=== PATIENT | male | born 1955 | race Caucasian/White ===

== ENCOUNTER 2017-05-28 12:10 | Inpatient (IN) | payer BC ==
--- NOTE | 2017-05-28 12:38 | ED Physician Chart ---
ED Chief Complaint/HPI - Patient Information Date Seen:: 05/28/17 Time Seen:: 12:20 Chief Complaint:: G-Tube Dysfunction History of Present Illness:: onset x 2 days of G-Tube dysfunction; pt reportedly has a history of G-Tube pulling type trauma; no report of H/As, S/T, neck pain, C/P, SOB, Abd. Pain, A/N /V/D/C, bleeding, fever, chills, or urinary s/s Historian:: Patient, EMS Review:: Nurse's Note Reviewed, Old Chart Reviewed, EMS run form Reviewed ED Review of Systems - Review of Systems General/Constitutional: No fever, No chills, No weight loss, No weakness, No diaphoresis, No edema, No loss of appetite Skin: No skin lesions, No rash, No bruising Head: No headache, No light-headedness Eyes: No loss of vision, No pain, No diplopia ENT: No earache, No nasal drainage, No sore throat, No tinnitus Neck: No neck pain, No swelling, No thyromegaly, No stiffness, No mass noted Cardio Vascular: No chest pain, No palpitations, No PND, No orthopnea, No edema Pulmonary: No SOB, No cough, No sputum, No wheezing GI: No nausea, No vomiting, No diarrhea, No pain, No melena, No hematochezia, No constipation, No hematemesis G/U: No dysuria, No frequency, No hematuria, No nacturia Musculoskeletal: No bone or joint pain, No back pain, No muscle pain Endocrine: No polyuria, No polydipsia Psychiatric: Prior psych history, Depression, Anxiety, No suicidal ideation, No homicidal ideation, Auditory hallucination, No visual hallucination Hematopoietic: No bruising, No lymphadenopathy Allergic/Immuno: No urticaria, No angioedema Neurological: No syncope, No focal symptoms, No weakness, No paresthesia, No headache, No seizure, No dizziness, No confusion, No vertigo ED Past Medical History - Past Medical History Obtainable: Yes Past Medical History: HTN, DM, CAD, CVA/TIA, Dyslipidemia, Dementia, Other ( Encephalopathy) Family History: Diabetes Melitus, HTN Social History: Non Smoker, No Alcohol, No Drug Use, Single, Care Facility Surgical History: PEG/GTube Psychiatricy History: Depression, Schizophrenia, Bipolar Medication: Reviewed ED Physical Exam - Physical Examination General/Constitutional: Awake, Well-developed, well-nourished, Alert, No distress, GCS 15, Non-toxic appearing, Ambulatory Head: Atraumatic Eyes: Lids, conjuctiva normal, PERRL, EOMI Skin: Nl inspection, No rash, No skin lesions, No ecchymosis, Well hydrated, No lymphadenopathy ENMT: External ears, nose nl, TM canals nl, Nasal exam nl, Lips, teeth, gums nl , Oropharynx nl, Tonsils nl Neck: Nontender, Full ROM w/o pain, No JVD, No nuchal rigidity, No bruit, No mass, No stridor Respiratory: Nl effort/Exclusion, Clear to Auscultation, No Wheeze/Rhonchi/Rales Cardio Vascular: RRR, No murmur, gallop, rubs, NL S1 S2, Carotid/Femoral/Distal pulses equal bilaterally GI: No tenderness/rebounding/guarding, No organomegaly, No hernia, Normal BS's, Nondistended, No mass/bruits, No McBurney tenderness, Rectum exam nl Other GI comments:: + Dysfunctional G-Tube : No CVA tenderness Extremities: No tenderness or effusion, Full ROM, normal strength in all extremities, No edema, Normal digits & nails Neuro/Psych: Alert/oriented, DTR's symmetric, Normal sensory exam, Normal motor strength, Judgement/insight normal, Mood normal, Normal gait, No focal deficits Misc: Normal back, No paraspinal tenderness ED Labs/Radiology/EKG Results - Lab Results Comments:: Na+: 128; - Radiology Results Comments:: NAD - EKG Interpretations EKG Time:: 13:14 Rate & Rhythm: 111; ST Comments:: old IWMI; non-specific st-t changes ED Septic Shock - . Is Septic Shock (SBP<90, OR Lactate>4 mmol\L) present?: No ED Reassessment (Disposition) - Reassessment Reassessment Condition:: Improved - Diagnosis Diagnosis:: G-Tube Dysfunction; Anemia; Hyponatremia; Tachyarrythmia; Dehydration - Aftercare/Follow up Instructions Aftercare/Follow-Up Instructions:: Counseled pt regarding lab results/diagnosis & need follow up, Counseled pt & family regarding lab results/diagnosis & need follow up - Patient Disposition Discharge/Transfer:: Acute Care w/in this hosp Accepting Physician:: Dr. Nicolle Gramajo Time Called:: 1430 Time Responded:: 14:30 Admitted to:: Med/Surg Spoke to:: Dr. Nicolle Gramajo Admitting Medical Physician:: Dr. Nicolle Gramajo Condition at Disposition:: Stable, Improved
[2017-05-28] MEDS ORDERED: Haloperidol Lactate 5 mg/mL 1mL Vial IVP ONE (12:42)
[2017-05-28] MEDS ORDERED: Haloperidol Lactate 5 mg/mL 1mL Vial ONE (12:53)
[2017-05-28 13:13] LABS: % BASOPHILS 0.3 % (0.0-2.0); % EOSINOPHILS 0.2 % (0.0-5.0); % LYMPHOCYTES 6.7 % (20.0-50.0); % MONOCYTES 10.5 % (2.0-10.0); % NEUTROPHILS 82.3 % (40.0-80.0); HEMATOCRIT 35.8 % (41.0-60); HEMOGLOBIN 12.1 gm/dL (12-16); LYMPHOCYTE ABSOLUTE 0.7 Th/cmm (1.5-3.0); MEAN CELL VOLUME 81.4 fl (80-99); MEAN CORPUSCULAR HEMOGLOBIN 27.4 pg (26.0-30.0); MEAN CORPUSCULAR HGB CONC 33.7 pg (28.0-36.0); MEAN PLATELET VOLUME 7.6 fl; MONOCYTE ABSOLUTE 1.1 Th/cmm (0.3-1.0); NEUTROPHILE ABSOLUTE 8.5 Th/cmm (1.8-8.0); PLATELET COUNT 319 Th/cmm (150-400); WHITE BLOOD COUNT 10.3 Th/cmm (4.8-10.8)
[2017-05-28 13:25] LABS: INR 1.08 (0.5-1.4); PROTHROMBIN TIME (TEST) 11.2 SECONDS (9.5-11.5)
[2017-05-28 13:30] LABS: ALB/GLOB RATIO 1.2 (1.0-1.8); ALBUMIN 3.7 gm/dL (4.2-5.5); ALKALINE PHOSPHATASE 62 U/L (34-104); ANION GAP 15.4 (7.0-16.0); BILIRUBIN,TOTAL 0.5 mg/dL (0.3-1.0); BUN - UREA NITROGEN 16 mg/dL (7-25); CALCIUM SERUM 9.6 mg/dL (8.6-10.3); CARBON DIOXIDE 23.4 mEq/L (21.0-31.0); CHLORIDE 93 mEq/L (98-107); CREATININE - SERUM 0.7 mg/dL (0.7-1.3); CREATININE KINASE 191 U/L (30-223); GFR AFRICAN-AMERICAN > 60.0 ml/min (>90); GFR NON AFRICAN-AMERICAN > 60.0 ml/min; GLUCOSE 96 mg/dL (70-105); POTASSIUM SERUM 3.8 mEq/L (3.5-5.1); SGOT 31 U/L (13-39); SGPT/ALT 27 U/L (7-52); SODIUM SERUM 128 mEq/L (136-145); TOTAL PROTEIN,SERUM 6.9 gm/dL (6.0-8.3)
[2017-05-28 13:42] LABS: TROP I 0.02 ng/mL (0.01-0.05)
--- NOTE | 2017-05-28 14:11 | Diagnostic Imaging Report ---
Portable chest x-ray History: Pain Allowing for portable technique the heart size is normal. No focal pulmonary parenchymal processes. No hilar or mediastinal abnormalities. Degenerative changes noted to the spine. Impression: No acute abnormalities.
[2017-05-28] MEDS ORDERED: Sodium Chloride 0.9% 1,000 ML IV ONE (19:31)
[2017-05-28] MEDS ORDERED: D5-0.45NS 1,000 ML IV SCH (21:17)
[2017-05-28] MEDS: INSULIN ASPART, RECOMBINANT 100 UNITS/ML SUBQ SCH (22:22)
[2017-05-28 22:29] VITALS: BP 143/92
--- NOTE | 2017-05-28 22:41 | Consultation ---
DATE OF CONSULTATION: 05/28/2017 HISTORY AND PHYSICAL: This is a 61-year-old male patient who [facility] with malfunction of the G-tube. The patient is admitted for G-tube placement. No history of PND or orthopnea. PAST MEDICAL HISTORY: The patient has a history of hypertension, diabetes mellitus type 2, stable angina, CVA with late effect, dementia, encephalopathy. FAMILY HISTORY: Diabetes, hypertension. SOCIAL HISTORY: No history of smoking, alcohol abuse. ALLERGIES: No known allergies. PHYSICAL EXAMINATION: VITAL SIGNS: Blood pressure 130/80, pulse 80, respirations 28. HEAD: Normocephalic. No lumps or bumps. EYES: Pupils equal, reactive to light. Fundi show AV nicking, sclerae white, conjunctivae pink. NECK: Carotid 2+. Normal upstroke. JVD flat. Thyroid not palpable. Lymph nodes not palpable. CHEST: Shows increased AP diameter. No kyphosis, scoliosis. LUNGS: Bilateral bronchovesicular breath sounds. HEART: PMI 5th intercostal space with lateral to midclavicular line. S1, S2. No S3, S4, soft systolic murmur grade 3/6 lower left sternal border without radiation. ABDOMEN: Soft. Liver and spleen not palpable. No organomegaly. Bowel sounds active. NEUROLOGIC: Dizziness, CVA with late effect, dysphagia. CLINICAL IMPRESSION: 1. Gastric tube malfunction. 2. Diabetes mellitus type 2. 3. Hypertension. 4. Cerebrovascular accident with late effect. 5. Dysphagia. 6. Protein-calorie malnutrition. 7. Hyperlipidemia. 8. Dementia. 9. Psychosis. PLAN: Admit the patient. We will have a GI consult for a G-tube placement. Continue present care. JOB# [id number]
[2017-05-29] MEDS: INSULIN ASPART, RECOMBINANT 100 UNITS/ML SUBQ SCH ×4 (06:37→23:18)
[2017-05-29] MEDS: D5-0.9%NS 1,000 ML IV SCH (18:50)
--- NOTE | 2017-05-30 03:53 | Consultation ---
DATE OF CONSULTATION: 05/29/2017 REFERRING PHYSICIAN: Dr. Gramajo. REASON FOR CONSULTATION: Malfunctioning G-tube. HISTORY: This is a 61-year-old male with a G-tube that had been pulled out. The patient, by the time I am seeing him G-tube site has closed completely. Discussed with the patient about reinserting it and he does not want one. States, he is able to eat, he would like to eat and does not want further feeding tubes placed in his abdomen. PAST MEDICAL HISTORY: Hypertension, diabetes, coronary artery disease, stroke, TIA, hyperlipidemia, dementia. PAST SURGICAL HISTORY: PEG tube in the past. FAMILY HISTORY: Noncontributory. SOCIAL HISTORY: No tobacco, alcohol or drug use. ALLERGIES: None. CURRENT MEDICATIONS: Insulin and IV fluids. REVIEW OF SYSTEMS: Unobtainable. PHYSICAL EXAMINATION: VITAL SIGNS: Temperature 99.3, breathing 18, pulse of 126, blood pressure 138/85, satting 97%. GENERAL: In no apparent distress. Eyes are anicteric. Normal conjunctivae. HEENT: Normocephalic, atraumatic. Moist mucous membranes. NECK: Soft, supple. CHEST: Clear, no effort. CARDIOVASCULAR: Regular rate and rhythm. ABDOMEN: Soft, nontender, nondistended. SKIN: Warm, dry. EXTREMITIES: Reveal no cyanosis. PSYCHOLOGICAL: Awake. LABORATORY DATA: Labs show a white count 10.3, hemoglobin 12.1, platelets 319. INR 1.08. LFTs within normal limits. IMPRESSION: A 61-year-old male with a malfunctioning G-tube. The patient pulled out the feeding tube. The hole now is closed. I did discuss with the patient reinserting it by doing a new PEG tube procedure. He refuses. He states he is able to eat. PLAN: 1. Consider swallow evaluation. 2. PEG tube was offered. The patient refused. Thank you for allowing me to participate. Please call me if any questions. JOB# [id number]
[2017-05-30 05:34] LABS: URINE MICROSCOPIC INDICATED? YES; URINE SOURCE MIDSTREAM
[2017-05-30 05:46] LABS: URINE BILIRUBIN SMALL (NEGATIVE); URINE BLOOD LARGE (NEGATIVE); URINE GLUCOSE (UA) NEGATIVE (NEGATIVE); URINE KETONE 15 mg/dL (NEGATIVE); URINE LEUKOCYTE ESTERASE TRACE (NEGATIVE); URINE NITRATE NEGATIVE (NEGATIVE); URINE PH 5.5 (4.6 - 8.0); URINE PROTEIN 30 mg/dL (NEGATIVE); URINE UROBILINOGEN 0.2 E.U./dL (0.2 - 1.0)
[2017-05-30 05:55] LABS: URINE CLARITY HAZY (CLEAR); URINE COLOR ORANGE
[2017-05-30 06:01] LABS: URINE ICTOTEST NEGATIVE (NEGATIVE)
[2017-05-30 06:02] LABS: URINE WBC 25-50 /hpf (0-5)
[2017-05-30 06:03] LABS: URINE BACTERIA MANY /hpf (NONE SEEN); URINE EPITHELIAL CELLS FEW /lpf (FEW)
[2017-05-30 07:24] LABS: HEMATOCRIT 37.9 % (41.0-60); HEMOGLOBIN 12.5 gm/dL (12-16); MEAN CELL VOLUME 81.6 fl (80-99); MEAN CORPUSCULAR HEMOGLOBIN 26.9 pg (26.0-30.0); MEAN PLATELET VOLUME 7.9 fl; PLATELET COUNT 313 Th/cmm (150-400); RED BLOOD COUNT 4.65 Mil/cmm (4.30-5.70); RED CELL DISTRIBUTION WIDTH 15.2 % (11.5-20.0)
[2017-05-30 07:28] LABS: INR 1.11 (0.5-1.4); PROTHROMBIN TIME (TEST) 11.6 SECONDS (9.5-11.5)
[2017-05-30 07:38] LABS: WHITE BLOOD COUNT 13.3 Th/cmm (4.8-10.8)
[2017-05-30 08:42] LABS: BAND NEUTROPHILE 1 % (0-10); LYMPHOCYTE 5 % (20-50); MANUAL DIFF REQUIRED? YES; NEUTROPHILS 81 % (40-80); TOTAL CELLS COUNTED 100
[2017-05-30 08:43] LABS: MONOCYTE 13 % (2-10); PLATELET ESTIMATE ADEQUATE (NORMAL)
[2017-05-30] MEDS: INSULIN ASPART, RECOMBINANT 100 UNITS/ML SUBQ SCH ×2 (11:56→17:06)
[2017-05-30] MEDS: D5-0.9%NS 1,000 ML IV SCH (14:33)
--- NOTE | 2017-05-30 17:20 | Operative Report ---
DATE OF SURGERY: 05/30/2017 INPATIENT GASTROINTESTINAL PROCEDURE NAME OF PROCEDURE: PEG tube placement. REFERRING PHYSICIAN: Dr. Gramajo. REASON FOR PROCEDURE: Dysphagia, anorexia. CONSENT: Risks, benefits, alternatives, nature, indication, and possible outcomes were discussed. Mentioned bleeding, infection, perforation, , disability, cardiopulmonary distress and arrest, missed lesion and cancers, need for surgery. The patient and his family expressed understanding and provided informed consent. Also, we made aware of the risk of leakage malfunctioning feeding tube and the patient pulling out the feeding tube. They understand this and again gave informed consent. PREOPERATIVE DIAGNOSES: Dysphagia, anorexia. POSTOPERATIVE DIAGNOSIS: PEG tube placement. MEDICATIONS: Ancef 1 gram provided by anesthesiologist as well as the MAC provided by anesthesiologist. DESCRIPTION OF PROCEDURE: The patient was placed on his back. Upper endoscope advanced from the mouth and second portion of duodenum, which revealed some duodenitis. Biopsies were taken. Scope was brought back into the stomach with retroflexion view of fundus, cardia, and lesser curvature. Scope was straightened and slowly withdrawn into the esophagus for further viewing. Scope was readvanced back into the stomach, which looked grossly normal. Scope was readvanced back down to the duodenum where biopsies were taken. Scope was then brought back to the stomach, insufflation was performed. Transillumination was seen in the left upper quadrant. The area was prepped in the usual sterile fashion. We cannot use the old G-tube site. Because it has already closed. The area was prepped in the usual sterile fashion, 3 mL of 1% lidocaine was used to anesthetize the area. Trocar was advanced from the anterior abdominal wall, entering into the stomach lumen. On endoscope view, wire was passed through the trocar, captured with a snare, and pulled out through the oral end ___. PEG tube was attached to the oral end of the guidewire. Small lateral incision was made at the entry site of the trocar. Wire was pulled into position pulling along with it, the PEG tube. The gastroscope was readvanced back in the stomach where the bumper was seen in satisfactory position. Scope was then removed. COMPLICATIONS: None. FINDINGS: 1. GE junction at 40 cm with a normal esophagus. 2. Normal appearing stomach with PEG tube placement. 3. Duodenitis, status post biopsy. RECOMMENDATIONS: 1. Use G-tube in 8 hours. 2. Check residual every 6 hours and hold it greater than 100 mL. 3. Abdominal binder to protect the G-tube. 4. Protonix 40 mg. Thank you for allowing me to participate. Please call me if any questions. JOB# [id number]
[2017-05-31] MEDS: INSULIN ASPART, RECOMBINANT 100 UNITS/ML SUBQ SCH ×5 (03:46→20:23)
--- NOTE | 2017-05-31 09:42 | GI Progress Note ---
Subjective - Review of Systems Subjective: NO EVENTS Objective - Results Result Diagrams: 05/30/17 05:45 05/28/17 12:51 Recent Labs: Laboratory Last Values WBC 13.3 Th/cmm (4.8-10.8) H D 05/30/17 05:45 RBC 4.65 Mil/cmm (4.30-5.70) 05/30/17 05:45 Hgb 12.5 gm/dL (12-16) 05/30/17 05:45 Hct 37.9 % (41.0-60) L 05/30/17 05:45 MCV 81.6 fl (80-99) 05/30/17 05:45 MCH 26.9 pg (26.0-30.0) 05/30/17 05:45 MCHC Differential 33.0 pg (28.0-36.0) 05/30/17 05:45 RDW 15.2 % (11.5-20.0) 05/30/17 05:45 Plt Count 313 Th/cmm (150-400) 05/30/17 05:45 MPV 7.9 fl 05/30/17 05:45 Neutrophils % PATIENT CARE REPRESENTATIVE 05/30/17 05:45 Band Neutrophils % 1 % (0-10) 05/30/17 05:45 Lymphocytes % PATIENT CARE REPRESENTATIVE 05/30/17 05:45 Monocytes % PATIENT CARE REPRESENTATIVE 05/30/17 05:45 Eosinophils % PATIENT CARE REPRESENTATIVE 05/30/17 05:45 Basophils % PATIENT CARE REPRESENTATIVE 05/30/17 05:45 Neutrophils (Manual) 81 % (40-80) H 05/30/17 05:45 Lymphocytes 5 % (20-50) L 05/30/17 05:45 Monocytes 13 % (2-10) H 05/30/17 05:45 Platelet Estimate ADEQUATE (NORMAL) 05/30/17 05:45 PT 11.6 SECONDS (9.5-11.5) H 05/30/17 05:45 INR 1.11 (0.5-1.4) 05/30/17 05:45 PTT (Actin FS) 28.6 SECONDS (26.0-38.0) 05/28/17 12:51 Sodium 128 mEq/L (136-145) L 05/28/17 12:51 Potassium 3.8 mEq/L (3.5-5.1) 05/28/17 12:51 Chloride 93 mEq/L (98-107) L 05/28/17 12:51 Carbon Dioxide 23.4 mEq/L (21.0-31.0) 05/28/17 12:51 Anion Gap 15.4 (7.0-16.0) 05/28/17 12:51 BUN 16 mg/dL (7-25) 05/28/17 12:51 Creatinine 0.7 mg/dL (0.7-1.3) 05/28/17 12:51 Est GFR ( Amer) > 60.0 ml/min (>90) 05/28/17 12:51 Est GFR (Non-Af Amer) > 60.0 ml/min 05/28/17 12:51 BUN/Creatinine Ratio 22.9 05/28/17 12:51 Glucose 96 mg/dL (70-105) 05/28/17 12:51 POC Glucose 123 MG/DL (70 - 105) H 05/31/17 06:27 Whole Bld Lactic Acid 1.12 mmol/L (0.60-1.99) 05/28/17 12:51 Calcium 9.6 mg/dL (8.6-10.3) 05/28/17 12:51 Total Bilirubin 0.5 mg/dL (0.3-1.0) 05/28/17 12:51 AST 31 U/L (13-39) 05/28/17 12:51 ALT 27 U/L (7-52) 05/28/17 12:51 Alkaline Phosphatase 62 U/L (34-104) 05/28/17 12:51 Creatine Kinase 191 U/L (30-223) 05/28/17 12:51 Troponin I 0.02 ng/mL (0.01-0.05) 05/28/17 12:51 Total Protein 6.9 gm/dL (6.0-8.3) 05/28/17 12:51 Albumin 3.7 gm/dL (4.2-5.5) L 05/28/17 12:51 Globulin 3.2 gm/dL 05/28/17 12:51 Albumin/Globulin Ratio 1.2 (1.0-1.8) 05/28/17 12:51 Urine Source MIDSTREAM 05/28/17 04:35 Urine Color ORANGE 05/28/17 04:35 Urine Clarity HAZY (CLEAR) 05/28/17 04:35 Urine pH 5.5 (4.6 - 8.0) 05/28/17 04:35 Ur Specific Weed >= 1.030 (1.005-1.030) 05/28/17 04:35 Urine Protein 30 mg/dL (NEGATIVE) H 05/28/17 04:35 Urine Glucose (UA) NEGATIVE mg/dL (NEGATIVE) 05/28/17 04:35 Urine Ketones 15 mg/dL (NEGATIVE) H 05/28/17 04:35 Urine Blood LARGE (NEGATIVE) H 05/28/17 04:35 Urine Nitrate NEGATIVE (NEGATIVE) 05/28/17 04:35 Urine Bilirubin SMALL (NEGATIVE) H 05/28/17 04:35 Urine Ictotest NEGATIVE (NEGATIVE) 05/28/17 04:35 Urine Urobilinogen 0.2 E.U./dL (0.2 - 1.0) 05/28/17 04:35 Ur Leukocyte Esterase TRACE (NEGATIVE) H 05/28/17 04:35 Urine RBC 5-10 /hpf (0-5) H 05/28/17 04:35 Urine WBC 25-50 /hpf (0-5) H 05/28/17 04:35 Ur Epithelial Cells FEW /lpf (FEW) 05/28/17 04:35 Urine Bacteria MANY /hpf (NONE SEEN) H 05/28/17 04:35 - Physical Exam Vitals and I&O: Vital Signs Temp 99.4 F 05/31/17 02:00 Pulse 115 05/31/17 08:29 Resp 18 05/31/17 02:00 BP 175/102 05/31/17 08:29 Pulse Ox 96 05/31/17 02:00 Intake & Output 05/30/17 05/31/17 05/31/17 18:59 06:59 18:59 Intake Total 969.167 Balance 969.167 Intake: Intake, IV Amount 969.167 D5-0.9%Ns 1,000 ml @ 50 969.167 mls/hr IV .Q20H [facility] Rx#: [id number] Active Medications: Current Medications Dextrose/Sodium Chloride (D5-0.9%Ns) 1,000 mls @ 50 mls/hr IV .Q20H [facility] Stop: 07/28/17 16:59 Last Admin: 05/30/17 14:33 Dose: 50 mls/hr Insulin Aspart (Novolog) 0 units SUBQ ACHS [facility] PRN Reason: Protocol Stop: 07/27/17 21:44 Last Admin: 05/31/17 06:37 Dose: Not Given Metoprolol Tartrate (Lopressor) 50 mg PO Q12HR [facility] Stop: 07/29/17 20:59 Last Admin: 05/31/17 08:29 Dose: 50 mg Mupirocin (Bactroban Oint) 1 appl NS BID [facility] Stop: 06/04/17 09:01 Last Admin: 05/31/17 08:30 Dose: 1 appl Pantoprazole Sodium (Protonix) 40 mg IVP DAILY [facility] Stop: 07/30/17 08:59 Last Admin: 05/31/17 08:30 Dose: 40 mg Assessment/Plan - Assessment Assessment: 61 YO MALE WITH DYSPHAGIA PT PULLED OUT HIS GT AND THE FISTULA HAD CLOSED THEREFORE EGD WAS DONE AND NEW PEG WAS PLACED ALSO HAD DUODENITIS JARAD TUBE FEEDS 1.CONT TUBE FEEDS JARAD 2.CONT SUPP CARE AND PROTONIX 3.F/U ON BX 4.WILL SEE NEEDED; CALL IF QUESTIONS
--- NOTE | 2017-05-31 13:18 | Pathology Report ---
[id number] Collection date: 05/30/2016 Surgeon: Dr. Debbie Saenz Specimen Description: Duodenum biopsy Gross Description: Received in formalin are two major soft tissue fragments ranging from 0.1 to 0.2 cm in greatest dimension. Totally submitted in one cassette. Microscopic Description: The histologic sections show benign duodenal mucosa with intact intestinal villi, showing no evidence for villous abnormality. Areas of mild chronic inflammation are appreciated consisting of slightly increased numbers of lymphocytes and plasma cells. Diagnosis: 1. Mild nonspecific chronic inflammation, duodenal biopsy. 2. There is no evidence for celiac disease / sprue. [facility]# [id number] [facility]
[2017-05-31] MEDS: D5-0.9%NS 1,000 ML IV SCH (22:30)
--- NOTE | 2017-05-31 23:30 | Discharge Summary ---
DATE OF DISCHARGE: 05/31/2017 DATE OF DISCHARGE: 05/31/2017. HOSPITAL COURSE: This 61-year-old male patient who was brought from intermediate due to malfunctioning of the G-tube. The patient does not take anything orally. PAST MEDICAL HISTORY: Hypertension, diabetes, stable angina, CVA with late effect, dementia and encephalopathy. FAMILY HISTORY: Diabetes and hypertension. SOCIAL HISTORY: No history of smoking or alcohol abuse. ALLERGIES: No known allergies. PHYSICAL EXAMINATION: VITAL SIGNS: Blood pressure 150/80, pulse 78 and respirations 28. HEENT: Normocephalic. No lumps or bumps. EYES: Pupils equal, reactive to light. Fundi show AV nicking, sclerae white, conjunctivae pink. NECK: Carotid 2+. Normal upstroke. JVD flat. Thyroid not palpable. Lymph nodes not palpable. CHEST: Shows increased AP diameter. No kyphosis or scoliosis. LUNGS: Bilateral bronchovesicular breath sounds. Occasional wheeze. No rales. HEART: PMI, fifth intercostal space with lateral to midclavicular line. S1 and S2. No S3 or S4. Soft systolic murmur. ABDOMEN: Soft. Liver and spleen not palpable. EXTREMITIES: The patient has a new G-tube placement. NEUROLOGIC: CVA with late effect and dysphagia. HOSPITAL COURSE: During the hospital stay, the patient had hypertension. The patient was given appropriate medication. The patient's G-tube was placed in. The patient tolerated feeding. At this time, the patient was discharged. DISCHARGE DIAGNOSES: G-tube malfunction with G-tube placement, diabetes mellitus type 2, hypertension, cerebrovascular accident with late effect, dysphagia with protein-calorie malnutrition, hyperlipidemia, dementia and psychosis. PLAN: The patient will be sent to [facility]. JOB# [id number]
[2017-06-01] MEDS: INSULIN ASPART, RECOMBINANT 100 UNITS/ML SUBQ SCH ×4 (06:49→20:59)
[2017-06-01] MEDS: D5-0.9%NS 1,000 ML IV SCH (18:19)
[2017-06-02] MEDS: INSULIN ASPART, RECOMBINANT 100 UNITS/ML SUBQ SCH ×5 (06:42→23:11)
[2017-06-02] MEDS: D5-0.9%NS 1,000 ML IV SCH (08:41)
[2017-06-02 18:25] LABS: HEMATOCRIT 35.9 % (41.0-60); HEMOGLOBIN 11.8 gm/dL (12-16); RED BLOOD COUNT 4.34 Mil/cmm (4.30-5.70); WHITE BLOOD COUNT 3.5 Th/cmm (4.8-10.8)
[2017-06-02 18:26] LABS: MEAN CELL VOLUME 82.8 fl (80-99); MEAN CORPUSCULAR HEMOGLOBIN 27.3 pg (26.0-30.0); MEAN CORPUSCULAR HGB CONC 32.9 pg (28.0-36.0)
[2017-06-02 18:27] LABS: % NEUTROPHILS 60.7 % (40.0-80.0); MEAN PLATELET VOLUME 6.8 fl; RED CELL DISTRIBUTION WIDTH 15.2 % (11.5-20.0)
[2017-06-02 18:28] LABS: % BASOPHILS 0.9 % (0.0-2.0); % EOSINOPHILS 0.5 % (0.0-5.0); % MONOCYTES 6.9 % (2.0-10.0); LYMPHOCYTE ABSOLUTE 1.1 Th/cmm (1.5-3.0); MONOCYTE ABSOLUTE 0.2 Th/cmm (0.3-1.0); NEUTROPHILE ABSOLUTE 2.2 Th/cmm (1.8-8.0)
[2017-06-02 18:29] LABS: PLATELET COUNT 231 Th/cmm (150-400)
[2017-06-02 18:40] LABS: ANION GAP 7.6 (7.0-16.0); BUN - UREA NITROGEN 27 mg/dL (7-25); CARBON DIOXIDE 29.9 mEq/L (21.0-31.0); CHLORIDE 109 mEq/L (98-107); CREATININE - SERUM 0.7 mg/dL (0.7-1.3); GFR AFRICAN-AMERICAN > 60.0 ml/min (>90); GFR NON AFRICAN-AMERICAN > 60.0 ml/min; GLUCOSE 124 mg/dL (70-105); POTASSIUM SERUM 3.5 mEq/L (3.5-5.1); SODIUM SERUM 143 mEq/L (136-145)
[2017-06-02 18:41] LABS: ALB/GLOB RATIO 0.9 (1.0-1.8); ALBUMIN 2.9 gm/dL (4.2-5.5); CALCIUM SERUM 8.3 mg/dL (8.6-10.3); TOTAL PROTEIN,SERUM 6.3 gm/dL (6.0-8.3)
[2017-06-02 18:45] LABS: BILIRUBIN,TOTAL 0.2 mg/dL (0.3-1.0); SGOT 42 U/L (13-39); SGPT/ALT 37 U/L (7-52)
[2017-06-02 18:46] LABS: ALKALINE PHOSPHATASE 51 U/L (34-104)
[2017-06-02] MEDS ORDERED: Amikacin 250 mg/mL 2mL Vial IV ONE (20:00)
[2017-06-03 06:51] LABS: HEMOGLOBIN 11.1 gm/dL (12-16); MEAN CORPUSCULAR HEMOGLOBIN 27.1 pg (26.0-30.0); MONOCYTE ABSOLUTE 0.3 Th/cmm (0.3-1.0)
[2017-06-03] MEDS: D5-0.9%NS 1,000 ML IV SCH (06:54)
[2017-06-03 07:40] LABS: % BASOPHILS 0.8 % (0.0-2.0); % EOSINOPHILS 1.1 % (0.0-5.0); % LYMPHOCYTES 36.7 % (20.0-50.0); % MONOCYTES 9.9 % (2.0-10.0); % NEUTROPHILS 51.5 % (40.0-80.0); HEMATOCRIT 33.4 % (41.0-60); MEAN CELL VOLUME 81.7 fl (80-99); MEAN CORPUSCULAR HGB CONC 33.1 pg (28.0-36.0); NEUTROPHILE ABSOLUTE 1.5 Th/cmm (1.8-8.0); PLATELET COUNT 220 Th/cmm (150-400); RED BLOOD COUNT 4.08 Mil/cmm (4.30-5.70); RED CELL DISTRIBUTION WIDTH 14.9 % (11.5-20.0)
[2017-06-03 08:00] LABS: WHITE BLOOD COUNT 2.8 Th/cmm (4.8-10.8)
[2017-06-03] MEDS: INSULIN ASPART, RECOMBINANT 100 UNITS/ML SUBQ SCH ×4 (08:23→23:00)
[2017-06-03] MEDS ORDERED: Haloperidol Lactate 5 mg/mL 1mL Vial IM ONE (19:06)
[2017-06-03] MEDS ORDERED: Amikacin 250 mg/mL 2mL Vial IV ONE (22:20)
--- NOTE | 2017-06-04 00:40 | Consultation ---
DATE OF CONSULTATION: 06/02/2017 HISTORY OF PRESENT ILLNESS: This is a 61-year-old male was brought to the Emergency Room with G-tube malfunction. The patient was seen by Dr. Saenz from GI. Further workup shows UTI. The patient is unable to provide meaningful history. Chart reviewed. Pertinent information obtained. The patient's urine culture positive for MDRO. Infectious consultation was called for antibiotic management, antibiotic started right away, put on contact isolation. PAST MEDICAL HISTORY: Diabetes, hypertension, hyperlipidemia, coronary artery disease, CVA, dementia. FAMILY HISTORY: Negative. SURGICAL HISTORY: EGD, PEG placement. PHYSICAL EXAMINATION: GENERAL: Alert, awake, not in distress. HEENT: Mild pallor, no icterus or plaque. NECK: Supple. LUNGS: Breath sounds bilateral vesicular. ABDOMEN: Soft. Bowel sounds present. LYMPHATIC: No thyroid. No cervical lymph nodes. LABS: As follows, urine culture MDRO sensitive, amikacin only. White count is 3,500, hemoglobin is 11 grams, platelets 231. Creatinine 0.7. Cultures as mentioned above, also MRSA nares positive. Urine culture enterobacter aerogenes resistant to all and known antibiotics except amikacin. DIAGNOSES: 1. Urinary tract infection. We will start on amikacin. 2. Gastric tube malfunction per [facility]. 3. Diabetes, insulin. 4. Hypertension, losartan. Thank you, Dr. Debbie Gramajo for this consultation. JOB# [id number]
[2017-06-04] MEDS: D5-0.9%NS 1,000 ML IV SCH (05:22)
[2017-06-04] MEDS: INSULIN ASPART, RECOMBINANT 100 UNITS/ML SUBQ SCH ×4 (06:41→22:02)
--- NOTE | 2017-06-04 21:18 | Consultation ---
DATE OF CONSULTATION: 06/04/2017 IDENTIFYING INFORMATION: The patient is a 61-year-old male. REASON FOR CONSULTATION: I was asked to see this patient who is delusional, acting out yesterday, yelling and screaming, and responding to internal stimuli. He was admitted from a nursing facility because of malfunctioning G-tube. The patient was a poor historian. He believes that he is living home. He is not sure where he is living. He believes he is in acute facility, ____ developmentally disabled people, and he is not sure why he is here. He denies prior psychiatric treatment; however, he was a poor historian. He apparently have a history of dementia and psychosis, but he was unable to verify that. PAST PSYCHIATRIC HISTORY: According to the records of psychosis and dementia, the patient himself was a poor historian. Denies prior suicide attempt. He is not reliable. MEDICAL HISTORY: The patient with a history of seizure disorder, CVA, hypertension, and diabetes mellitus type 2. He has a G-tube, dysphagia, protein-calorie malnutrition, and hyperlipidemia. ALLERGIES: He has no known drug allergies. MEDICATIONS: He has been on no psychotropic medications, though yesterday ordered him to have Haldol, Ativan, and Benadryl because of his agitation and acting out behavior. He is currently on insulin, Ativan 0.5 mg as needed every 6 hours, losartan, metoprolol, mupirocin ointment, and pantoprazole. SOCIAL HISTORY: He is , has 3 children; however, unable to verify where his is and how many children exactly he has, he gave me different numbers, but has 8th grade education. MENTAL STATUS EXAMINATION: Unable to make safe plan for self-care. When asked about suicide and homicide, he denies; however, is a poor historian. When asked that if he felt he wanted to harm, he was hearing voices or seeing things, he denied; however, the staff heard him talking to himself, delusional, unable to participate in a meaningful conversation, unable to participate in memory testing, unable to tell me the date, he was able to ____ date of , but he believes he is 33 years of age. His long and short term memory is poor. Insight and judgment is impaired. IMPRESSION: AXIS I: Possible history of schizophrenia. MEDICAL DIAGNOSIS: Deferred to the medical doctor as described above. PLAN: I would recommend to add Abilify because of his psychotic symptoms and the patient may need to be transferred to [facility] if medically cleared and still agitated. Thank you very much for allowing me to participate in the care of this most interesting gentleman. JOB# [id number]
[2017-06-05] MEDS: INSULIN ASPART, RECOMBINANT 100 UNITS/ML SUBQ SCH ×3 (06:29→18:45)
--- NOTE | 2017-06-05 11:26 | Progress Notes ---
DATE: 06/05/2017 Case was discussed with staff of the patient, reviewed records. The patient continues to be irritable, delusional. Continues to be unable to make safe plan for self-care, unpredictable, impulsive, seems to be labile at times. He is in denial about any intent to harm himself or anybody. He cannot have a reasonable conversation, so he is not a reliable historian. I did initiate Abilify on him yesterday with no side effects. I would recommend the patient be transferred to [facility] when medically cleared. Thank you very much for allowing me to participate in the care of this most interesting gentleman. JOB# [id number]
--- NOTE | 2017-06-07 14:58 | Discharge Summary ---
General Discharge Summary - Discharge Summary Date of Admission: 06/06/17 Admitting Diagnosis: Dizziness, Generalized weaknesss, UTI, Possible sepsis Patient Problems: All Active Problems weakness and dizziness resolved. (Acute) Discharge Date: 06/07/17 Laboratory Findings: Laboratory Tests 05/28/17 05/29/17 05/29/17 22:20 06:00 11:40 WBC RBC Hgb Hct MCV MCH MCHC Differential RDW Plt Count MPV Neutrophils % Band Neutrophils % Lymphocytes % Monocytes % Eosinophils % Basophils % Neutrophils (Manual) Lymphocytes Monocytes Platelet Estimate PT INR Sodium Potassium Chloride Carbon Dioxide Anion Gap BUN Creatinine Est GFR ( Amer) Est GFR (Non-Af Amer) BUN/Creatinine Ratio Glucose POC Glucose 89 127 H 138 H Calcium Total Bilirubin AST ALT Alkaline Phosphatase Total Protein Albumin Globulin Albumin/Globulin Ratio Amikacin Peak Amikacin Trough 05/29/17 05/29/17 05/30/17 16:51 20:54 05:36 WBC RBC Hgb Hct MCV MCH MCHC Differential RDW Plt Count MPV Neutrophils % Band Neutrophils % Lymphocytes % Monocytes % Eosinophils % Basophils % Neutrophils (Manual) Lymphocytes Monocytes Platelet Estimate PT INR Sodium Potassium Chloride Carbon Dioxide Anion Gap BUN Creatinine Est GFR ( Amer) Est GFR (Non-Af Amer) BUN/Creatinine Ratio Glucose POC Glucose 140 H 145 H 141 H Calcium Total Bilirubin AST ALT Alkaline Phosphatase Total Protein Albumin Globulin Albumin/Globulin Ratio Amikacin Peak Amikacin Trough 05/30/17 05/30/17 05/30/17 05:45 05:45 11:48 WBC 13.3 H D RBC 4.65 Hgb 12.5 Hct 37.9 L MCV 81.6 MCH 26.9 MCHC Differential 33.0 RDW 15.2 Plt Count 313 MPV 7.9 Neutrophils % PUBLICATIONS DESIGNER Band Neutrophils % 1 Lymphocytes % PUBLICATIONS DESIGNER Monocytes % PUBLICATIONS DESIGNER Eosinophils % PUBLICATIONS DESIGNER Basophils % PUBLICATIONS DESIGNER Neutrophils (Manual) 81 H Lymphocytes 5 L Monocytes 13 H Platelet Estimate ADEQUATE PT 11.6 H INR 1.11 Sodium Potassium Chloride Carbon Dioxide Anion Gap BUN Creatinine Est GFR ( Amer) Est GFR (Non-Af Amer) BUN/Creatinine Ratio Glucose POC Glucose 132 H Calcium Total Bilirubin AST ALT Alkaline Phosphatase Total Protein Albumin Globulin Albumin/Globulin Ratio Amikacin Peak Amikacin Trough 05/30/17 05/31/17 05/31/17 22:14 06:27 12:04 WBC RBC Hgb Hct MCV MCH MCHC Differential RDW Plt Count MPV Neutrophils % Band Neutrophils % Lymphocytes % Monocytes % Eosinophils % Basophils % Neutrophils (Manual) Lymphocytes Monocytes Platelet Estimate PT INR Sodium Potassium Chloride Carbon Dioxide Anion Gap BUN Creatinine Est GFR ( Amer) Est GFR (Non-Af Amer) BUN/Creatinine Ratio Glucose POC Glucose 106 H 123 H 113 H Calcium Total Bilirubin AST ALT Alkaline Phosphatase Total Protein Albumin Globulin Albumin/Globulin Ratio Amikacin Peak Amikacin Trough 05/31/17 05/31/17 06/01/17 16:22 19:46 05:04 WBC RBC Hgb Hct MCV MCH MCHC Differential RDW Plt Count MPV Neutrophils % Band Neutrophils % Lymphocytes % Monocytes % Eosinophils % Basophils % Neutrophils (Manual) Lymphocytes Monocytes Platelet Estimate PT INR Sodium Potassium Chloride Carbon Dioxide Anion Gap BUN Creatinine Est GFR ( Amer) Est GFR (Non-Af Amer) BUN/Creatinine Ratio Glucose POC Glucose 107 H 113 H 89 Calcium Total Bilirubin AST ALT Alkaline Phosphatase Total Protein Albumin Globulin Albumin/Globulin Ratio Amikacin Peak Amikacin Trough 06/01/17 06/01/17 06/02/17 16:46 20:00 04:33 WBC RBC Hgb Hct MCV MCH MCHC Differential RDW Plt Count MPV Neutrophils % Band Neutrophils % Lymphocytes % Monocytes % Eosinophils % Basophils % Neutrophils (Manual) Lymphocytes Monocytes Platelet Estimate PT INR Sodium Potassium Chloride Carbon Dioxide Anion Gap BUN Creatinine Est GFR ( Amer) Est GFR (Non-Af Amer) BUN/Creatinine Ratio Glucose POC Glucose 105 84 103 Calcium Total Bilirubin AST ALT Alkaline Phosphatase Total Protein Albumin Globulin Albumin/Globulin Ratio Amikacin Peak Amikacin Trough 06/02/17 06/02/17 06/02/17 11:35 15:56 17:59 WBC 3.5 L D RBC 4.34 Hgb 11.8 L Hct 35.9 L MCV 82.8 MCH 27.3 MCHC Differential 32.9 RDW 15.2 Plt Count 231 D MPV 6.8 Neutrophils % 60.7 Band Neutrophils % Lymphocytes % 31.0 Monocytes % 6.9 Eosinophils % 0.5 Basophils % 0.9 Neutrophils (Manual) Lymphocytes Monocytes Platelet Estimate PT INR Sodium Potassium Chloride Carbon Dioxide Anion Gap BUN Creatinine Est GFR ( Amer) Est GFR (Non-Af Amer) BUN/Creatinine Ratio Glucose POC Glucose 157 H 105 Calcium Total Bilirubin AST ALT Alkaline Phosphatase Total Protein Albumin Globulin Albumin/Globulin Ratio Amikacin Peak Amikacin Trough 06/02/17 06/02/17 06/03/17 17:59 22:33 06:20 WBC 2.8 L RBC 4.08 L Hgb 11.1 L Hct 33.4 L MCV 81.7 MCH 27.1 MCHC Differential 33.1 RDW 14.9 Plt Count 220 MPV 8.0 Neutrophils % 51.5 Band Neutrophils % Lymphocytes % 36.7 Monocytes % 9.9 Eosinophils % 1.1 Basophils % 0.8 Neutrophils (Manual) Lymphocytes Monocytes Platelet Estimate PT INR Sodium 143 D Potassium 3.5 Chloride 109 H Carbon Dioxide 29.9 Anion Gap 7.6 BUN 27 H Creatinine 0.7 Est GFR ( Amer) > 60.0 Est GFR (Non-Af Amer) > 60.0 BUN/Creatinine Ratio 38.6 Glucose 124 H POC Glucose 90 Calcium 8.3 L Total Bilirubin 0.2 L AST 42 H ALT 37 Alkaline Phosphatase 51 Total Protein 6.3 Albumin 2.9 L Globulin 3.4 Albumin/Globulin Ratio 0.9 L Amikacin Peak Amikacin Trough 06/03/17 06/03/17 06/03/17 06:55 11:19 16:17 WBC RBC Hgb Hct MCV MCH MCHC Differential RDW Plt Count MPV Neutrophils % Band Neutrophils % Lymphocytes % Monocytes % Eosinophils % Basophils % Neutrophils (Manual) Lymphocytes Monocytes Platelet Estimate PT INR Sodium Potassium Chloride Carbon Dioxide Anion Gap BUN Creatinine Est GFR ( Amer) Est GFR (Non-Af Amer) BUN/Creatinine Ratio Glucose POC Glucose 114 H 118 H 100 Calcium Total Bilirubin AST ALT Alkaline Phosphatase Total Protein Albumin Globulin Albumin/Globulin Ratio Amikacin Peak Amikacin Trough 06/03/17 06/03/17 06/03/17 20:00 22:47 23:30 WBC RBC Hgb Hct MCV MCH MCHC Differential RDW Plt Count MPV Neutrophils % Band Neutrophils % Lymphocytes % Monocytes % Eosinophils % Basophils % Neutrophils (Manual) Lymphocytes Monocytes Platelet Estimate PT INR Sodium Potassium Chloride Carbon Dioxide Anion Gap BUN Creatinine Est GFR ( Amer) Est GFR (Non-Af Amer) BUN/Creatinine Ratio Glucose POC Glucose 64 L 89 Calcium Total Bilirubin AST ALT Alkaline Phosphatase Total Protein Albumin Globulin Albumin/Globulin Ratio Amikacin Peak Amikacin Trough 3.6 06/03/17 06/04/17 06/04/17 23:45 06:39 12:32 WBC RBC Hgb Hct MCV MCH MCHC Differential RDW Plt Count MPV Neutrophils % Band Neutrophils % Lymphocytes % Monocytes % Eosinophils % Basophils % Neutrophils (Manual) Lymphocytes Monocytes Platelet Estimate PT INR Sodium Potassium Chloride Carbon Dioxide Anion Gap BUN Creatinine Est GFR ( Amer) Est GFR (Non-Af Amer) BUN/Creatinine Ratio Glucose POC Glucose 101 108 H Calcium Total Bilirubin AST ALT Alkaline Phosphatase Total Protein Albumin Globulin Albumin/Globulin Ratio Amikacin Peak 26.2 Amikacin Trough 06/04/17 06/04/17 06/05/17 16:29 21:55 06:05 WBC RBC Hgb Hct MCV MCH MCHC Differential RDW Plt Count MPV Neutrophils % Band Neutrophils % Lymphocytes % Monocytes % Eosinophils % Basophils % Neutrophils (Manual) Lymphocytes Monocytes Platelet Estimate PT INR Sodium Potassium Chloride Carbon Dioxide Anion Gap BUN Creatinine Est GFR ( Amer) Est GFR (Non-Af Amer) BUN/Creatinine Ratio Glucose POC Glucose 95 93 118 H Calcium Total Bilirubin AST ALT Alkaline Phosphatase Total Protein Albumin Globulin Albumin/Globulin Ratio Amikacin Peak Amikacin Trough 06/05/17 18:02 WBC RBC Hgb Hct MCV MCH MCHC Differential RDW Plt Count MPV Neutrophils % Band Neutrophils % Lymphocytes % Monocytes % Eosinophils % Basophils % Neutrophils (Manual) Lymphocytes Monocytes Platelet Estimate PT INR Sodium Potassium Chloride Carbon Dioxide Anion Gap BUN Creatinine Est GFR ( Amer) Est GFR (Non-Af Amer) BUN/Creatinine Ratio Glucose POC Glucose 85 Calcium Total Bilirubin AST ALT Alkaline Phosphatase Total Protein Albumin Globulin Albumin/Globulin Ratio Amikacin Peak Amikacin Trough Disposition: XFR/ANOTHER INPT PSYCH HOSP Home Medications: Home Medication Medication Instructions Recorded Type Sodium Chloride 1 gm GT BID 05/28/17 History Acetaminophen [Tylenol] 650 mg PO Q6H PRN tab 05/31/17 Rx Insulin Aspart, Recombinant See Protocol SUBQ ACHS unit 05/31/17 Rx [NovoLOG] Losartan Potassium [Cozaar] 100 mg PO DAILY tab 05/31/17 Rx Metoprolol Tartrate [Lopressor] 50 mg PO Q12HR tab 05/31/17 Rx Mupirocin Oint [Mupirocin*] 1 appl NS BID appl 05/31/17 Rx aripIPRAZOLE [Abilify*] 5 mg PO DAILY tab 06/05/17 Rx traMADol HCl [Ultram*] 50 mg PO Q4HR PRN tab 06/05/17 Rx Consults and Follow-Up: Polo Luis [Primary Care Provider] - Instructions: Gastric Tube Replacement
== END 2017-06-05 19:01 | DRG 394 ==
LOC: ER 12:10 → MSI 19:55
PROVIDERS: ADMIT General Practice; ATTEND General Practice
PROC: 0DH63UZ Insertion of Feeding Device into Stomach, Percutaneous Approach (ICD-10-PCS; principal; 2017-05-30)
PROC: 0DB98ZX Excision of Duodenum, Via Natural or Artificial Opening Endoscopic, Diagnostic (ICD-10-PCS; 2017-05-30)
DX: K94.23 Gastrostomy malfunction (principal); E46 Unspecified protein-calorie malnutrition; F03.90 Unspecified dementia, unspecified severity, without behavioral disturbance, psychotic disturbance, mood disturbance, and anxiety; E87.1 Hypo-osmolality and hyponatremia; E11.9 Type 2 diabetes mellitus without complications; E78.5 Hyperlipidemia, unspecified; D64.9 Anemia, unspecified; N39.0 Urinary tract infection, site not specified; K29.80 Duodenitis without bleeding; I10 Essential (primary) hypertension; F29 Unspecified psychosis not due to a substance or known physiological condition; I25.10 Atherosclerotic heart disease of native coronary artery without angina pectoris; E86.0 Dehydration; I69.30 Unspecified sequelae of cerebral infarction; Z83.3 Family history of diabetes mellitus; Z82.49 Family history of ischemic heart disease and other diseases of the circulatory system; Z68.23 Body mass index [BMI] 23.0-23.9, adult
CPT/HCPCS: 36415-UA; 71010-TC; 80053-TC; 80150-TC; 81001-TC; 82550-TC; 82948-90; 83605; 84484-TC; 85007-TC; 85025-TC; 85027-TC; 85610-TC; 85730-TC; 87086-90; 93005; 96374; 96375; C9113; J0278; J0690; J1200; J1630; J1815; J2060; J7030; J7042; X3401; Z7506; Z7610

== ENCOUNTER 2017-06-05 19:02 | Inpatient (IN) | payer BC ==
[2017-06-05 21:55] VITALS: BP 152/95
[2017-06-06] MEDS ORDERED: INSULIN ASPART, RECOMBINANT 100 UNITS/ML SUBQ SCH (07:30)
--- NOTE | 2017-06-06 13:00 | Psychosocial Evaluation ---
DATE OF SERVICE: 06/06/2017 IDENTIFYING INFORMATION: The patient is a 61-year-old male. CHIEF COMPLAINT: No answer. HISTORY OF PRESENT ILLNESS: The patient was transferred from medical floor and from there, he was delusional, he was yelling and screaming, unpredictable. He was confused. He believes that he was in some kind of a unit for the disabled people. Unable to tell me his age, where he is, and why he is here. He believes he was 33 years of age. Unable to give me any information. He was talking to himself, yelling and screaming, delusional. PAST PSYCHIATRIC HISTORY: Unobtainable and I did initiate the insulin and Abilify. He had to be medicated on an emergency basis 2 days ago, so I initiated Abilify on him. MEDICAL HISTORY: Deferred to the medical doctor. ALLERGIES: The patient has no known drug allergies. MEDICATIONS: The patient has been on pain medication, tramadol. He is diabetic, on insulin. He has high blood pressure; he is on losartan and metoprolol. FAMILY AND SOCIAL HISTORY: Unable to obtain any information from the patient because he is a very poor historian. Apparently, he lives in a nursing facility. Unable to tell me anything regarding substance abuse. MENTAL STATUS EXAMINATION: The patient is appropriately dressed, not well groomed. He has diapers on. Unable to care for himself. He is unpredictable, impulsive, yelling and screaming, delusional, paranoid, hard to understand. Unable to make safe plan for self-care. His sleep and appetite varies. His long or short-term memory is poor. He believes he is 33 years of age. Unable to tell me his date of or the date of today. His insight and judgment are impaired. IMPRESSION: AXIS I: Psychosis, not otherwise specified, rule out bipolar disorder with psychosis. MEDICAL DIAGNOSIS: Deferred to the medical doctor. ASSETS: He is accepting treatment, negative poor coping skills. INITIAL TREATMENT PLAN: Continue with Abilify. We will do group therapy, milieu therapy, and individual therapy. ESTIMATED LENGTH OF STAY: 3-7 days. DISCHARGE CRITERIA: Decrease in psychosis and agitation. After discharge, outpatient treatment. JOB# [id number]
[2017-06-06] MEDS: INSULIN ASPART SLIDING SCALE 100 UNITS/ML UNIT SUBQ SCH (21:44)
[2017-06-07] MEDS: INSULIN ASPART SLIDING SCALE 100 UNITS/ML UNIT SUBQ SCH ×4 (06:45→20:45)
[2017-06-07] MEDS ORDERED: Haloperidol Lactate 5 mg/mL 1mL Vial IM ONE (16:03)
[2017-06-07] MEDS ORDERED: Haloperidol Lactate 5 mg/mL 1mL Vial ONE (16:03)
--- NOTE | 2017-06-07 19:47 | Progress Notes ---
DATE: 06/07/2017 Case discussed with staff of the patient. The patient was loud, agitated, continues to need help with his ADLs. Continues to be unpredictable, impulsive, needing redirection. He is still acting out. Apparently, they have not given him the Abilify since he has been here and so, I have him on Abilify 5 mg and we will be increasing the dose till he start taking it again, so he does not have side effects. He continues to be very hard to redirect, confused, unable to participate in meaningful conversation, make safe plan for self-care. He is not responding well to redirection; loud, yelling and screaming at times. We will continue to work with the patient in group therapy, milieu therapy, and adjust medications as needed. JOB# [id number]
--- NOTE | 2017-06-08 03:54 | Consultation ---
DATE OF CONSULTATION: 06/06/2017 HISTORY OF PRESENT ILLNESS: This is a 61-year-old male, who was admitted to med/surg with UTI and was found to have Alzheimer's and agitation. The patient was treated care for UTI and then transferred to [facility]. He remains confused, unable to provide medical history. Old chart reviewed, pertinent information obtained. PAST HISTORY: Also, the patient had MDRO in the urine treated with amikacin. Also has MRSA in nose and started on Bactroban. PAST MEDICAL HISTORY: Coronary artery disease, hypertension, hyperlipidemia, CVA. ALLERGIES: None. FAMILY HISTORY: Negative. SOCIAL HISTORY: Nonsmoker. REVIEW OF SYSTEMS: A 14-point review of system negative except above. PHYSICAL EXAMINATION: GENERAL: Elderly male confused. VITAL SIGNS: Temperature 98, pulse 96, respirations 18, blood pressure 131/91. HEENT: Mild pallor, no icterus or plaque. NECK: Supple. LUNGS: Breath sounds bilateral vesicular. ABDOMEN: Soft. Bowel sounds . LYMPHATICS: No thyroid, no cervical lymph nodes. DIAGNOSES: Methicillin-resistant Staphylococcus aureus, continue Bactroban. Multidrug-resistant organisms urine, status post treatment. Diabetes, insulin. Ativan for anxiety. Hypertension, Cozaar and Lopressor. Pain control with tramadol. Rest of the care as ordered in CPOE. Thank you, Dr. Andrews for this consultation. Discussed with the staff. JOB# [id number]
[2017-06-08] MEDS: INSULIN ASPART SLIDING SCALE 100 UNITS/ML UNIT SUBQ SCH ×4 (07:01→21:00)
[2017-06-08 16:42] LABS: % BASOPHILS 0.8 % (0.0-2.0); % EOSINOPHILS 1.1 % (0.0-5.0); % LYMPHOCYTES 19.1 % (20.0-50.0); % MONOCYTES 9.6 % (2.0-10.0); % NEUTROPHILS 69.4 % (40.0-80.0); EOSINOPHILE ABSOLUTE 0.1 Th/cmm (0.1-0.4); HEMATOCRIT 33.5 % (41.0-60); HEMOGLOBIN 10.9 gm/dL (12-16); LYMPHOCYTE ABSOLUTE 1.1 Th/cmm (1.5-3.0); MEAN CELL VOLUME 81.4 fl (80-99); MEAN CORPUSCULAR HEMOGLOBIN 26.6 pg (26.0-30.0); MEAN CORPUSCULAR HGB CONC 32.6 pg (28.0-36.0); MEAN PLATELET VOLUME 7.7 fl; MONOCYTE ABSOLUTE 0.6 Th/cmm (0.3-1.0); NEUTROPHILE ABSOLUTE 4.2 Th/cmm (1.8-8.0); RED BLOOD COUNT 4.11 Mil/cmm (4.30-5.70); RED CELL DISTRIBUTION WIDTH 14.7 % (11.5-20.0)
[2017-06-08 16:46] LABS: PLATELET COUNT 311 Th/cmm (150-400)
--- NOTE | 2017-06-08 20:35 | Discharge Summary ---
DATE OF DISCHARGE: 06/05/2017 ADDENDUM TO DISCHARGE SUMMARY HOSPITAL COURSE: This 61-year-old male patient who had malfunctioning G-tube. The patient at the present time had ESBL urinary tract infection, hence the patient was seen by Infectious Disease. The patient was given IV antibiotic following this, the patient on 06/05/2017 was transferred to [facility]. DISCHARGE DIAGNOSES: Gastric tube malfunction with gastric tube placement, diabetes mellitus type 2, hypertension, cerebrovascular accident with late effect, dysphagia with protein-calorie malnutrition, hyperlipidemia, dementia, psychosis, extended spectrum beta-lactamases urinary tract infection. The patient is on intravenous antibiotics, seen by Infectious Disease. JOB# [id number]
[2017-06-09] MEDS: INSULIN ASPART SLIDING SCALE 100 UNITS/ML UNIT SUBQ SCH ×4 (07:03→21:20)
--- NOTE | 2017-06-09 09:49 | Diagnostic Imaging Report ---
Right elbow (3 views) HISTORY: Pain No definite acute bony abnormalities. No fractures. Joint spaces appear normal. No radiographic evidence of a joint effusion. IMPRESSION: 1. No acute abnormalities. In the presence of recent trauma and persistent symptoms, a repeat radiograph in 5-7 days may be helpful for detection of a subtle or occult fracture.
--- NOTE | 2017-06-09 19:18 | Progress Notes ---
DATE: 06/08/2017 HISTORY: The patient was seen, chart reviewed, and discussed with staff. The patient continues to be irritable, agitated, requiring numerous redirections. Also include angry outbursts; however, he has been compliant with his medications despite being verbally resistive. PLAN: The patient continues to be very unpredictable, hostile and aggressive, so he will require inpatient care center treatment. We will monitor patient on a daily basis for response and titrate medications as needed. [facility]# [id number]
--- NOTE | 2017-06-10 00:30 | Progress Notes ---
DATE: 06/09/2017 SUBJECTIVE: The patient was seen, chart reviewed, and discussed with staff. The patient continues to be loud, irritable, agitated, requiring numerous redirections. He has, however, been has ever been compliant with medications following unit rules and redirections. PLAN: The patient continues to be very unpredictable and aggressive, so that he will require inpatient care center treatment. We will monitor patient on a daily basis for response to treatment and titrate meds as needed. JOB# [id number]
[2017-06-10] MEDS: INSULIN ASPART SLIDING SCALE 100 UNITS/ML UNIT SUBQ SCH ×3 (06:46→21:42)
--- NOTE | 2017-06-10 21:19 | Progress Notes ---
DATE: 06/10/2017 Case was discussed with staff of patient, reviewed records. The patient continues to be irritable and aggressive. He has mittens on both of his hands. He has diapers, unable to care for himself or make safe plan for self-care. Continues to be yelling and screaming. Compliant with the medication, no side effects, no sedation, no nausea, no extrapyramidal symptoms. I will be increasing his Abilify to 7.5 mg a day to help decrease his agitation, yelling and screaming and no side effects, no sedation, no nausea, no extrapyramidal symptoms. We will continue to work with the patient in group therapy, milieu therapy, and adjust medication as needed. JOB# [id number]
[2017-06-11] MEDS: INSULIN ASPART SLIDING SCALE 100 UNITS/ML UNIT SUBQ SCH ×4 (06:48→21:49)
--- NOTE | 2017-06-11 17:48 | Progress Notes ---
DATE: 06/11/2017 Case was discussed with staff of patient, reviewed records. The patient continues to have mood swings, irritability, continues to have poor insight. Continues to be unable to make safe plan for self-care. He is still unpredictable, impulsive, demented, confused. He is compliant with the medication, no side effects, no sedation, no nausea, no extrapyramidal symptoms. I did increase his Abilify to 7.5 mg daily and we will continue patient in group therapy, milieu therapy, adjust medication as needed. JOB# [id number]
[2017-06-12] MEDS: INSULIN ASPART SLIDING SCALE 100 UNITS/ML UNIT SUBQ SCH ×4 (06:30→21:46)
--- NOTE | 2017-06-12 11:40 | Progress Notes ---
DATE: 06/12/2017 SUBJECTIVE: Case was discussed with staff of the patient, reviewed records. The patient reportedly slept better last night. He continues to be confused, easily agitated, continues to be unpredictable, impulsive with episodes of agitation, yelling and screaming. He slept better. Appetite is improving. He is unable to carry on a conversation, ____ exactly where he is, why he is here, demented, confused. No side effects to the medication, no sedation, no nausea, no extrapyramidal symptoms. PLAN: I did increase his Abilify to 7.5 mg at bedtime and we will continue to work with the patient in group therapy, milieu therapy, adjust medications as needed. [facility]# [id number]
[2017-06-13] MEDS: INSULIN ASPART SLIDING SCALE 100 UNITS/ML UNIT SUBQ SCH ×4 (06:38→21:00)
[2017-06-13] MEDS ORDERED: Diatrizoate Meglumine/Diatri 30 mL Sol PO ONE (10:06)
--- NOTE | 2017-06-13 11:32 | Diagnostic Imaging Report ---
Upper GI (Limited) HISTORY: Gastrostomy tube placement Water-soluble contrast was instilled through the patient's gastrostomy tube. The exam demonstrates opacification of the gastric lumen with flow contrast into the small bowel. IMPRESSION: 1. Confirmation of gastrostomy tube within the gastric lumen 2. Incidental note is made of an inferior vena cava filter
--- NOTE | 2017-06-13 21:32 | Progress Notes ---
DATE: 06/13/2017 Case was discussed with staff of the patient. The patient continues to be unpredictable, impulsive with episodes of yelling and screaming. Continues poor insight. Unable to make safe plan for self-care. He is scheduled to do upper GI series that was done today. He is unable to participate in meaningful conversation or make safe plan for self-care, re-initiating Aricept on this patient to help his cognition. His CBC shows low hemoglobin, low hematocrit and an upper GI tissues was done for him. There is no other lab work available. The result of that they have a gastrostomy tube that was placed for the patient, so he can eat. They put water ____ gastrostomy tube and opacification of the gastric lumen was slow contrast into the small bowel and that they confirm the gastrostomy tube was within the gastric lumen incident note is made of the superior vena cava filter and initiating Aricept on this patient. We will continue in group therapy and milieu therapy, adjust medications as needed. JOB# [id number]
[2017-06-14] MEDS: INSULIN ASPART SLIDING SCALE 100 UNITS/ML UNIT SUBQ SCH ×4 (06:40→21:36)
--- NOTE | 2017-06-14 08:05 | Consultation ---
DATE OF CONSULTATION: 06/13/2017 CONSULTING PHYSICIAN: Lester Gramajo M.D. REASON FOR CONSULTATION: Pain with G-tube feeding. HISTORY OF PRESENT ILLNESS: The patient is a 61-year-old male with medical history significant for Alzheimer's dementia, coronary artery disease, hypertension, hyperlipidemia, previous stroke in the past, who is admitted to the Geropsychiatric Unit with aggression. The patient has been admitted for little over a week now and has been receiving therapy for his behavioral issues. It was noted last night that with his G-tube feeding, he was complaining of pain in his abdomen. He has since refused to ___ this morning, although medication has been administered successfully without pain. GI is asked to evaluate the G-tube. PAST MEDICAL HISTORY: Coronary artery disease, previous stroke, Alzheimer dementia, hypertension, hyperlipidemia. PAST SURGICAL HISTORY: G-tube insertion. FAMILY HISTORY: Noncontributory. SOCIAL HISTORY: There is no documented history of alcoholism or illicit drug use. REVIEW OF SYSTEMS: A 12-point review of systems was performed with the patient and negative other than the pertinent positives are mentioned in the history of present illness. Specifically, the patient denies any melena, hematemesis, or hematochezia. CURRENT MEDICATIONS: Include Tylenol, Abilify, insulin sliding scale, lorazepam, Cozaar, metoprolol, tramadol. PHYSICAL EXAMINATION: VITAL SIGNS: Blood pressure is 148/94, pulse of 96 beats per minute, respiratory rate is 14, temperature afebrile. GENERAL: The patient is sitting upright in bed. He is alert and oriented x 1-2, no apparent distress. HEENT: Normocephalic, atraumatic. He had no scleral icterus. Pupils are equal and reactive to light. Extraocular muscles are intact with moist mucous membranes. NECK: Supple, no JVD, no thyromegaly, no lymphadenopathy. CHEST: Reduced breath sounds at the bases. CARDIOVASCULAR: S1, S2 are present, regular rate and rhythm. ABDOMEN: There is a G-tube within the mid abdomen on palpation. It does appear that internal bumper is possibly more shallow than it should be. There is a tiny bit of erythema around the tube insertion. Nontender, otherwise no guarding or rebound. EXTREMITIES: No pitting edema. Pulses are present. SKIN: No obvious jaundice. LABORATORY DATA: From 06/08/2017 show white blood cell count 6, hemoglobin 10.9, platelet count 311. INR is 1.1. Sodium 143, potassium 3.5, BUN 27, creatinine 0.7, AST 42, ALT 37, total bilirubin 0.2. IMPRESSION: This is a 61-year-old man with old Alzheimer dementia with G-tube dependence, coronary artery disease, hypertension, hyperlipidemia, previous stroke, who was admitted to Ger[facility] Psych[facility] Unit with behavioral issues. 1. Abdominal pain with G-tube feeding last night. 2. Alzheimer dementia. 3. Dysphagia. 4. Coronary artery disease. 5. Previous stroke. DISCUSSION: On palpation, it does seem that the internal bumper of the G-tube may be too shallow. Thus, we will get a KUB of Gastrografin injection in order to confirm that the G-tube is in the correct place within the stomach. If it is not within the correct place, thus G-tube will need to be pulled and the new G-tube will need to be inserted. If the G-tube is in the right place on the Gastrografin study, then we can resume feedings and track if the patient continues to have pain. If he does continue to have pain, we can try different modality of feeding such as low continuous feeding rather than bolus feeding and we can also think about adding on a PPI or even performing endoscopy to look for ulcer. Thank you for allowing me to participate in the care of this patient. Please call with any further questions. JOB# [id number]
--- NOTE | 2017-06-14 09:44 | GI Progress Note ---
Subjective - Review of Systems Service Date: 06/14/17 Subjective: Pt reports feeding last night and this morning was ok without pain Objective - Results Result Diagrams: 06/08/17 16:36 Recent Labs: Laboratory Last Values WBC 6.0 Th/cmm (4.8-10.8) D 06/08/17 16:36 RBC 4.11 Mil/cmm (4.30-5.70) L 06/08/17 16:36 Hgb 10.9 gm/dL (12-16) L 06/08/17 16:36 Hct 33.5 % (41.0-60) L 06/08/17 16:36 MCV 81.4 fl (80-99) 06/08/17 16:36 MCH 26.6 pg (26.0-30.0) 06/08/17 16:36 MCHC Differential 32.6 pg (28.0-36.0) 06/08/17 16:36 RDW 14.7 % (11.5-20.0) 06/08/17 16:36 Plt Count 311 Th/cmm (150-400) D 06/08/17 16:36 MPV 7.7 fl 06/08/17 16:36 Neutrophils % 69.4 % (40.0-80.0) 06/08/17 16:36 Lymphocytes % 19.1 % (20.0-50.0) L 06/08/17 16:36 Monocytes % 9.6 % (2.0-10.0) 06/08/17 16:36 Eosinophils % 1.1 % (0.0-5.0) 06/08/17 16:36 Basophils % 0.8 % (0.0-2.0) 06/08/17 16:36 POC Glucose 87 MG/DL (70 - 105) 06/14/17 05:46 C-Reactive Protein 4.5 mg/dL (0.0-0.9) H 06/08/17 16:36 - Physical Exam Vitals and I&O: Vital Signs Temp 98.2 F 06/13/17 20:00 Pulse 95 06/14/17 08:24 Resp 20 06/13/17 20:00 BP 104/65 06/14/17 08:24 Pulse Ox 98 06/13/17 20:00 Intake & Output 06/13/17 06/14/17 06/14/17 18:59 06:59 18:59 Intake Total 1300 Balance 1300 Intake: Oral 0 Other 1300 Other: Stool Characteristics Soft Active Medications: Current Medications Acetaminophen (Tylenol 650mg/20.3ml Suspension) 650 mg PO Q6H PRN PRN Reason: Fever > 101 Stop: 08/06/17 23:03 Last Admin: 06/13/17 09:02 Dose: 650 mg Aripiprazole (Abilify) 7.5 mg GT DAILY [facility] PRN Reason: Protocol Stop: 08/09/17 13:01 Last Admin: 06/14/17 08:35 Dose: 7.5 mg Donepezil HCl (Aricept) 5 mg PO HS [facility] Stop: 08/12/17 20:59 Last Admin: 06/13/17 20:46 Dose: 5 mg Insulin Aspart (Novolog Insulin Sliding Scale) 0 units SUBQ ACHS [facility] PRN Reason: Protocol Stop: 08/05/17 16:29 Last Admin: 06/14/17 06:40 Dose: Not Given Lorazepam (Ativan) 0.5 mg GT Q6HR PRN; Protocol PRN Reason: Increased agitation Stop: 08/05/17 03:50 Last Admin: 06/14/17 08:36 Dose: 0.5 mg Losartan Potassium (Cozaar) 100 mg GT DAILY [facility] Stop: 08/05/17 08:59 Last Admin: 06/14/17 08:24 Dose: Not Given Metoprolol Tartrate (Lopressor) 50 mg GT Q12HR [facility] Stop: 08/05/17 08:59 Last Admin: 06/14/17 08:24 Dose: Not Given Mupirocin (Bactroban Oint) 1 appl NS BID [facility] Stop: 08/05/17 08:59 Last Admin: 06/14/17 08:36 Dose: 1 appl Sodium Chloride (Nacl Tab) 1 gm GT BID [facility] Stop: 08/05/17 08:59 Last Admin: 06/14/17 08:35 Dose: 1 gm Tramadol HCl (Ultram) 50 mg GT Q4HR PRN PRN Reason: Pain (Moderate) Stop: 08/04/17 22:11 Last Admin: 06/12/17 21:44 Dose: 50 mg General: Alert HEENT: Atraumatic Neck: Supple Cardiovascular: Regular rate Abdomen: Bowel sounds, Soft, Other (non tender, no guard, G tube site c/d/i) - Procedures Procedures: Procedures Procedure Code Date EXCISION OF DUODENUM, ENDO, DIAGN [id number] 05/28/17 INSERTION OF FEEDING DEVICE INTO STOMACH, PERC APPROACH [id number] 05/28/17 Assessment/Plan - Problem List Patient Problems: All Active Problems weakness and dizziness resolved. (Acute) - Assessment Assessment: # G tube site pain with feeding # Alzheimers dementia UGI series confirmed that G tube is within the stomach lumen. Pt was fed last night and this morning without issue. Plan: - cont feeds as ordered - No need for EGD given pt's pain has resolved - flush G tube with 100cc water every 6 hours - hold feeds for residual > 150cc GI will see as needed, please call with questions
--- NOTE | 2017-06-14 23:35 | Progress Notes ---
DATE: 06/14/2017 Case was discussed with staff of the patient and reviewed records. The patient continues to be acting out with episodes of yelling and screaming. Continues to have poor insight. Continues to be unable to carry on a conversation or make safe plan for self-care, unpredictable, impulsive, needing redirection. He was seen by Dr. Coats today and it is reported that his feeding last night and this morning was okay without pain and no side effects with the medication, no sedation, no nausea, and no extrapyramidal symptoms. Tolerated the increase in Abilify to 7.5 mg at bedtime. We will continue outpatient group therapy, milieu therapy, and adjust medications as needed. [facility]# [id number]
[2017-06-15] MEDS: INSULIN ASPART SLIDING SCALE 100 UNITS/ML UNIT SUBQ SCH ×4 (06:35→22:14)
--- NOTE | 2017-06-15 20:06 | Progress Notes ---
DATE: 06/15/2017 Case was discussed with staff of patient, reviewed records. The patient continues to be labile, continues to have episodes of screaming, irritability, and continues to be at times un-redirectable. Very poor insight, easily agitated, confused, demented need help with his ADLs. He has been compliant with the medication with no side effects, no sedation, no nausea, no extrapyramidal symptoms. I initiated Aricept on him and we will continue to work with the patient in group therapy, milieu therapy, and adjust medications as needed. JOB# [id number]
[2017-06-16] MEDS: INSULIN ASPART SLIDING SCALE 100 UNITS/ML UNIT SUBQ SCH ×4 (06:56→20:52)
--- NOTE | 2017-06-16 21:35 | Progress Notes ---
DATE: 06/16/2017 Case was discussed with staff of the patient, reviewed records. The patient continues to have episodes of being combative, continues to be easily agitated. Continues to have poor insight, unable to make safe plan for self-care and easily agitated. I will be increasing his Abilify to 10 mg a day and so far no side effects, no sedation, no nausea, no extrapyramidal symptoms. I also initiated him on Aricept 5 mg at bedtime 2 days ago. We will continue outpatient group therapy, milieu therapy, and adjust medications as needed. JOB# [id number]
[2017-06-17] MEDS: INSULIN ASPART SLIDING SCALE 100 UNITS/ML UNIT SUBQ SCH ×4 (06:52→20:49)
--- NOTE | 2017-06-17 21:50 | Progress Notes ---
DATE: 06/17/2017 Case was discussed with staff of the patient, reviewed records. The patient continues to be unpredictable, impulsive, delusional, believes he is at home with his . He continues to have poor insight, continues to be unable to make safe plan for self-care, easily agitated. I did increase his Abilify dose yesterday with no side effects, no sedation, no nausea, and no extrapyramidal symptoms. It is too early to evaluate the response to the current medication. We will continue to work with the patient in group therapy, milieu therapy, and adjust medication as needed. JOB# [id number]
[2017-06-18] MEDS: INSULIN ASPART SLIDING SCALE 100 UNITS/ML UNIT SUBQ SCH ×4 (07:01→21:53)
--- NOTE | 2017-06-18 19:31 | Progress Notes ---
DATE: 06/18/2017 Case was discussed with staff of the patient. He continues to be confused, yelling and screaming, acting inappropriately. Continues to have poor insight. Continues to be unpredictable, impulsive, and needing redirection. I did increase his Abilify dose yesterday, so it is too early to make further adjustments. No side effects with the medication, no sedation, no nausea. Unable to carry on a reasonable conversation, delusional, confused, and we will continue to work with the patient in group therapy, milieu therapy, and adjust medications as needed. JOB# [id number]
[2017-06-19] MEDS: INSULIN ASPART SLIDING SCALE 100 UNITS/ML UNIT SUBQ SCH ×4 (06:37→22:08)
--- NOTE | 2017-06-19 14:16 | Progress Notes ---
DATE: 06/19/2017 The patient continues to be unpredictable, impulsive, out of control. He continues to need redirection, yelling and screaming, throwing things. He is on Abilify and the dose was increased to 10 mg daily. I will be adding Depakote 125 mg 3 times a day to help improve his impulsive, aggressive behavior and we will continue to work with the patient in group therapy, milieu therapy, adjust medication as needed. JOB# [id number]
[2017-06-20] MEDS: INSULIN ASPART SLIDING SCALE 100 UNITS/ML UNIT SUBQ SCH ×4 (06:30→20:33)
--- NOTE | 2017-06-20 23:09 | Progress Notes ---
DATE: 06/20/2017 Case was discussed with staff of the patient and reviewed records. The patient continues to be unpredictable and impulsive with episodes of acting out. He continues to have poor insight. He continues to be delusional at times. Unable to carry on a conversation or make a safe plan for self-care. I did add Depakote because of aggressive behavior. No side effects, no sedation, no nausea, no extrapyramidal symptoms. He needs help with his ADLs. He is incontinent and we will continue outpatient group therapy, milieu therapy, and adjust medication as needed. JOB# [id number]
[2017-06-21] MEDS: INSULIN ASPART SLIDING SCALE 100 UNITS/ML UNIT SUBQ SCH ×3 (06:53→20:07)
--- NOTE | 2017-06-21 20:28 | Discharge Summary ---
DATE OF DISCHARGE: 06/21/2017 IDENTIFYING INFORMATION: The patient is 61-year-old male. HISTORY OF PRESENT ILLNESS: The patient was transferred from the medical floor. He was delusional, yelling and screaming, unpredictable, confused ____ that he was some kind of unit with disabled people to sell his age, where he is, why he is here, I believe he is 33 years of age, unobtainable history. COURSE IN THE HOSPITAL: The patient was on Abilify and increase the dose over the course of his stay here to 10 mg daily added Depakote 125 mg at bedtime, psychosis, agitation and aggressive behavior and Aricept 5 mg at bedtime. He was continued with insulin, Ativan, losartan, metoprolol, mupirocin, tramadol. The patient developed MRSA was transferred to the medical floor. FINAL DIAGNOSIS: AXIS I: Psychosis, not otherwise specified. MEDICAL DIAGNOSES: Deferred to the medical doctor. The patient will be transferred to the medical floor. We will follow up with the patient there as well as his treating doctor. Expected outcome is stable if the patient complies with treatment. JOB# [id number]
[2017-06-22] MEDS: INSULIN ASPART SLIDING SCALE 100 UNITS/ML UNIT SUBQ SCH ×4 (12:12→22:00)
[2017-06-23] MEDS: INSULIN ASPART SLIDING SCALE 100 UNITS/ML UNIT SUBQ SCH ×4 (06:59→21:20)
--- NOTE | 2017-06-23 12:41 | Progress Notes ---
DATE: SUBJECTIVE: The patient was seen and evaluated. The patient's chart reviewed. This is Dr. Carvajal covering for Dr. Andrews. Overnight, nursing staff reported that the patient continues to be very disorganized and attempting to grab, yelling. Today on [id number] evaluation, irritable, easily agitated, disorganized, limited historian and does not give much information. MENTAL STATUS EXAMINATION: Disorganized, psychotic. ASSESSMENT AND PLAN: The patient is a 61-year-old male, who continues to feel psychologically distraught, who continues to be disorganized. We will continue with primary psychiatrist's treatment plan and goals as Abilify was recently increased to 10 mg a day to target the patient's psychosis, Depakote at 125 q. 8 hours, and mg a day. JOB# [id number]
--- NOTE | 2017-06-24 04:42 | Progress Notes ---
DATE: 06/23/2017 SUBJECTIVE: The patient was seen and evaluated. The patient's chart reviewed. Overnight nursing staff reported the patient continues to be easily disorganized, distraught, needing a lot of redirection. Today on [id number] evaluation, the patient is minimally disengaged and distraught. MENTAL STATUS EXAMINATION: Disorganized. ASSESSMENT AND PLAN: The patient is a 61-year-old male with residual paranoia and disorganized thought process impaired the ability to provide food, penitentiary, clothing outside of semi-structured environment. We will continue with the current medications from primary psychiatrist's treatment plan and goals to continue to target the patient's disorganized thought process. JOB# [id number]
[2017-06-24] MEDS: INSULIN ASPART SLIDING SCALE 100 UNITS/ML UNIT SUBQ SCH ×2 (06:42→21:24)
--- NOTE | 2017-06-24 23:19 | Progress Notes ---
DATE: 06/24/2017 Case was discussed with staff of the patient, reviewed records. The patient continues to be disorganized and easily agitated. The staff also report that he is also being depressed, unable to participate in a meaningful conversation or make safe plan for self-care. I will be adding Remeron to his medication to help with his depression, and so far no side effects with the medication, no sedation or nausea, no extrapyramidal symptoms. We will continue outpatient group therapy, milieu therapy, and adjust medications as needed. JOB# [id number]
[2017-06-25] MEDS: INSULIN ASPART SLIDING SCALE 100 UNITS/ML UNIT SUBQ SCH ×4 (06:31→20:50)
--- NOTE | 2017-06-25 15:55 | Progress Notes ---
DATE: 06/25/2017 Case was discussed with staff of the patient, reviewed records. The staff reported that the patient has been a bit calmer. He was started on Remeron. He continues to be confused, needing redirection, unpredictable, impulsive, and unable to make safe plan for self-care or participate in a meaningful conversation. Some side effects, may be some sedation with the new medication. No extrapyramidal symptoms. Working on discharge plan. We will continue with the patient in group therapy, milieu therapy, and adjust the medication as needed. JOB# [id number]
[2017-06-26] MEDS: INSULIN ASPART SLIDING SCALE 100 UNITS/ML UNIT SUBQ SCH ×4 (06:32→21:38)
--- NOTE | 2017-06-26 20:29 | Progress Notes ---
DATE: 06/26/2017 Case was discussed with staff of the patient, reviewed records. The staff report he is running a mild temperature today. Advised the nurse to call the medical doctor to make sure that he has been taking care of and that is Dr. Gramajo. The patient is less agitated. The patient though continues to have poor insight, continues to be unable to make safe plan for self-care or participate in a meaningful conversation. We are also working on discharge plan. No side effects with the medication, no sedation, no nausea, no extrapyramidal symptoms, and I added Remeron 2 days ago and he is on Abilify 10 mg daily and I added Depakote because of his aggressive behavior 125 mg every 8 hours. I will be ordering the level of the Depakote and has been on it for a few days now and so far I will continue to work with the patient in group therapy, milieu therapy, and adjust the medication as needed. JOB# [id number]
[2017-06-27] MEDS: INSULIN ASPART SLIDING SCALE 100 UNITS/ML UNIT SUBQ SCH ×3 (06:55→17:29)
[2017-06-27 15:33] LABS: % BASOPHILS 0.9 % (0.0-2.0); % EOSINOPHILS 1.1 % (0.0-5.0); % LYMPHOCYTES 13.1 % (20.0-50.0); % MONOCYTES 9.4 % (2.0-10.0); % NEUTROPHILS 75.5 % (40.0-80.0); BASOPHILE ABSOLUTE 0.1 Th/cumm (0-0.2); EOSINOPHILE ABSOLUTE 0.1 Th/cmm (0.1-0.4); HEMOGLOBIN 11.7 gm/dL (12-16); LYMPHOCYTE ABSOLUTE 0.9 Th/cmm (1.5-3.0); MEAN CELL VOLUME 83.5 fl (80-99); MEAN CORPUSCULAR HEMOGLOBIN 27.2 pg (26.0-30.0); MEAN CORPUSCULAR HGB CONC 32.6 pg (28.0-36.0); MEAN PLATELET VOLUME 7.1 fl; MONOCYTE ABSOLUTE 0.6 Th/cmm (0.3-1.0); PLATELET COUNT 355 Th/cmm (150-400); RED BLOOD COUNT 4.31 Mil/cmm (4.30-5.70); RED CELL DISTRIBUTION WIDTH 15.7 % (11.5-20.0); WHITE BLOOD COUNT 6.7 Th/cmm (4.8-10.8)
[2017-06-28] MEDS: INSULIN ASPART SLIDING SCALE 100 UNITS/ML UNIT SUBQ SCH ×2 (06:50→16:41)
[2017-06-28] MEDS: Multivitamin w/ Minerals Tab PO SCH (08:52)
--- NOTE | 2017-06-29 00:58 | Progress Notes ---
DATE: 06/27/2017 PSYCHIATRIC PROGRESS NOTE SUBJECTIVE: Chart reviewed and the patient interviewed. Also, discussed the patient's condition with the staff and reviewed records and labs. This is Dr. Luque covering for Dr. Andrews. The patient seems to be calmer than before and he seems to be less agitated. Also, is interacting slightly better, but still in a confused state. The patient also is less irritable, also easier to redirect him. Otherwise, the patient also is compliant with taking his medication with no side effects of medications. ASSESSMENT: The patient is showing some improvement. TREATMENT PLAN: We will continue to monitor his behavior and his condition closely. Also, continue to work on his placement and discharge plans. JOB# [id number]
[2017-06-29] MEDS: INSULIN ASPART SLIDING SCALE 100 UNITS/ML UNIT SUBQ SCH ×2 (06:31→16:42)
--- NOTE | 2017-06-29 07:40 | Progress Notes ---
DATE: 06/28/2017 PSYCHIATRIC PROGRESS NOTE SUBJECTIVE: Chart reviewed and the patient interviewed. Also discussed the patient's condition with the staff and reviewed records and labs. The patient continued to be in angry mood and is still easily irritable and agitated. The patient also still has episodes of yelling and screaming and uncooperative with the staff. The patient is supposed to be discharged, but it seems that placement has been an issue. Also unable to follow staff instructions. Otherwise, the patient continued to take psychotropic medications including Abilify and Remeron with no side effect. ASSESSMENT: The patient is still agitated and psychotic. TREATMENT PLAN: Continue Remeron, Depakote and Abilify at same dose. Also, continue to work with case finishing machine adjuster in regard to discharge plans and placement issue. JOB# [id number]
[2017-06-29] MEDS: Multivitamin w/ Minerals Tab PO SCH (09:25)
--- NOTE | 2017-06-29 21:49 | Progress Notes ---
DATE: 06/29/2017 SUBJECTIVE: Chart reviewed and the patient interviewed. Also discussed the patient's condition with the staff and reviewed records and labs. The patient is quieter and less agitated. Also is interacting slightly more. The patient is easier to redirect. The patient denies any side effects of medications and no nausea. ASSESSMENT: The patient is less agitated and less psychotic. TREATMENT PLAN: We will continue monitoring behavior and continue adjusting psychotropic medications and continue to follow up. JOB# [id number]
[2017-06-30] MEDS: INSULIN ASPART SLIDING SCALE 100 UNITS/ML UNIT SUBQ SCH ×2 (07:00→17:10)
[2017-06-30] MEDS: Multivitamin w/ Minerals Tab PO SCH (09:24)
[2017-07-01] MEDS: INSULIN ASPART SLIDING SCALE 100 UNITS/ML UNIT SUBQ SCH ×2 (06:38→17:09)
[2017-07-01] MEDS: Multivitamin w/ Minerals Tab PO SCH (08:21)
[2017-07-02] MEDS: INSULIN ASPART SLIDING SCALE 100 UNITS/ML UNIT SUBQ SCH ×2 (07:11→16:12)
--- NOTE | 2017-07-02 07:23 | Progress Notes ---
DATE: 07/01/2017 SUBJECTIVE: The patient is seen today, 07/01/2017. The patient is transferred from the medical floor, delusional, yelling, screaming, unpredictable, and confused. On [id number], the patient remains disoriented. When I asked him why he is here, he states "to see me." The patient does not know where he is and what is going on, currently restless, impulsive and unpredictable. Dr. Luque saw the patient over the weekend, continued to note that the patient remains somewhat agitated and confused, but did appear to be improving. PLAN: We will continue to monitor. Given ongoing symptoms, the patient is not safe for a lower level of care, but there seems to be some improvement. JOB# [id number]
[2017-07-02] MEDS: Multivitamin w/ Minerals Tab PO SCH (09:18)
--- NOTE | 2017-07-02 18:26 | Progress Notes ---
DATE: 07/02/2017 The patient still remains delusional and talking about being in [place]. Again still talking about being in the [place]. He is stating that he is being accused of using [place] equipment, still disoriented. Does not know why he is here, what is going on, highly confused, remains impulsive, unpredictable, still with some yelling and screaming episodes. The patient may be at baseline at this time. CURRENT MEDICATIONS: Reviewed. Currently on low dose Remeron, Aricept. Also, Abilify, Depakote. ASSESSMENT: The patient remains symptomatic, still with evidence of psychosis. PLAN: I will be increasing his Abilify today. JOB# [id number]
--- NOTE | 2017-07-03 04:57 | Progress Notes ---
DATE: SUBJECTIVE: Chart reviewed and the patient interviewed. Also discussed the patient's condition with the staff and reviewed records and labs. The patient is still yelling and screaming. He still has periods of severe agitation, but also has other time where he is quite. He also still has difficulty following any of staff directions and tries to keep him quiet when he is agitated with no success. He also is still confused and disheveled. Otherwise, the patient is compliant with taking his medications through the G tube. No side effects of medications. ASSESSMENT: The patient is still psychotic and agitated. TREATMENT PLAN: Continue to monitor his behavior and his medications closely. Also, continue to work on behavior modification and continue to follow up closely. JOB# [id number]
[2017-07-03] MEDS: INSULIN ASPART SLIDING SCALE 100 UNITS/ML UNIT SUBQ SCH ×2 (06:41→16:46)
[2017-07-03] MEDS: Multivitamin w/ Minerals Tab PO SCH (09:43)
--- NOTE | 2017-07-03 14:13 | Progress Notes ---
DATE: 07/03/2017 The patient remains delusional, still talking of being in [place], still paranoid. Staff noting little improvement, but he has been calmer, more cooperative and fairly pleasant. He does not get agitated or aggressive. He is currently on Abilify, calm and cooperative. He seems to be approaching his baseline. Less agitation noted by staff. MEDICATIONS: Reviewed. ASSESSMENT: The patient seems to be approaching his baseline. No agitation, no aggressive behaviors. We will monitor for further 24 hours. Coordinate care with social work regarding safe discharge. PLAN: Good psychiatric followup and confirmation of placement. JOB# [id number]
[2017-07-04 08:36] LABS: % BASOPHILS 0.3 % (0.0-2.0); % LYMPHOCYTES 28.5 % (20.0-50.0); % MONOCYTES 7.7 % (2.0-10.0); % NEUTROPHILS 61.5 % (40.0-80.0); EOSINOPHILE ABSOLUTE 0.1 Th/cmm (0.1-0.4); HEMOGLOBIN 12.4 gm/dL (12-16); LYMPHOCYTE ABSOLUTE 1.7 Th/cmm (1.5-3.0); MEAN CELL VOLUME 82.8 fl (80-99); MEAN CORPUSCULAR HEMOGLOBIN 27.1 pg (26.0-30.0); MEAN CORPUSCULAR HGB CONC 32.8 pg (28.0-36.0); MEAN PLATELET VOLUME 8.2 fl; MONOCYTE ABSOLUTE 0.5 Th/cmm (0.3-1.0); NEUTROPHILE ABSOLUTE 3.7 Th/cmm (1.8-8.0); PLATELET COUNT 376 Th/cmm (150-400); RED BLOOD COUNT 4.59 Mil/cmm (4.30-5.70); RED CELL DISTRIBUTION WIDTH 16.2 % (11.5-20.0)
[2017-07-04] MEDS: Multivitamin w/ Minerals Tab PO SCH (10:08)
[2017-07-05] MEDS: INSULIN ASPART SLIDING SCALE 100 UNITS/ML UNIT SUBQ SCH ×2 (06:41→16:15)
[2017-07-05] MEDS: Multivitamin w/ Minerals Tab PO SCH (09:06)
--- NOTE | 2017-07-05 10:47 | Progress Notes ---
DATE: 07/04/2017 SUBJECTIVE: The patient remains delusional, still paranoid, highly anxious, still with some episodes where he is claiming that he is involved with [place]. More cooperative on exam, likely approaching his baseline, less agitation. MEDICATIONS: Reviewed. ASSESSMENT: The patient likely approaching baseline. PLAN: We will attempt to coordinate care and confirm placement. JOB# [id number]
--- NOTE | 2017-07-06 00:12 | Progress Notes ---
DATE: 07/05/2017 The patient remains delusional, paranoid, still talking about the [place], highly restless, unable to verbalize a plan for self-care. He is no longer combative or agitated, but is disoriented, has no idea what is going on, requiring a lot of prompting and redirection. MEDICATIONS: Noted. ASSESSMENT: The patient remains symptomatic, gravely disabled, unable to attend to his basic needs. We are trying to help him with placement while we stabilize him further. [facility]# [id number]
[2017-07-06] MEDS: INSULIN ASPART SLIDING SCALE 100 UNITS/ML UNIT SUBQ SCH ×2 (06:45→17:37)
[2017-07-06] MEDS: Multivitamin w/ Minerals Tab PO SCH (09:34)
[2017-07-06 16:07] LABS: ANION GAP 9.4 (7.0-16.0); BUN - UREA NITROGEN 18 mg/dL (7-25); CALCIUM SERUM 9.2 mg/dL (8.6-10.3); CARBON DIOXIDE 28.8 mEq/L (21.0-31.0); CHLORIDE 101 mEq/L (98-107); CREATININE - SERUM 0.8 mg/dL (0.7-1.3); GFR AFRICAN-AMERICAN > 60.0 ml/min (>90); GFR NON AFRICAN-AMERICAN > 60.0 ml/min; GLUCOSE 108 mg/dL (70-105); POTASSIUM SERUM 4.2 mEq/L (3.5-5.1); SODIUM SERUM 135 mEq/L (136-145)
--- NOTE | 2017-07-06 20:03 | Progress Notes ---
DATE: 07/06/2017 SUBJECTIVE: The patient remains delusional, paranoid, rambling, somewhat restless, highly disoriented, confused, gravely disabled, cannot take care of his basic needs, cannot verbalize a succinct, plan for self-care. MEDICATIONS: Reviewed. ASSESSMENT: The patient remains symptomatic, gravely disabled. We are trying to help him with placement, but he can take care of himself. PLAN: We will continue to monitor given his ongoing symptoms, he is not safe for discharge. [facility]# [id number]
[2017-07-07] MEDS: INSULIN ASPART SLIDING SCALE 100 UNITS/ML UNIT SUBQ SCH ×2 (06:32→16:02)
--- NOTE | 2017-07-07 08:09 | Progress Notes ---
DATE: SUBJECTIVE: The patient seen, chart reviewed, discussed with staff. The patient is still rambling and nonsensical, confused, disoriented. Sleeping fairly well with channel development manager awakenings, still requiring a lot of prompting, redirection. He is gravely disabled, unable to care for his basic needs, unable to fend for himself, difficult for him to verbalize or succinct plan for self-care. MEDICATIONS: Reviewed. ASSESSMENT: The patient remains symptomatic, gravely disabled, unable to care for himself, still disoriented. PLAN: We will continue to monitor recent dose adjustments of medications were made. We will monitor and follow up, coordinate care with social work regarding safe discharge plan and good psychiatric followup. [facility]# [id number]
[2017-07-07] MEDS: Multivitamin w/ Minerals Tab PO SCH (09:27)
[2017-07-08] MEDS: INSULIN ASPART SLIDING SCALE 100 UNITS/ML UNIT SUBQ SCH (06:31)
[2017-07-08] MEDS: Multivitamin w/ Minerals Tab PO SCH (08:23)
[2017-07-09] MEDS: INSULIN ASPART SLIDING SCALE 100 UNITS/ML UNIT SUBQ SCH ×2 (06:47→08:42)
--- NOTE | 2017-07-09 07:52 | Progress Notes ---
DATE: 07/08/2017 SUBJECTIVE: The patient is currently in the hospital, disoriented, disorganized, nonsensical on exam. In a Gayatri chair, making statements that he needs help, he cannot breathe, staff goes to help him, his breathing okay and then starts all over again, ruminative, yelling, disruptive in a Gayatri chair, restless. The patient is gravely disabled, cannot care for his basic needs. We are trying to help him with placement. ASSESSMENT: The patient remains symptomatic, not safe for discharge. Medications reviewed. ASSESSMENT: The patient remains psychotic, gravely disabled, disoriented, cannot care for basic needs. PLAN: We will continue to monitor given ongoing symptoms. The patient is not safe for discharge. JOB# [id number]
[2017-07-09] MEDS: Multivitamin w/ Minerals Tab PO SCH (08:44)
--- NOTE | 2017-07-10 02:02 | Progress Notes ---
DATE: 07/09/2017 The patient is currently in the hospital, disoriented, disorganized, nonsensical on exam, sleeping, but arousable, gravely disabled, no place to go. MEDICATIONS: Noted. ASSESSMENT: The patient remains symptomatic, gravely disabled. He needs help with placements. PLAN: We will continue to monitor and follow up. Coordinate care with manager social services. JOB# [id number]
[2017-07-10] MEDS: INSULIN ASPART SLIDING SCALE 100 UNITS/ML UNIT SUBQ SCH ×2 (06:34→17:41)
[2017-07-10] MEDS: Multivitamin w/ Minerals Tab PO SCH (09:52)
--- NOTE | 2017-07-10 12:23 | Progress Notes ---
DATE: 07/10/2017 The patient is currently in the hospital under the care of Dr. Andrews, gravely disabled, mourning, nonsensical, disorganized, unable to verbalize a plan for self-care. MEDICATIONS: Noted. ASSESSMENT: The patient remains symptomatic, gravely disabled, cannot take care of himself. PLAN: We will continue to monitor and follow up. Given his ongoing symptoms, he is not safe for discharge. We are trying to help him with placement. [facility]# [id number]
[2017-07-11] MEDS: INSULIN ASPART SLIDING SCALE 100 UNITS/ML UNIT SUBQ SCH ×2 (06:49→16:01)
[2017-07-11] MEDS: Multivitamin w/ Minerals Tab PO SCH (09:00)
--- NOTE | 2017-07-11 20:43 | Progress Notes ---
DATE: 07/11/2017 SUBJECTIVE: The patient is currently in the hospital, gravely disabled, still moaning nonsensical, disorganized, confused, disoriented; however, no agitation, no escalation of behaviors. MEDICATIONS: Noted. ASSESSMENT: The patient remains symptomatic, cannot take care of himself. We are trying to help him with you. JOB# [id number]
[2017-07-12] MEDS: Multivitamin w/ Minerals Tab PO SCH (09:21)
[2017-07-12] MEDS: INSULIN ASPART SLIDING SCALE 100 UNITS/ML UNIT SUBQ SCH (16:12)
--- NOTE | 2017-07-13 02:45 | Progress Notes ---
DATE: SUBJECTIVE: The patient seen, chart reviewed, discussed with staff. The patient remains isolative, paranoid, still talking about the Russians, still yelling, screaming, gets agitated, roommate had to leave the room because he was so paranoid and yelling and screaming. He remains very disoriented, confused, yelling out, still with a G-tube, still gravely disabled, unable to care for his basic needs. ASSESSMENT: The patient remains symptomatic, not safe for a lower level of care, still unruly, agitated and paranoid. PLAN: We will continue to monitor. We will attempt to get a Depakote level on the patient, and the patient is not safe for a lower level of care. JOB# [id number]
[2017-07-13] MEDS: INSULIN ASPART SLIDING SCALE 100 UNITS/ML UNIT SUBQ SCH ×2 (06:29→17:11)
[2017-07-13 07:17] LABS: ANION GAP 4.5 (7.0-16.0); BUN - UREA NITROGEN 15 mg/dL (7-25); CALCIUM SERUM 9.4 mg/dL (8.6-10.3); CARBON DIOXIDE 27.1 mEq/L (21.0-31.0); CREATININE - SERUM 0.6 mg/dL (0.7-1.3); GFR AFRICAN-AMERICAN > 60.0 ml/min (>90); GFR NON AFRICAN-AMERICAN > 60.0 ml/min; GLUCOSE 104 mg/dL (70-105); POTASSIUM SERUM 3.6 mEq/L (3.5-5.1); SODIUM SERUM 134 mEq/L (136-145)
[2017-07-13] MEDS: Multivitamin w/ Minerals Tab PO SCH (09:30)
[2017-07-13 09:31] LABS: CHLORIDE 105 mEq/L (98-107)
[2017-07-14] MEDS: INSULIN ASPART SLIDING SCALE 100 UNITS/ML UNIT SUBQ SCH ×2 (07:15→16:30)
[2017-07-14] MEDS: Multivitamin w/ Minerals Tab PO SCH (09:54)
--- NOTE | 2017-07-14 21:14 | Progress Notes ---
DATE: SUBJECTIVE: The patient seen, chart reviewed, and discussed with staff. The patient continues to be heard loudly throughout the unit, ruminating that people were trying to hurt him. He continues to be extremely paranoid, incoherent and very disorganized. He has never been compliant with his medications. PLAN: The patient continues to be gravely disabled, unable to make a safer realistic discharge plan or take care of himself outside of hospital. It was felt that he will require continued inpatient care for stabilization and treatment. We will monitor the patient on daily basis for response to medications and titrate medications as needed. [facility]# [id number]
--- NOTE | 2017-07-14 21:37 | Progress Notes ---
DATE: SUBJECTIVE: The patient was seen, chart reviewed and discussed with staff. The patient continues to be very paranoid, labile and affect, continues to be heard yelling and screaming on a continuous basis. PLAN: The patient continues to be gravely disabled, unable to make a safer realistic discharge so that he will require inpatient care center treatment. We will monitor patient on a daily basis for response to medications and titrate medication as needed. [facility]# [id number]
[2017-07-15] MEDS: INSULIN ASPART SLIDING SCALE 100 UNITS/ML UNIT SUBQ SCH ×2 (06:57→17:06)
[2017-07-15] MEDS: Multivitamin w/ Minerals Tab PO SCH (08:57)
--- NOTE | 2017-07-16 04:43 | Progress Notes ---
DATE: 07/15/2017 Case was discussed with staff of the patient, reviewed records. The patient continues to be combative, yelling and screaming. He sleeps well. He eats well. He is compliant with the medication with no side effects, no sedation, no nausea, no extrapyramidal symptoms. Dr. Lee increased his Abilify on the 07/12/2017 to 20 mg a day. He is on Depakote 125 mg every 4 hours and he is on Remeron 7.5 mg at bedtime. His Depakote level was low at 24. I will be increasing his Depakote dose to 250 three times a day to help improve his agitated, combative behavior and no side effects with the medication, no sedation, no nausea, no extrapyramidal symptoms. We will continue outpatient group therapy, milieu therapy, adjust medications. JOB# [id number]
[2017-07-16] MEDS: INSULIN ASPART SLIDING SCALE 100 UNITS/ML UNIT SUBQ SCH (06:33)
[2017-07-16] MEDS: Multivitamin w/ Minerals Tab PO SCH (09:42)
--- NOTE | 2017-07-16 23:21 | Progress Notes ---
DATE: 07/16/2017 Case was discussed with staff of the patient, reviewed records. The patient started increasing Depakote with no side effects because of his yelling and screaming. He seems to be showing some progress. He is more lucid now. He can carry on a conversation; however, he does not know the date. He does not know where he is. He is still unpredictable, impulsive, needing care. Apparently, they are trying to place him and they have been having hard time placing him because nobody will take him as explained to me that because of his insurance mainly still trying to work on that. No side effects with the medication, no sedation, no nausea, no extrapyramidal symptoms. His blood sugar high this morning to 124 and ____ is taking care of him and no side effects with the medication, no sedation, no nausea, no extrapyramidal symptoms. We will continue patient is group therapy, milieu therapy, adjust medications. JOB# [id number]
[2017-07-17] MEDS: INSULIN ASPART SLIDING SCALE 100 UNITS/ML UNIT SUBQ SCH (06:36)
[2017-07-17] MEDS: Multivitamin w/ Minerals Tab PO SCH (08:36)
--- NOTE | 2017-07-17 12:53 | Progress Notes ---
DATE: 07/17/[address] Andrews. The patient seems to be tolerant of Depakote seems calmer, more lucid, more able to carry on a conversation and make his needs met. Still with some yelling and screaming episodes, but less, still believes the Russians may be after him, but noting that he is not having these thoughts often. He seems to be approaching his baseline. He is sleeping well, eating well. Staff noting that he does seem to be more engaged and redirectable and there are thoughts that he may be able to tolerate physical therapy to regain some strength back. Given that he is doing better. Medications reviewed. Depakote level was noted. ASSESSMENT: The patient engaged awake, alert, still disorientation noted, still with mild paranoia. PLAN: We will monitor and follow up. Continue to adjust medications. The patient would likely do well with continuation of physical therapy. JOB# [id number]
[2017-07-18] MEDS: INSULIN ASPART SLIDING SCALE 100 UNITS/ML UNIT SUBQ SCH ×2 (06:34→16:29)
[2017-07-18] MEDS: Multivitamin w/ Minerals Tab PO SCH (09:30)
--- NOTE | 2017-07-19 01:36 | Progress Notes ---
DATE: 07/18/2017 Case was discussed with staff of the patient. The patient more or less has a placement issue. Apparently, his family has not been agreeing to any placement and [place] where no place would take him. Also, the family has been very picky. The staff have to report this to Adult Protective Services as apparently they believe that maybe they are taking advantage of the money and they do not want him to have to pay to any SNF facility. The patient can live in a board and care or live on his own. He needs treatment. He needs help. He needs supervision because of his inability to take care of himself. He is so far compliant with the medication with no side effects. He still has episodes of crying and yelling and screaming, but it is not as much as it was in the past few days and so far no side effects to the medication, no sedation, no nausea, no extrapyramidal symptoms. I did increase his Depakote 2 days ago to 250 mg 3 times a day and will be checking Depakote level again, as it was low and we will continue to work with the patient in group therapy, milieu therapy, and adjust the medication as needed. JOB# [id number]
[2017-07-19] MEDS: INSULIN ASPART SLIDING SCALE 100 UNITS/ML UNIT SUBQ SCH (06:57)
[2017-07-19] MEDS: Multivitamin w/ Minerals Tab PO SCH (09:44)
--- NOTE | 2017-07-19 23:21 | Progress Notes ---
DATE: 07/19/2017 SUBJECTIVE: Case was discussed with staff of the patient, reviewed records. The patient continues to same. Continues to have episodes of agitation, irritability, continues to have poor insight. Unable to make safe plan for self-care. I will be rechecking his Depakote level. No side effects with the medication, no sedation, no nausea, no extrapyramidal symptoms. We are still working on placement and we do have a problem with placement because the family has not been agreeable to many placement. According to the staff, the patient can take care of himself, so we can really discharge and because of his agitated behavior, demented, confused behavior can discharge him to the . We will continue outpatient group therapy, milieu therapy, and adjust medication as needed. JOB# [id number]
[2017-07-20] MEDS: INSULIN ASPART SLIDING SCALE 100 UNITS/ML UNIT SUBQ SCH ×2 (06:49→16:25)
[2017-07-20] MEDS: Multivitamin w/ Minerals Tab PO SCH (09:30)
--- NOTE | 2017-07-20 16:09 | Progress Notes ---
DATE: 07/20/2017 The patient was seen and evaluated. The patient's chart reviewed. This is Dr. Carvajal covering for Dr. Andrews. SUBJECTIVE: Overnight nursing report, the patient continues to be disorganized and intermittently yelling and screaming. Today on ncla-bm-[id number] evaluation, the patient presented in a very disorganized manner with extremely poor insight and episodes of agitation is noted during the interview with minimal coherent conversation and distraught. MENTAL STATUS EXAMINATION: Disorganized. He continues to be stable in regards to his current baseline. Recently still needing a lot of redirection. ASSESSMENT AND PLAN: The patient continues to be disorganized. Currently awaiting placement. We will continue with current medication treatment regimen which includes Abilify 20 mg a day, Depakote 250 three times a day with mirtazapine 7.5, which he endorsed no side effects and good tolerability. [facility]# [id number]
[2017-07-21] MEDS: INSULIN ASPART SLIDING SCALE 100 UNITS/ML UNIT SUBQ SCH ×2 (06:49→16:40)
[2017-07-21] MEDS: Multivitamin w/ Minerals Tab PO SCH (08:49)
--- NOTE | 2017-07-21 17:11 | Progress Notes ---
DATE: The patient was seen and evaluated. The patient's chart reviewed. Overnight nursing staff reported the patient continues to be still intermittently screaming and yelling. To the ngsr-bq-ffzr evaluation, the patient currently needs lot of redirection to maintain a linear conversation. He presents very disorganized. MENTAL STATUS EXAMINATION: Disorganized. He ____ simple redirection. ASSESSMENT AND PLAN: The patient is a 61-year-old male with his persistent disorganized thought process that impairs his ability to provide food, mcfp outside of his structured environment. We will continue with primary psychiatrist's treatment plan and goals, which includes Abilify 20 mg and Depakote 750 a day with mirtazapine 7.5. [facility]# [id number]
[2017-07-22] MEDS: Multivitamin w/ Minerals Tab PO SCH (09:18)
[2017-07-22] MEDS: INSULIN ASPART SLIDING SCALE 100 UNITS/ML UNIT SUBQ SCH (16:37)
--- NOTE | 2017-07-23 00:01 | Progress Notes ---
DATE: 07/22/2017 SUBJECTIVE: Case was discussed with staff of the patient, reviewed records. The patient continues to be unpredictable, impulsive. Continues to have episodes of yelling and screaming. Actually, he was yelling when I was in the nurses' station. I did increase his Depakote dose on 07/15/2017. He is currently on Abilify 20 mg a day with no side effects. When I tried to interview him, he did not have any answer for me. Continues to be unpredictable and impulsive. I will be rechecking his Depakote level again and so far no side effects with the medication, no sedation, no nausea, no extrapyramidal symptoms. Apparently, also there have been a problem with placing of this patient as apparently his family has not been agreeable to a lot of places and also with the same thing we have problem with the insurance, does not approve at some places, so whatever the family wants him to go is not approved by the insurance and the staff is working on this and we will continue to work with the patient in group therapy, milieu therapy, and adjust medication as needed. I will be rechecking his Depakote level at this point. JOB# [id number]
[2017-07-23] MEDS: INSULIN ASPART SLIDING SCALE 100 UNITS/ML UNIT SUBQ SCH ×2 (07:50→16:33)
[2017-07-23] MEDS: Multivitamin w/ Minerals Tab PO SCH (09:04)
--- NOTE | 2017-07-23 22:22 | Progress Notes ---
DATE: 07/23/2017 Case was discussed with staff and reviewed records. The patient continues to have episodes of agitation and irritability, but in general, he is doing better. I did check his Depakote level yesterday, it was 48.4 which is not much different from, we will increase ____, if the patient is taking his medications. Discussed plans and sensitivity to make sure the patient is compliant with medications as needed. The reason why he keeps yelling and screaming. He may not be swallowing his medication and so far still also working on placement for this patient. I only discussed the issue about having hard time placing this patient and we will continue to work with the patient in group therapy and milieu therapy and adjust medications as needed. JOB# [id number]
--- NOTE | 2017-07-24 13:10 | History & Physical ---
ADMIT DATE: 07/24/2017 HISTORY OF PRESENT ILLNESS: This patient has been transferred from the [facility] Unit on 07/23/2017 with complaints of multiple circular rash more prominent in between the buttocks, erythematic, pleuritic, and tender to touch and also the rash and redness noted in front in the scrotal area and there is also some erythematous rash noted under the skin and in the dobson spot. So, the patient has been transferred from the [facility] Unit for the IV antibiotics and the treatment of the rash and the wound care and Dr. Lester Gramajo has been consulted for the ID and we transferred the patient from [facility] to the med/surg on 07/23/2017 and today, the patient is lethargic and he feels very sleepy, but not in any acute distress and he cannot give any more than the history what I got from the nurses in the unit. PHYSICAL EXAMINATION: VITAL SIGNS: Today, the temperature is 96.7, pulse 68, blood pressure 153/91, oxygen saturation 97 and respirations 19 and pain scale verbally he cannot express and he says there is no pain, but he is very lethargic. HEENT: Head is atraumatic and normocephalic. Eyes: Pupils are reactive to light equally and bilaterally. NECK: Supple. CHEST: Lungs are clear to auscultate. Chest x-ray has been reviewed, which does not show any focal consolidation. HEART: S1, S2 heard. ABDOMEN: Soft. EXTREMITIES: Has no clubbing, no cyanosis, no edema. GENITOURINARY: Urogenital area, the frontal scrotal area is all erythematous and edematous and the skin in the back of the buttocks area bilaterally is extended areas of the erythema and induration and warmth to touch, but there is no exudate or discharge and mostly these are all multiple circular rash like Tiera lesions noted and the rest of the history is all the same from the time of the admission to the [facility] Unit on 06/05/2017. LABORATORY DATA: Today, the labs show WBC of 5.6, hemoglobin 11.9, hematocrit 36.4, and neutrophils of 58% and lymphocytes 26.1 and monocytes 11.6 and the chemistry, sodium 137, potassium 3.8, chloride 99, carbon dioxide 32.7, anion gap 9.1, BUN 20, creatinine 0.9, and glucose 67. ASSESSMENT: At this time is cellulitis of the buttocks and probable Tiera infection superimposed and unstageable decubitus ulcer, seizure disorder, and major depressive illness. PLAN: To admit to the med/surg. Dr. Mesfin Gramajo will be consulted for the ID and to examine and start IV antibiotics and I will get a wound care nurse to take care of the unstageable pressure ulcer between the buttocks and the scrotal edema and the wound will be treated with IV antibiotics and the superficial triple antibiotic cream and the patient needs 1:1 sitter and then diet is regular diet and needs to be fed and Geropsych medications to be continued and psychiatrist Dr. Andrews will continue her treatment here in the med/surg until he is cleared and retransferred to the Geropsych. JOB# [id number]
--- NOTE | 2017-07-31 15:40 | Progress Notes ---
DATE: 07/31/2017 Case discussed with staff of the patient, reviewed records. The patient continues to do more or less the same, continues to have episodes of agitation, irritability and I am not sure that he is going to be even get better, sleeping well, eating well. No side effects of the medication, no sedation, no nausea and no extrapyramidal symptoms and the patient needs follow up with a psychiatrist on discharge. The patient also working on placement has been going on for the past 2 months since he has been here. Thank you very much for allowing me to participate in the care of this most interesting gentleman. JOB# [id number]
== END 2017-07-24 00:05 | DRG 885 ==
LOC: GERO 19:02 → UNDOADMIN 19:02 → GERO 06-20 19:37 → GERO2 07-15 09:58
PROVIDERS: ADMIT Psychiatry & Neurology Psychiatry; ATTEND Psychiatry & Neurology Psychiatry
DX: F29 Unspecified psychosis not due to a substance or known physiological condition (principal); F02.81 Dementia in other diseases classified elsewhere, unspecified severity, with behavioral disturbance; Z93.1 Gastrostomy status; L89.300 Pressure ulcer of unspecified buttock, unstageable; G30.9 Alzheimer's disease, unspecified; E11.9 Type 2 diabetes mellitus without complications; R13.10 Dysphagia, unspecified; L03.317 Cellulitis of buttock; E78.5 Hyperlipidemia, unspecified; B95.62 Methicillin resistant Staphylococcus aureus infection as the cause of diseases classified elsewhere; F41.9 Anxiety disorder, unspecified; N39.0 Urinary tract infection, site not specified; I10 Essential (primary) hypertension; I25.10 Atherosclerotic heart disease of native coronary artery without angina pectoris; I69.30 Unspecified sequelae of cerebral infarction; R10.9 Unspecified abdominal pain; R21 Rash and other nonspecific skin eruption; G40.909 Epilepsy, unspecified, not intractable, without status epilepticus; Z16.24 Resistance to multiple antibiotics; Z79.4 Long term (current) use of insulin
CPT/HCPCS: 36415-UA; 73080-TC-RT; 80048-TC; 80164-TC; 82948-90; 85025-TC; 86141-TC; J1200; J1630; J1815; J2060; X3401; Z7610

== ENCOUNTER 2017-07-24 00:05 | Inpatient (IN) | payer BC ==
[2017-07-24 07:14] LABS: % BASOPHILS 0.8 % (0.0-2.0); % EOSINOPHILS 3.3 % (0.0-5.0); % LYMPHOCYTES 26.1 % (20.0-50.0); % MONOCYTES 11.6 % (2.0-10.0); % NEUTROPHILS 58.2 % (40.0-80.0); EOSINOPHILE ABSOLUTE 0.2 Th/cmm (0.1-0.4); HEMATOCRIT 36.4 % (41.0-60); HEMOGLOBIN 11.9 gm/dL (12-16); LYMPHOCYTE ABSOLUTE 1.5 Th/cmm (1.5-3.0); MEAN CELL VOLUME 82.8 fl (80-99); MEAN CORPUSCULAR HEMOGLOBIN 27.1 pg (26.0-30.0); MEAN CORPUSCULAR HGB CONC 32.7 pg (28.0-36.0); MEAN PLATELET VOLUME 8.2 fl; MONOCYTE ABSOLUTE 0.6 Th/cmm (0.3-1.0); NEUTROPHILE ABSOLUTE 3.3 Th/cmm (1.8-8.0); RED CELL DISTRIBUTION WIDTH 15.9 % (11.5-20.0); WHITE BLOOD COUNT 5.6 Th/cmm (4.8-10.8)
[2017-07-24 07:17] LABS: PLATELET COUNT 271 Th/cmm (150-400)
[2017-07-24 07:26] LABS: ALB/GLOB RATIO 1.1 (1.0-1.8); ALBUMIN 3.3 gm/dL (4.2-5.5); ALKALINE PHOSPHATASE 49 U/L (34-104); ANION GAP 9.1 (7.0-16.0); BILIRUBIN,TOTAL 0.2 mg/dL (0.3-1.0); BUN - UREA NITROGEN 20 mg/dL (7-25); CALCIUM SERUM 9.4 mg/dL (8.6-10.3); CARBON DIOXIDE 32.7 mEq/L (21.0-31.0); CHLORIDE 99 mEq/L (98-107); CREATININE - SERUM 0.9 mg/dL (0.7-1.3); GFR AFRICAN-AMERICAN > 60.0 ml/min (>90); GFR NON AFRICAN-AMERICAN > 60.0 ml/min; GLUCOSE 79 mg/dL (70-105); POTASSIUM SERUM 3.8 mEq/L (3.5-5.1); SGOT 19 U/L (13-39); SGPT/ALT 15 U/L (7-52); SODIUM SERUM 137 mEq/L (136-145); TOTAL PROTEIN,SERUM 6.4 gm/dL (6.0-8.3)
--- NOTE | 2017-07-24 08:30 | Diagnostic Imaging Report ---
CHEST X-RAY: AP view INDICATION: pain, fungal infection COMPARISON: Chest x-ray 05/28/2017 FINDINGS: The patient is rotated, limiting the exam. No focal consolidation identified. Left basal increased lung markings are seen. Heart size is difficult to assess on this exam. Tortuous aorta is noted. Degenerative changes of the spine are noted. IMPRESSION: Limited exam due to positioning and rotation. Increased left basal lung markings favoring atelectatic changes. No focal consolidation is identified. Tortuous aorta.
[2017-07-24] MEDS: Meropenem 1 GM in Sodium Chloride 0.9% 100 ML IV SCH ×2 (14:58→20:24)
--- NOTE | 2017-07-24 22:50 | Progress Notes ---
DATE: 07/24/2017 SUBJECTIVE: The patient was transferred to the medical floor because of high temperature, blood pressure was going down and he has an ulcer in his back that they think is a fungal infection. The patient himself is a very poor historian with episodes of yelling and screaming. He is unpredictable and impulsive. He has been in the hospital for a long period of time. The patient was on Abilify and Remeron that need to be restarted. He is also on Depakote and I would recommend to restart the Abilify, which I restarted as well as mirtazapine. I will hold on the Abilify for now. The patient needs a placement and that has been an issue throughout his stay here and that needs to be addressed by the immigration case worker because when he is medically cleared his family has not been willing for him to go to any places as his insurance will not be paying for other places. Thank you very much for allowing me to participate in his care. JOB# [id number]
[2017-07-25] MEDS: Meropenem 1 GM in Sodium Chloride 0.9% 100 ML IV SCH (04:56)
[2017-07-25] MEDS ORDERED: Non-Formulary Item 1 EA (Losartan Potassium [Cozaar] 100 MG) PO SCH (09:00)
[2017-07-25] MEDS: Multivitamin w/ Minerals Tab PO SCH (10:22)
[2017-07-25] MEDS: cefTRIAXone 1 GM in Sodium Chloride 0.9% 50 ML IV SCH (14:00)
--- NOTE | 2017-07-25 14:17 | General Progress Note ---
Subjective - Review of Systems Service Date: 07/25/17 Subjective: Patient is sleepy, not in distress, feeding well, siter 1:1 present Objective - Results Result Diagrams: 07/24/17 06:10 07/24/17 06:10 Recent Labs: Laboratory Last Values WBC 5.6 Th/cmm (4.8-10.8) 07/24/17 06:10 RBC 4.40 Mil/cmm (4.30-5.70) 07/24/17 06:10 Hgb 11.9 gm/dL (12-16) L 07/24/17 06:10 Hct 36.4 % (41.0-60) L 07/24/17 06:10 MCV 82.8 fl (80-99) 07/24/17 06:10 MCH 27.1 pg (26.0-30.0) 07/24/17 06:10 MCHC Differential 32.7 pg (28.0-36.0) 07/24/17 06:10 RDW 15.9 % (11.5-20.0) 07/24/17 06:10 Plt Count 271 Th/cmm (150-400) D 07/24/17 06:10 MPV 8.2 fl 07/24/17 06:10 Neutrophils % 58.2 % (40.0-80.0) 07/24/17 06:10 Lymphocytes % 26.1 % (20.0-50.0) 07/24/17 06:10 Monocytes % 11.6 % (2.0-10.0) H 07/24/17 06:10 Eosinophils % 3.3 % (0.0-5.0) 07/24/17 06:10 Basophils % 0.8 % (0.0-2.0) 07/24/17 06:10 Sodium 137 mEq/L (136-145) 07/24/17 06:10 Potassium 3.8 mEq/L (3.5-5.1) 07/24/17 06:10 Chloride 99 mEq/L (98-107) 07/24/17 06:10 Carbon Dioxide 32.7 mEq/L (21.0-31.0) H 07/24/17 06:10 Anion Gap 9.1 (7.0-16.0) 07/24/17 06:10 BUN 20 mg/dL (7-25) 07/24/17 06:10 Creatinine 0.9 mg/dL (0.7-1.3) 07/24/17 06:10 Est GFR ( Amer) > 60.0 ml/min (>90) 07/24/17 06:10 Est GFR (Non-Af Amer) > 60.0 ml/min 07/24/17 06:10 BUN/Creatinine Ratio 22.2 07/24/17 06:10 Glucose 79 mg/dL (70-105) 07/24/17 06:10 POC Glucose 105 MG/DL (70 - 105) 07/24/17 11:52 Calcium 9.4 mg/dL (8.6-10.3) 07/24/17 06:10 Total Bilirubin 0.2 mg/dL (0.3-1.0) L 07/24/17 06:10 AST 19 U/L (13-39) 07/24/17 06:10 ALT 15 U/L (7-52) 07/24/17 06:10 Alkaline Phosphatase 49 U/L (34-104) 07/24/17 06:10 Total Protein 6.4 gm/dL (6.0-8.3) 07/24/17 06:10 Albumin 3.3 gm/dL (4.2-5.5) L 07/24/17 06:10 Globulin 3.1 gm/dL 07/24/17 06:10 Albumin/Globulin Ratio 1.1 (1.0-1.8) 07/24/17 06:10 - Physical Exam Vitals and I&O: Vital Signs Temp 98.6 F 07/25/17 04:00 Pulse 75 07/25/17 10:22 Resp 16 07/25/17 08:00 BP 144/95 07/25/17 10:22 Pulse Ox 95 07/25/17 04:00 Intake & Output 07/24/17 07/25/17 07/25/17 18:59 06:59 18:59 Intake Total 900 680 Output Total 3 Balance 897 680 Weight (lbs) 54.885 kg 54.93 kg Intake: Intake, IV Amount 100 200 Meropenem 1 gm In Sodium 100 200 Chloride 0.9% 100 ml @ 100 mls/hr IV Q8H [facility] Rx# :[id number] Oral 800 480 Output: Urine 3 Other: # Voids 3 # Bowel Movements 1 Active Medications: Current Medications Acetaminophen (Tylenol) 650 mg PO Q6HR PRN PRN Reason: Fever > 101 Stop: 09/22/17 12:24 Clotrimazole (Lotrimin 1% Cream) 1 appl TP BID [facility] Stop: 08/21/17 18:44 Last Admin: 07/25/17 10:22 Dose: 1 appl Divalproex Sodium (Depakote Sprinkle) 250 mg PO Q8HR [facility] PRN Reason: Protocol Stop: 09/22/17 15:59 Last Admin: 07/25/17 14:07 Dose: 250 mg Fluconazole (Diflucan) 100 mg PO DAILY [facility] Stop: 09/23/17 08:59 Last Admin: 07/25/17 10:22 Dose: 100 mg Ceftriaxone Sodium 1 gm/ (Sodium Chloride) 50 mls @ 100 mls/hr IV Q24HR [facility] Stop: 09/23/17 12:14 Last Admin: 07/25/17 14:00 Dose: 100 mls/hr Lorazepam (Ativan) 1 mg PO Q6HR PRN; Protocol PRN Reason: Anxiety Stop: 09/22/17 12:24 Last Admin: 07/25/17 03:05 Dose: 1 mg Losartan Potassium (Cozaar) 100 mg PO DAILY [facility] Stop: 09/23/17 08:59 Last Admin: 07/25/17 10:22 Dose: 100 mg Mirtazapine (Remeron) 7.5 mg PO HS [facility] PRN Reason: Protocol Stop: 09/22/17 20:59 Last Admin: 07/24/17 20:23 Dose: 7.5 mg Tramadol HCl (Ultram) 50 mg PO Q4HR PRN PRN Reason: Pain (Moderate) Stop: 09/22/17 12:24 Last Admin: 07/24/17 13:32 Dose: 50 mg General: Oriented x3, No acute distress HEENT: Atraumatic, EOMI Neck: Supple Cardiovascular: Regular rate, Normal S1, Normal S2 Lungs: Clear to auscultation Abdomen: Bowel sounds Extremities: no Clubbing, no Edema (no) Skin: Rash, Significant lesion (bilateral buttocks and scrotum) Psych/Mental Status: Other (no issues) - Procedures Procedures: Procedures Procedure Code Date EXCISION OF DUODENUM, ENDO, DIAGN [id number] 05/28/17 INSERTION OF FEEDING DEVICE INTO STOMACH, PERC APPROACH [id number] 05/28/17 Assessment/Plan - Problem List Patient Problems: All Active Problems Abscess or cellulitis of perineum (Acute) [id number] Tiera infection (Acute) B37.9 - Assessment Assessment: same as problem list - Plan Plan: continue present management. Abs as per ID Psych meds as per Psych Nutritional Asmnt/Malnutr-PDOC - Dietary Evaluation Malnutrition Findings (Please click <Entered> for more info): Nutritional Asmnt/Malnutrition Start: 07/25/17 12: 27 Text: Status: Active Freq: Document 07/25/17 12:27 BRUCE (Rec: 07/25/17 12:32 LCLAN [email or web address]) Nutritional Asmnt/Malnutrition Patient General Information Nutritional Screening High Risk Consult Diagnosis fungal infection Pertinent Medical Hx/Surgical Hx HTN, DM, CAD, CVA/TIA, dyslipidemia, dementia, encephalopathy Subjective Information Consult received for rash/ gungal infection/ cellulitis face/buttocks. Pt seen sleeping in bed at time of visit. Sitter at bedside. Per record PO intake 50% x 2 meals yesterday 07/24. Per nurse notes, GT clamped, pt yelling at times. Current Diet Order/ Nutrition Support Regular Pertinent Medications remeron Pertinent Labs 07/24 Na 137, K 3.8, Cl 99, BUN 20, Cr 0.9, Glucose 79, POC 67-105, ALb 3.3 Nutritional Hx/Data Height 1.7 m Height (Calculated Centimeters) 170.2 Current Weight (lbs) 54.885 kg Weight (Calculated Kilograms) 54.9 Weight (Calculated Grams) 14596.7 [place] Body Weight 148 % [place] Body Weight 82 Body Mass Index (BMI) 18.9 Weight Status Approriate GI Symptoms GI Symptoms None Last BM 07/24 Difficult in: None Skin Integrity/Comment: Erythema and circular rashes to buttocks area and facial area Current %PO Fair (50-74%) Estimated Nutritional Goals BEE in Kcals: Using Current wt Calories/Kcals/Kg 27-32 Kcals Calculated 5007-3811 Protein: Using Current wt Protein g/k-1.2 Protein Calculated 55-66 Fluid: ml 1485-1760ml (1ml/kcal) Nutritional Problem 1. Problem Problem N/A
--- NOTE | 2017-07-26 00:46 | Consultation ---
DATE OF CONSULTATION: 07/24/2017 INFECTIOUS DISEASE CONSULTATION PRIMARY CARE PHYSICIANS: Dr. Levi Gramajo and Dr. Luis. REASON FOR CONSULTATION: Fungal rash. HISTORY OF PRESENT ILLNESS: This is a 61-year-old male who [facility] because of psychosis and developed a rash in the gluteal area, as well as on the face. The patient is unable to provide a meaningful history. Old chart reviewed, pertinent information obtained. PAST MEDICAL HISTORY: Coronary artery disease, hypertension, hyperlipidemia, CVA in the past, Alzheimer's, EGD, and PEG placement. SOCIAL HISTORY: Nonsmoker. ALLERGIES: None. REVIEW OF SYSTEMS: A 14-point review of systems negative except above. On examination, no HIV, hepatitis, fall, trauma, bleeding, or seizures. PHYSICAL EXAMINATION: GENERAL: Elderly male, confused. VITAL SIGNS: Temperature 98.2, pulse 90, respirations 18, and blood pressure 139/90. HEENT: Mild pallor, no icterus or plaque. NECK: Supple. LUNGS: Breath sounds bilateral vesicular. ABDOMEN: Soft. Bowel sounds present. LYMPHATICS: No cervical lymph nodes. SKIN: Fungal rash on the face as well as on the buttocks area. LABORATORY DATA: White count 5000, hemoglobin is 11 grams, and platelets 271. Creatinine is 0.9. Cultures are pending. Chest x-ray is reviewed and shows a tortuous aorta, increased basilar markings suggestive of atelectasis versus infiltrate. OTHER DIAGNOSES: Also, the patient started on 1% Lotrimin and p.o. Diflucan. Also, UA and urine culture ordered. All orders are given through [facility]POE. Rest of the care as ordered in CPOE. Other diagnoses psychosis, divalproex, and psych consult Dr. Andrews. Ativan for anxiety, hypertension, losartan and we will discontinue meropenem. Rest of the care as ordered in the CPOE. Thank you, Dr. Luis, for this consultation. JOB# [id number]
--- NOTE | 2017-07-26 03:39 | Progress Notes ---
DATE: 07/25/2017 SUBJECTIVE: Case was discussed with staff and reviewed records. The patient is currently on the medical floor. I restarted his medication yesterday. The patient in general is calmer when I talked to him today, he was calm. The staff have no problem with him. I did not initiate the Abilify, he seems to be doing well without it. He is on Depakote 250 mg every 8 hours as well as Remeron 7.5 mg at bedtime with no side effects. He denies any current intent to harm self or anybody. The staff does not report any yelling or screaming, so he is dealing with his medical condition as fungal infection to his back and he is on medications for this fluconazole, Diflucan, clotrimazole cream and ceftriaxone. Thank you very much for allowing me to participate in the care of this most interesting gentleman. JOB# [id number]
[2017-07-26] MEDS: Multivitamin w/ Minerals Tab PO SCH (09:33)
[2017-07-26] MEDS: cefTRIAXone 1 GM in Sodium Chloride 0.9% 50 ML IV SCH (13:10)
--- NOTE | 2017-07-26 13:17 | General Progress Note ---
Subjective - Review of Systems Service Date: 07/26/17 Events since last encounter: No distress, didnt sleep last nite, received ativan. Now sleeping, but arousable.did do PT exercises, and had his BF. Subjective: Patient is sleepy, not in distress, feeding well, sitter 1:1 present Objective - Results Result Diagrams: 07/24/17 06:10 07/24/17 06:10 Recent Labs: Laboratory Last Values WBC 5.6 Th/cmm (4.8-10.8) 07/24/17 06:10 RBC 4.40 Mil/cmm (4.30-5.70) 07/24/17 06:10 Hgb 11.9 gm/dL (12-16) L 07/24/17 06:10 Hct 36.4 % (41.0-60) L 07/24/17 06:10 MCV 82.8 fl (80-99) 07/24/17 06:10 MCH 27.1 pg (26.0-30.0) 07/24/17 06:10 MCHC Differential 32.7 pg (28.0-36.0) 07/24/17 06:10 RDW 15.9 % (11.5-20.0) 07/24/17 06:10 Plt Count 271 Th/cmm (150-400) D 07/24/17 06:10 MPV 8.2 fl 07/24/17 06:10 Neutrophils % 58.2 % (40.0-80.0) 07/24/17 06:10 Lymphocytes % 26.1 % (20.0-50.0) 07/24/17 06:10 Monocytes % 11.6 % (2.0-10.0) H 07/24/17 06:10 Eosinophils % 3.3 % (0.0-5.0) 07/24/17 06:10 Basophils % 0.8 % (0.0-2.0) 07/24/17 06:10 Sodium 137 mEq/L (136-145) 07/24/17 06:10 Potassium 3.8 mEq/L (3.5-5.1) 07/24/17 06:10 Chloride 99 mEq/L (98-107) 07/24/17 06:10 Carbon Dioxide 32.7 mEq/L (21.0-31.0) H 07/24/17 06:10 Anion Gap 9.1 (7.0-16.0) 07/24/17 06:10 BUN 20 mg/dL (7-25) 07/24/17 06:10 Creatinine 0.9 mg/dL (0.7-1.3) 07/24/17 06:10 Est GFR ( Amer) > 60.0 ml/min (>90) 07/24/17 06:10 Est GFR (Non-Af Amer) > 60.0 ml/min 07/24/17 06:10 BUN/Creatinine Ratio 22.2 07/24/17 06:10 Glucose 79 mg/dL (70-105) 07/24/17 06:10 POC Glucose 105 MG/DL (70 - 105) 07/24/17 11:52 Calcium 9.4 mg/dL (8.6-10.3) 07/24/17 06:10 Total Bilirubin 0.2 mg/dL (0.3-1.0) L 07/24/17 06:10 AST 19 U/L (13-39) 07/24/17 06:10 ALT 15 U/L (7-52) 07/24/17 06:10 Alkaline Phosphatase 49 U/L (34-104) 07/24/17 06:10 Total Protein 6.4 gm/dL (6.0-8.3) 07/24/17 06:10 Albumin 3.3 gm/dL (4.2-5.5) L 07/24/17 06:10 Globulin 3.1 gm/dL 07/24/17 06:10 Albumin/Globulin Ratio 1.1 (1.0-1.8) 07/24/17 06:10 - Physical Exam Vitals and I&O: Vital Signs Temp 96.9 F 07/26/17 08:00 Pulse 85 07/26/17 09:33 Resp 18 07/26/17 08:15 BP 143/114 07/26/17 09:33 Pulse Ox 97 07/26/17 08:15 Intake & Output 07/25/17 07/26/17 07/26/17 18:59 06:59 18:59 Intake Total 650 360 Balance 650 360 Weight (lbs) 54.885 kg 54.431 kg Intake: Intake, IV Amount 50 cefTRIAXone 1 gm In 50 Sodium Chloride 0.9% 50 ml @ 100 mls/hr IV Q24HR [facility] Rx#:[id number] Oral 600 360 Other: # Voids 3 3 # Bowel Movements 0 Active Medications: Current Medications Acetaminophen (Tylenol) 650 mg PO Q6HR PRN PRN Reason: Fever > 101 Stop: 09/22/17 12:24 Aripiprazole (Abilify) 15 mg PO DAILY [facility] PRN Reason: Protocol Stop: 09/24/17 10:41 Clotrimazole (Lotrimin 1% Cream) 1 appl TP BID [facility] Stop: 08/21/17 18:44 Last Admin: 07/26/17 09:33 Dose: 1 appl Divalproex Sodium (Depakote Sprinkle) 250 mg PO Q8HR [facility] PRN Reason: Protocol Stop: 09/22/17 15:59 Last Admin: 07/26/17 13:11 Dose: 250 mg Fluconazole (Diflucan) 100 mg PO DAILY [facility] Stop: 09/23/17 08:59 Last Admin: 07/26/17 09:33 Dose: 100 mg Ceftriaxone Sodium 1 gm/ (Sodium Chloride) 50 mls @ 100 mls/hr IV Q24HR [facility] Stop: 09/23/17 12:14 Last Admin: 07/26/17 13:10 Dose: 100 mls/hr Lorazepam (Ativan) 1 mg PO Q6HR PRN; Protocol PRN Reason: Anxiety Stop: 09/22/17 12:24 Last Admin: 07/26/17 03:52 Dose: 1 mg Losartan Potassium (Cozaar) 100 mg PO DAILY [facility] Stop: 09/23/17 08:59 Last Admin: 07/26/17 09:33 Dose: 100 mg Mirtazapine (Remeron) 7.5 mg PO HS [facility] PRN Reason: Protocol Stop: 09/22/17 20:59 Last Admin: 07/25/17 20:20 Dose: 7.5 mg Tramadol HCl (Ultram) 50 mg PO Q4HR PRN PRN Reason: Pain (Moderate) Stop: 09/22/17 12:24 Last Admin: 07/26/17 04:38 Dose: 50 mg General: Oriented x3, No acute distress HEENT: Atraumatic, EOMI Neck: Supple Cardiovascular: Regular rate, Normal S1, Normal S2 Lungs: Clear to auscultation Abdomen: Bowel sounds Extremities: no Clubbing, no Edema (no) Skin: Rash, Significant lesion (bilateral buttocks and scrotum) Psych/Mental Status: Other (no issues) - Procedures Procedures: Procedures Procedure Code Date EXCISION OF DUODENUM, ENDO, DIAGN [id number] 05/28/17 INSERTION OF FEEDING DEVICE INTO STOMACH, PERC APPROACH [id number] 05/28/17 Assessment/Plan - Problem List Patient Problems: All Active Problems Abscess or cellulitis of perineum (Acute) [id number] Tiera infection (Acute) B37.9 - Assessment Assessment: same as problem list - Plan Plan: continue present management. Abs as per ID Psych meds as per Psych Nutritional Asmnt/Malnutr-PDOC - Dietary Evaluation Malnutrition Findings (Please click <Entered> for more info): Nutritional Asmnt/Malnutrition Start: 07/25/17 12: 27 Text: Status: Complete Freq: Document 07/25/17 12:27 ANGEL LUIS (Rec: 07/25/17 12:32 [email or web address] Nutritional Asmnt/Malnutrition Patient General Information Nutritional Screening High Risk Consult Diagnosis fungal infection Pertinent Medical Hx/Surgical Hx HTN, DM, CAD, CVA/TIA, dyslipidemia, dementia, encephalopathy Subjective Information Consult received for rash/ gungal infection/ cellulitis face/buttocks. Pt seen sleeping in bed at time of visit. Sitter at bedside. Per record PO intake 50% x 2 meals yesterday 07/24. Per nurse notes, GT clamped, pt yelling at times. Nurse reported pt consumed 70% of lunch today, saved Boost for later, tolerated regular diet. Current Diet Order/ Nutrition Support Regular Pertinent Medications remeron Pertinent Labs 07/24 Na 137, K 3.8, Cl 99, BUN 20, Cr 0.9, Glucose 79, POC 67-105, ALb 3.3 Nutritional Hx/Data Height 1.7 m Height (Calculated Centimeters) 170.2 Current Weight (lbs) 54.885 kg Weight (Calculated Kilograms) 54.9 Weight (Calculated Grams) 51437.7 [place] Body Weight 148 % [place] Body Weight 82 Body Mass Index (BMI) 18.9 Weight Status Approriate GI Symptoms GI Symptoms None Last BM 07/24 Difficult in: None Skin Integrity/Comment: Erythema and circular rashes to buttocks area and facial area Current %PO Fair (50-74%) Estimated Nutritional Goals BEE in Kcals: Using Current wt Calories/Kcals/Kg 27-32 Kcals Calculated 8599-1440 Protein: Using Current wt Protein g/k-1.2 Protein Calculated 55-66 Fluid: ml 1485-1760ml (1ml/kcal) Nutritional Problem 1. Problem Problem N/A Intervention/Recommendation Comments 1. Continue with current diet as ordered. 2. Monitor PO intake, wt, labs and skin integrity 3. F/U as low risk in 7 days, 08/01, PO check 3/ Expected Outcomes/Goals Expected Outcomes/Goals 1. PO intake to meet at least 75% of nutritional needs. 2. Wt stability, skin to remain intact, labs to approach WNL.
[2017-07-26] MEDS ORDERED: Probiotic Screen MC PRN (17:28)
--- NOTE | 2017-07-26 22:36 | Progress Notes ---
DATE: 07/26/2017 Case was discussed with staff of the patient, reviewed records. The patient seems to be yelling this morning, continues to be unpredictable, impulsive, yelling and screaming, needing redirection. He is compliant with the medication with no side effects, no sedation, no nausea, no extrapyramidal symptoms. I will be increasing his Abilify dose to 15 mg a day. He is to be on 20 mg a day until he feels well and we will continue to work with the patient in group therapy, milieu therapy, adjust the medication as needed. JOB# [id number]
[2017-07-27] MEDS: Multivitamin w/ Minerals Tab PO SCH (08:53)
[2017-07-27] MEDS: Lactobacillus Rhamnosus GG 15 Billion CFU CAP.SPRINK PO SCH (08:53)
--- NOTE | 2017-07-27 11:44 | General Progress Note ---
Subjective - Review of Systems Service Date: 07/27/17 Events since last encounter: No new events. Subjective: Patient is sleepy, not in distress, feeding well, sitter 1:1 present Objective - Results Result Diagrams: 07/24/17 06:10 07/24/17 06:10 Recent Labs: Laboratory Last Values WBC 5.6 Th/cmm (4.8-10.8) 07/24/17 06:10 RBC 4.40 Mil/cmm (4.30-5.70) 07/24/17 06:10 Hgb 11.9 gm/dL (12-16) L 07/24/17 06:10 Hct 36.4 % (41.0-60) L 07/24/17 06:10 MCV 82.8 fl (80-99) 07/24/17 06:10 MCH 27.1 pg (26.0-30.0) 07/24/17 06:10 MCHC Differential 32.7 pg (28.0-36.0) 07/24/17 06:10 RDW 15.9 % (11.5-20.0) 07/24/17 06:10 Plt Count 271 Th/cmm (150-400) D 07/24/17 06:10 MPV 8.2 fl 07/24/17 06:10 Neutrophils % 58.2 % (40.0-80.0) 07/24/17 06:10 Lymphocytes % 26.1 % (20.0-50.0) 07/24/17 06:10 Monocytes % 11.6 % (2.0-10.0) H 07/24/17 06:10 Eosinophils % 3.3 % (0.0-5.0) 07/24/17 06:10 Basophils % 0.8 % (0.0-2.0) 07/24/17 06:10 Sodium 137 mEq/L (136-145) 07/24/17 06:10 Potassium 3.8 mEq/L (3.5-5.1) 07/24/17 06:10 Chloride 99 mEq/L (98-107) 07/24/17 06:10 Carbon Dioxide 32.7 mEq/L (21.0-31.0) H 07/24/17 06:10 Anion Gap 9.1 (7.0-16.0) 07/24/17 06:10 BUN 20 mg/dL (7-25) 07/24/17 06:10 Creatinine 0.9 mg/dL (0.7-1.3) 07/24/17 06:10 Est GFR ( Amer) > 60.0 ml/min (>90) 07/24/17 06:10 Est GFR (Non-Af Amer) > 60.0 ml/min 07/24/17 06:10 BUN/Creatinine Ratio 22.2 07/24/17 06:10 Glucose 79 mg/dL (70-105) 07/24/17 06:10 POC Glucose 105 MG/DL (70 - 105) 07/24/17 11:52 Calcium 9.4 mg/dL (8.6-10.3) 07/24/17 06:10 Total Bilirubin 0.2 mg/dL (0.3-1.0) L 07/24/17 06:10 AST 19 U/L (13-39) 07/24/17 06:10 ALT 15 U/L (7-52) 07/24/17 06:10 Alkaline Phosphatase 49 U/L (34-104) 07/24/17 06:10 Total Protein 6.4 gm/dL (6.0-8.3) 07/24/17 06:10 Albumin 3.3 gm/dL (4.2-5.5) L 07/24/17 06:10 Globulin 3.1 gm/dL 07/24/17 06:10 Albumin/Globulin Ratio 1.1 (1.0-1.8) 07/24/17 06:10 - Physical Exam Vitals and I&O: Vital Signs Temp 98.2 F 07/27/17 08:00 Pulse 75 07/27/17 08:52 Resp 20 07/27/17 08:00 BP 130/81 07/27/17 08:52 Pulse Ox 97 07/27/17 08:00 Intake & Output 07/26/17 07/27/17 07/27/17 18:59 06:59 18:59 Intake Total 450 Balance 450 Weight (lbs) 55.021 kg Intake: Intake, IV Amount 50 cefTRIAXone 1 gm In 50 Sodium Chloride 0.9% 50 ml @ 100 mls/hr IV Q24HR [facility] Rx#:[id number] Oral 400 Other: # Voids 3 # Bowel Movements 0 Active Medications: Current Medications Acetaminophen (Tylenol) 650 mg PO Q6HR PRN PRN Reason: Fever > 101 Stop: 09/22/17 12:24 Aripiprazole (Abilify) 15 mg PO DAILY [facility] PRN Reason: Protocol Stop: 09/24/17 10:41 Last Admin: 07/27/17 08:53 Dose: 15 mg Clotrimazole (Lotrimin 1% Cream) 1 appl TP BID [facility] Stop: 08/21/17 18:44 Last Admin: 07/27/17 08:53 Dose: 1 appl Divalproex Sodium (Depakote Sprinkle) 250 mg PO Q8HR [facility] PRN Reason: Protocol Stop: 09/22/17 15:59 Last Admin: 07/27/17 05:33 Dose: 250 mg Fluconazole (Diflucan) 100 mg PO DAILY [facility] Stop: 09/23/17 08:59 Last Admin: 07/27/17 08:52 Dose: 100 mg Ceftriaxone Sodium 1 gm/ (Sodium Chloride) 50 mls @ 100 mls/hr IV Q24HR [facility] Stop: 09/23/17 12:14 Last Infusion: 07/26/17 18:30 Dose: Infused Lactobacillus Rhamnosus (Culturelle 15b) 1 each PO DAILY [facility] Stop: 09/25/17 08:59 Last Admin: 07/27/17 08:53 Dose: 1 each Lorazepam (Ativan) 1 mg PO Q6HR PRN; Protocol PRN Reason: Anxiety Stop: 09/22/17 12:24 Last Admin: 07/26/17 18:41 Dose: 1 mg Losartan Potassium (Cozaar) 100 mg PO DAILY [facility] Stop: 09/23/17 08:59 Last Admin: 07/27/17 08:52 Dose: 100 mg Mirtazapine (Remeron) 7.5 mg PO HS [facility] PRN Reason: Protocol Stop: 09/22/17 20:59 Last Admin: 07/26/17 21:50 Dose: 7.5 mg Miscellaneous (Probiotic Screen) 1 ea [facility] PRN PRN PRN Reason: PROTOCOL Stop: 09/24/17 17:27 Tramadol HCl (Ultram) 50 mg PO Q4HR PRN PRN Reason: Pain (Moderate) Stop: 09/22/17 12:24 Last Admin: 07/26/17 04:38 Dose: 50 mg General: Oriented x3, No acute distress HEENT: Atraumatic, EOMI Neck: Supple Cardiovascular: Regular rate, Normal S1, Normal S2 Lungs: Clear to auscultation Abdomen: Bowel sounds Extremities: no Clubbing, no Edema (no) Skin: Rash, Significant lesion (bilateral buttocks and scrotum) Psych/Mental Status: Other (no issues) - Procedures Procedures: Procedures Procedure Code Date EXCISION OF DUODENUM, ENDO, DIAGN [id number] 05/28/17 INSERTION OF FEEDING DEVICE INTO STOMACH, PERC APPROACH [id number] 05/28/17 Assessment/Plan - Problem List Patient Problems: All Active Problems Abscess or cellulitis of perineum (Acute) [id number] Tiera infection (Acute) B37.9 - Assessment Assessment: same as problem list - Plan Plan: continue present management. Abs as per ID Psych meds as per Psych Nutritional Asmnt/Malnutr-PDOC - Dietary Evaluation Malnutrition Findings (Please click <Entered> for more info): Nutritional Asmnt/Malnutrition Start: 07/25/17 12: 27 Text: Status: Complete Freq: Document 07/25/17 12:27 ANGEL LUIS (Rec: 07/25/17 12:32 [email or web address]) Nutritional Asmnt/Malnutrition Patient General Information Nutritional Screening High Risk Consult Diagnosis fungal infection Pertinent Medical Hx/Surgical Hx HTN, DM, CAD, CVA/TIA, dyslipidemia, dementia, encephalopathy Subjective Information Consult received for rash/ gungal infection/ cellulitis face/buttocks. Pt seen sleeping in bed at time of visit. Sitter at bedside. Per record PO intake 50% x 2 meals yesterday 07/24. Per nurse notes, GT clamped, pt yelling at times. Nurse reported pt consumed 70% of lunch today, saved Boost for later, tolerated regular diet. Current Diet Order/ Nutrition Support Regular Pertinent Medications remeron Pertinent Labs 07/24 Na 137, K 3.8, Cl 99, BUN 20, Cr 0.9, Glucose 79, POC 67-105, ALb 3.3 Nutritional Hx/Data Height 1.7 m Height (Calculated Centimeters) 170.2 Current Weight (lbs) 54.885 kg Weight (Calculated Kilograms) 54.9 Weight (Calculated Grams) 04374.7 [place] Body Weight 148 % [place] Body Weight 82 Body Mass Index (BMI) 18.9 Weight Status Approriate GI Symptoms GI Symptoms None Last BM 07/24 Difficult in: None Skin Integrity/Comment: Erythema and circular rashes to buttocks area and facial area Current %PO Fair (50-74%) Estimated Nutritional Goals BEE in Kcals: Using Current wt Calories/Kcals/Kg 27-32 Kcals Calculated 8780-9692 Protein: Using Current wt Protein g/k-1.2 Protein Calculated 55-66 Fluid: ml 1485-1760ml (1ml/kcal) Nutritional Problem 1. Problem Problem N/A Intervention/Recommendation Comments 1. Continue with current diet as ordered. 2. Monitor PO intake, wt, labs and skin integrity 3. F/U as low risk in 7 days, 08/01, PO check 07/29 Expected Outcomes/Goals Expected Outcomes/Goals 1. PO intake to meet at least 75% of nutritional needs. 2. Wt stability, skin to remain intact, labs to approach WNL.
[2017-07-27] MEDS: cefTRIAXone 1 GM in Sodium Chloride 0.9% 50 ML IV SCH (12:09)
--- NOTE | 2017-07-27 17:12 | Progress Notes ---
DATE: 07/27/2017 Case was discussed with staff of the patient and the staff reports he is a bit calmer. He is not yelling or screaming as he was before. I did increase Abilify dose yesterday and he has been compliant with the medication with no side effects. Also, working on placement for this patient. He is on Remeron 75 mg at bedtime. The staff is working on placement as well and so far no side effects, no sedation, no nausea, and no extrapyramidal symptoms. Thank you very much for allowing me to participate in the care of this most interesting gentleman. JOB# [id number]
[2017-07-28 07:28] LABS: % BASOPHILS 0.1 % (0.0-2.0); % EOSINOPHILS 2.5 % (0.0-5.0); % LYMPHOCYTES 28.6 % (20.0-50.0); % MONOCYTES 5.3 % (2.0-10.0); % NEUTROPHILS 63.5 % (40.0-80.0); EOSINOPHILE ABSOLUTE 0.2 Th/cmm (0.1-0.4); HEMATOCRIT 38.6 % (41.0-60); HEMOGLOBIN 12.7 gm/dL (12-16); MEAN CELL VOLUME 83.8 fl (80-99); MEAN CORPUSCULAR HEMOGLOBIN 27.5 pg (26.0-30.0); MEAN CORPUSCULAR HGB CONC 32.8 pg (28.0-36.0); MEAN PLATELET VOLUME 9.1 fl; MONOCYTE ABSOLUTE 0.4 Th/cmm (0.3-1.0); NEUTROPHILE ABSOLUTE 4.3 Th/cmm (1.8-8.0); RED BLOOD COUNT 4.61 Mil/cmm (4.30-5.70); RED CELL DISTRIBUTION WIDTH 16.2 % (11.5-20.0)
[2017-07-28 07:35] LABS: PLATELET COUNT 365 Th/cmm (150-400); WHITE BLOOD COUNT 6.9 Th/cmm (4.8-10.8)
[2017-07-28] MEDS: Lactobacillus Rhamnosus GG 15 Billion CFU CAP.SPRINK PO SCH (08:52)
[2017-07-28] MEDS: Multivitamin w/ Minerals Tab PO SCH (08:52)
[2017-07-28] MEDS: cefTRIAXone 1 GM in Sodium Chloride 0.9% 50 ML IV SCH (12:30)
--- NOTE | 2017-07-28 13:38 | General Progress Note ---
Subjective - Review of Systems Service Date: 07/28/17 Events since last encounter: No new issues. Patient says 'I want to go home'. His wound care is in progress and IV antibiotics as per ID. Not much of any improvement sees in the buttocks area infection. Subjective: Patient is sleepy, not in distress, feeding well, sitter 1:1 present Objective - Results Result Diagrams: 07/28/17 05:44 07/24/17 06:10 Recent Labs: Laboratory Last Values WBC 6.9 Th/cmm (4.8-10.8) D 07/28/17 05:44 RBC 4.61 Mil/cmm (4.30-5.70) 07/28/17 05:44 Hgb 12.7 gm/dL (12-16) 07/28/17 05:44 Hct 38.6 % (41.0-60) L 07/28/17 05:44 MCV 83.8 fl (80-99) 07/28/17 05:44 MCH 27.5 pg (26.0-30.0) 07/28/17 05:44 MCHC Differential 32.8 pg (28.0-36.0) 07/28/17 05:44 RDW 16.2 % (11.5-20.0) 07/28/17 05:44 Plt Count 365 Th/cmm (150-400) D 07/28/17 05:44 MPV 9.1 fl 07/28/17 05:44 Neutrophils % 63.5 % (40.0-80.0) 07/28/17 05:44 Lymphocytes % 28.6 % (20.0-50.0) 07/28/17 05:44 Monocytes % 5.3 % (2.0-10.0) 07/28/17 05:44 Eosinophils % 2.5 % (0.0-5.0) 07/28/17 05:44 Basophils % 0.1 % (0.0-2.0) 07/28/17 05:44 Sodium 137 mEq/L (136-145) 07/24/17 06:10 Potassium 3.8 mEq/L (3.5-5.1) 07/24/17 06:10 Chloride 99 mEq/L (98-107) 07/24/17 06:10 Carbon Dioxide 32.7 mEq/L (21.0-31.0) H 07/24/17 06:10 Anion Gap 9.1 (7.0-16.0) 07/24/17 06:10 BUN 20 mg/dL (7-25) 07/24/17 06:10 Creatinine 0.9 mg/dL (0.7-1.3) 07/24/17 06:10 Est GFR ( Amer) > 60.0 ml/min (>90) 07/24/17 06:10 Est GFR (Non-Af Amer) > 60.0 ml/min 07/24/17 06:10 BUN/Creatinine Ratio 22.2 07/24/17 06:10 Glucose 79 mg/dL (70-105) 07/24/17 06:10 POC Glucose 105 MG/DL (70 - 105) 07/24/17 11:52 Calcium 9.4 mg/dL (8.6-10.3) 07/24/17 06:10 Total Bilirubin 0.2 mg/dL (0.3-1.0) L 07/24/17 06:10 AST 19 U/L (13-39) 07/24/17 06:10 ALT 15 U/L (7-52) 07/24/17 06:10 Alkaline Phosphatase 49 U/L (34-104) 07/24/17 06:10 Total Protein 6.4 gm/dL (6.0-8.3) 07/24/17 06:10 Albumin 3.3 gm/dL (4.2-5.5) L 07/24/17 06:10 Globulin 3.1 gm/dL 07/24/17 06:10 Albumin/Globulin Ratio 1.1 (1.0-1.8) 07/24/17 06:10 - Physical Exam Vitals and I&O: Vital Signs Temp 97.6 F 07/28/17 08:00 Pulse 97 07/28/17 08:50 Resp 19 07/28/17 08:00 BP 136/87 07/28/17 08:50 Pulse Ox 95 07/28/17 08:00 Intake & Output 07/27/17 07/28/17 07/28/17 18:59 06:59 18:59 Intake Total 400 Balance 400 Weight (lbs) 55.111 kg Intake: Intake, IV Amount 50 cefTRIAXone 1 gm In 50 Sodium Chloride 0.9% 50 ml @ 100 mls/hr IV Q24HR [facility] Rx#:[id number] Oral 350 Other: # Voids 3 # Bowel Movements 0 Active Medications: Current Medications Acetaminophen (Tylenol) 650 mg PO Q6HR PRN PRN Reason: Fever > 101 Stop: 09/22/17 12:24 Aripiprazole (Abilify) 15 mg PO DAILY [facility] PRN Reason: Protocol Stop: 09/24/17 10:41 Last Admin: 07/28/17 08:50 Dose: 15 mg Clotrimazole (Lotrimin 1% Cream) 1 appl TP BID [facility] Stop: 08/21/17 18:44 Last Admin: 07/28/17 08:50 Dose: 1 appl Divalproex Sodium (Depakote Sprinkle) 250 mg PO Q8HR [facility] PRN Reason: Protocol Stop: 09/22/17 15:59 Last Admin: 07/28/17 12:30 Dose: 250 mg Fluconazole (Diflucan) 100 mg PO DAILY [facility] Stop: 09/23/17 08:59 Last Admin: 07/28/17 08:52 Dose: 100 mg Ceftriaxone Sodium 1 gm/ (Sodium Chloride) 50 mls @ 100 mls/hr IV Q24HR [facility] Stop: 09/23/17 12:14 Last Admin: 07/28/17 12:30 Dose: 100 mls/hr Lactobacillus Rhamnosus (Culturelle 15b) 1 each PO DAILY [facility] Stop: 09/25/17 08:59 Last Admin: 07/28/17 08:52 Dose: 1 each Lorazepam (Ativan) 1 mg PO Q6HR PRN; Protocol PRN Reason: Anxiety Stop: 09/22/17 12:24 Last Admin: 07/26/17 18:41 Dose: 1 mg Losartan Potassium (Cozaar) 100 mg PO DAILY [facility] Stop: 09/23/17 08:59 Last Admin: 07/28/17 08:50 Dose: 100 mg Mirtazapine (Remeron) 7.5 mg PO HS [facility] PRN Reason: Protocol Stop: 09/22/17 20:59 Last Admin: 07/27/17 21:43 Dose: 7.5 mg Miscellaneous (Probiotic Screen) 1 ea [facility] PRN PRN PRN Reason: PROTOCOL Stop: 09/24/17 17:27 Tramadol HCl (Ultram) 50 mg PO Q4HR PRN PRN Reason: Pain (Moderate) Stop: 09/22/17 12:24 Last Admin: 07/28/17 09:47 Dose: 50 mg General: Oriented x3, No acute distress HEENT: Atraumatic, EOMI Neck: Supple Cardiovascular: Regular rate, Normal S1, Normal S2 Lungs: Clear to auscultation Abdomen: Bowel sounds Extremities: no Clubbing, no Edema (no) Skin: Rash, Significant lesion (bilateral buttocks and scrotum) Psych/Mental Status: Other (no issues) - Procedures Procedures: Procedures Procedure Code Date EXCISION OF DUODENUM, ENDO, DIAGN [id number] 05/28/17 INSERTION OF FEEDING DEVICE INTO STOMACH, PERC APPROACH [id number] 05/28/17 Assessment/Plan - Problem List Patient Problems: All Active Problems Abscess or cellulitis of perineum (Acute) [id number] Tiera infection (Acute) B37.9 - Assessment Assessment: same as problem list - Plan Plan: continue present management. Abs as per ID Psych meds as per Psych Nutritional Asmnt/Malnutr-PDOC - Dietary Evaluation Malnutrition Findings (Please click <Entered> for more info): Nutritional Asmnt/Malnutrition Start: 07/25/17 12: 27 Text: Status: Complete Freq: Document 07/25/17 12:27 [facility] (Rec: 07/25/17 12:32 [email or web address]) Nutritional Asmnt/Malnutrition Patient General Information Nutritional Screening High Risk Consult Diagnosis fungal infection Pertinent Medical Hx/Surgical Hx HTN, DM, CAD, CVA/TIA, dyslipidemia, dementia, encephalopathy Subjective Information Consult received for rash/ gungal infection/ cellulitis face/buttocks. Pt seen sleeping in bed at time of visit. Sitter at bedside. Per record PO intake 50% x 2 meals yesterday 07/24. Per nurse notes, GT clamped, pt yelling at times. Nurse reported pt consumed 70% of lunch today, saved Boost for later, tolerated regular diet. Current Diet Order/ Nutrition Support Regular Pertinent Medications remeron Pertinent Labs 07/24 Na 137, K 3.8, Cl 99, BUN 20, Cr 0.9, Glucose 79, POC 67-105, ALb 3.3 Nutritional Hx/Data Height 1.7 m Height (Calculated Centimeters) 170.2 Current Weight (lbs) 54.885 kg Weight (Calculated Kilograms) 54.9 Weight (Calculated Grams) 15304.7 [place] Body Weight 148 % [place] Body Weight 82 Body Mass Index (BMI) 18.9 Weight Status Approriate GI Symptoms GI Symptoms None Last BM 07/24 Difficult in: None Skin Integrity/Comment: Erythema and circular rashes to buttocks area and facial area Current %PO Fair (50-74%) Estimated Nutritional Goals BEE in Kcals: Using Current wt Calories/Kcals/Kg 27-32 Kcals Calculated 3411-9774 Protein: Using Current wt Protein g/k-1.2 Protein Calculated 55-66 Fluid: ml 1485-1760ml (1ml/kcal) Nutritional Problem 1. Problem Problem N/A Intervention/Recommendation Comments 1. Continue with current diet as ordered. 2. Monitor PO intake, wt, labs and skin integrity 3. F/U as low risk in 7 days, 08/01, PO check 07/29 Expected Outcomes/Goals Expected Outcomes/Goals 1. PO intake to meet at least 75% of nutritional needs. 2. Wt stability, skin to remain intact, labs to approach WNL.
--- NOTE | 2017-07-28 16:12 | Infectious Disease Prog Note ---
Infectious Disease Subjective - Review of Systems Service Date: 07/28/17 Subjective: cc pneumonia hpi- hct 36 ros nofevr o/e vss chest clear abd soft ext pulse dx pn psychosis plan rocephin Infectious Disease Objective - Results Result Diagrams: 07/28/17 05:44 07/24/17 06:10 Recent Labs: Laboratory Last Values WBC 6.9 Th/cmm (4.8-10.8) D 07/28/17 05:44 RBC 4.61 Mil/cmm (4.30-5.70) 07/28/17 05:44 Hgb 12.7 gm/dL (12-16) 07/28/17 05:44 Hct 38.6 % (41.0-60) L 07/28/17 05:44 MCV 83.8 fl (80-99) 07/28/17 05:44 MCH 27.5 pg (26.0-30.0) 07/28/17 05:44 MCHC Differential 32.8 pg (28.0-36.0) 07/28/17 05:44 RDW 16.2 % (11.5-20.0) 07/28/17 05:44 Plt Count 365 Th/cmm (150-400) D 07/28/17 05:44 MPV 9.1 fl 07/28/17 05:44 Neutrophils % 63.5 % (40.0-80.0) 07/28/17 05:44 Lymphocytes % 28.6 % (20.0-50.0) 07/28/17 05:44 Monocytes % 5.3 % (2.0-10.0) 07/28/17 05:44 Eosinophils % 2.5 % (0.0-5.0) 07/28/17 05:44 Basophils % 0.1 % (0.0-2.0) 07/28/17 05:44 Sodium 137 mEq/L (136-145) 07/24/17 06:10 Potassium 3.8 mEq/L (3.5-5.1) 07/24/17 06:10 Chloride 99 mEq/L (98-107) 07/24/17 06:10 Carbon Dioxide 32.7 mEq/L (21.0-31.0) H 07/24/17 06:10 Anion Gap 9.1 (7.0-16.0) 07/24/17 06:10 BUN 20 mg/dL (7-25) 07/24/17 06:10 Creatinine 0.9 mg/dL (0.7-1.3) 07/24/17 06:10 Est GFR ( Amer) > 60.0 ml/min (>90) 07/24/17 06:10 Est GFR (Non-Af Amer) > 60.0 ml/min 07/24/17 06:10 BUN/Creatinine Ratio 22.2 07/24/17 06:10 Glucose 79 mg/dL (70-105) 07/24/17 06:10 POC Glucose 105 MG/DL (70 - 105) 07/24/17 11:52 Calcium 9.4 mg/dL (8.6-10.3) 07/24/17 06:10 Total Bilirubin 0.2 mg/dL (0.3-1.0) L 07/24/17 06:10 AST 19 U/L (13-39) 07/24/17 06:10 ALT 15 U/L (7-52) 07/24/17 06:10 Alkaline Phosphatase 49 U/L (34-104) 07/24/17 06:10 Total Protein 6.4 gm/dL (6.0-8.3) 07/24/17 06:10 Albumin 3.3 gm/dL (4.2-5.5) L 07/24/17 06:10 Globulin 3.1 gm/dL 07/24/17 06:10 Albumin/Globulin Ratio 1.1 (1.0-1.8) 07/24/17 06:10 - Physical Exam Vitals and I&O: Vital Signs Temp 97.6 F 07/28/17 08:00 Pulse 97 07/28/17 08:50 Resp 19 07/28/17 08:00 BP 136/87 07/28/17 08:50 Pulse Ox 95 07/28/17 08:00 Intake & Output 07/27/17 07/28/17 07/28/17 18:59 06:59 18:59 Intake Total 400 Balance 400 Weight (lbs) 55.111 kg Intake: Intake, IV Amount 50 cefTRIAXone 1 gm In 50 Sodium Chloride 0.9% 50 ml @ 100 mls/hr IV Q24HR [facility] Rx#:[id number] Oral 350 Other: # Voids 3 # Bowel Movements 0 Active Medications: Current Medications Acetaminophen (Tylenol) 650 mg PO Q6HR PRN PRN Reason: Fever > 101 Stop: 09/22/17 12:24 Aripiprazole (Abilify) 15 mg PO DAILY [facility] PRN Reason: Protocol Stop: 09/24/17 10:41 Last Admin: 07/28/17 08:50 Dose: 15 mg Clotrimazole (Lotrimin 1% Cream) 1 appl TP BID [facility] Stop: 08/21/17 18:44 Last Admin: 07/28/17 08:50 Dose: 1 appl Divalproex Sodium (Depakote Sprinkle) 250 mg PO Q8HR [facility] PRN Reason: Protocol Stop: 09/22/17 15:59 Last Admin: 07/28/17 12:30 Dose: 250 mg Fluconazole (Diflucan) 100 mg PO DAILY [facility] Stop: 09/23/17 08:59 Last Admin: 07/28/17 08:52 Dose: 100 mg Ceftriaxone Sodium 1 gm/ (Sodium Chloride) 50 mls @ 100 mls/hr IV Q24HR [facility] Stop: 09/23/17 12:14 Last Admin: 07/28/17 12:30 Dose: 100 mls/hr Lactobacillus Rhamnosus (Culturelle 15b) 1 each PO DAILY [facility] Stop: 09/25/17 08:59 Last Admin: 07/28/17 08:52 Dose: 1 each Lorazepam (Ativan) 1 mg PO Q6HR PRN; Protocol PRN Reason: Anxiety Stop: 09/22/17 12:24 Last Admin: 07/26/17 18:41 Dose: 1 mg Losartan Potassium (Cozaar) 100 mg PO DAILY [facility] Stop: 09/23/17 08:59 Last Admin: 07/28/17 08:50 Dose: 100 mg Mirtazapine (Remeron) 7.5 mg PO HS [facility] PRN Reason: Protocol Stop: 09/22/17 20:59 Last Admin: 07/27/17 21:43 Dose: 7.5 mg Miscellaneous (Probiotic Screen) 1 ea MC PRN PRN PRN Reason: PROTOCOL Stop: 09/24/17 17:27 Tramadol HCl (Ultram) 50 mg PO Q4HR PRN PRN Reason: Pain (Moderate) Stop: 09/22/17 12:24 Last Admin: 07/28/17 09:47 Dose: 50 mg - Procedures Procedures: Procedures Procedure Code Date EXCISION OF DUODENUM, ENDO, DIAGN [id number] 05/28/17 INSERTION OF FEEDING DEVICE INTO STOMACH, PERC APPROACH [id number] 05/28/17 Infectious Disease Assmt/Plan - Problem List Patient Problems: All Active Problems Abscess or cellulitis of perineum (Acute) [id number] Tiera infection (Acute) B37.9 Nutritional Asmnt/Malnutr-PDOC - Dietary Evaluation Malnutrition Findings (Please click <Entered> for more info): Nutritional Asmnt/Malnutrition Start: 07/25/17 12: 27 Text: Status: Complete Freq: Document 07/25/17 12:27 BRUCE (Rec: 07/25/17 12:32 [facility] Nutritional Asmnt/Malnutrition Patient General Information Nutritional Screening High Risk Consult Diagnosis fungal infection Pertinent Medical Hx/Surgical Hx HTN, DM, CAD, CVA/TIA, dyslipidemia, dementia, encephalopathy Subjective Information Consult received for rash/ gungal infection/ cellulitis face/buttocks. Pt seen sleeping in bed at time of visit. Sitter at bedside. Per record PO intake 50% x 2 meals yesterday 07/24. Per nurse notes, GT clamped, pt yelling at times. Nurse reported pt consumed 70% of lunch today, saved Boost for later, tolerated regular diet. Current Diet Order/ Nutrition Support Regular Pertinent Medications remeron Pertinent Labs 07/24 Na 137, K 3.8, Cl 99, BUN 20, Cr 0.9, Glucose 79, POC 67-105, ALb 3.3 Nutritional Hx/Data Height 1.7 m Height (Calculated Centimeters) 170.2 Current Weight (lbs) 54.885 kg Weight (Calculated Kilograms) 54.9 Weight (Calculated Grams) 64972.7 [place] Body Weight 148 % [place] Body Weight 82 Body Mass Index (BMI) 18.9 Weight Status Approriate GI Symptoms GI Symptoms None Last BM 07/24 Difficult in: None Skin Integrity/Comment: Erythema and circular rashes to buttocks area and facial area Current %PO Fair (50-74%) Estimated Nutritional Goals BEE in Kcals: Using Current wt Calories/Kcals/Kg 27-32 Kcals Calculated 1508-2412 Protein: Using Current wt Protein g/k-1.2 Protein Calculated 55-66 Fluid: ml 1485-1760ml (1ml/kcal) Nutritional Problem 1. Problem Problem N/A Intervention/Recommendation Comments 1. Continue with current diet as ordered. 2. Monitor PO intake, wt, labs and skin integrity 3. F/U as low risk in 7 days, 08/01, PO check 07/29 Expected Outcomes/Goals Expected Outcomes/Goals 1. PO intake to meet at least 75% of nutritional needs. 2. Wt stability, skin to remain intact, labs to approach WNL.
--- NOTE | 2017-07-28 22:35 | Progress Notes ---
DATE: 07/28/2017 Case was discussed with staff of the patient, reviewed records. The patient continue episodes of yelling and screaming, but he seems to be showing progress. He wants to go home. He is sleeping well, eating well. Staff is working on placement for this patient. Also, he is physically not well, they are dealing with his fungal infection. He is compliant with the medication with no side effects, no sedation, no nausea, and no extrapyramidal symptoms. Thank you very much for allowing me to participate in the care of this most interesting gentleman. JOB# [id number]
[2017-07-29] MEDS: Lactobacillus Rhamnosus GG 15 Billion CFU CAP.SPRINK PO SCH ×2 (09:21→10:09)
[2017-07-29] MEDS: Multivitamin w/ Minerals Tab PO SCH ×2 (09:22→10:11)
[2017-07-29] MEDS: cefTRIAXone 1 GM in Sodium Chloride 0.9% 50 ML IV SCH (12:53)
--- NOTE | 2017-07-29 15:23 | General Progress Note ---
Subjective - Review of Systems Service Date: 07/29/17 Events since last encounter: Physical Therapy finds him too stiff to make him participate in walking. Oral intake has decresed. Meds thru g tube. Difficulty in placement. never comes to see him. Insurance did not authorize for SNF. Patient has Dementia. Abandoned by the family according to the SW. Patient is on IV antibiotics and has a g tube. Subjective: Patient is sleepy, not in distress, feeding decresed, sitter 1:1 present Objective - Results Result Diagrams: 07/28/17 05:44 07/24/17 06:10 Recent Labs: Laboratory Last Values WBC 6.9 Th/cmm (4.8-10.8) D 07/28/17 05:44 RBC 4.61 Mil/cmm (4.30-5.70) 07/28/17 05:44 Hgb 12.7 gm/dL (12-16) 07/28/17 05:44 Hct 38.6 % (41.0-60) L 07/28/17 05:44 MCV 83.8 fl (80-99) 07/28/17 05:44 MCH 27.5 pg (26.0-30.0) 07/28/17 05:44 MCHC Differential 32.8 pg (28.0-36.0) 07/28/17 05:44 RDW 16.2 % (11.5-20.0) 07/28/17 05:44 Plt Count 365 Th/cmm (150-400) D 07/28/17 05:44 MPV 9.1 fl 07/28/17 05:44 Neutrophils % 63.5 % (40.0-80.0) 07/28/17 05:44 Lymphocytes % 28.6 % (20.0-50.0) 07/28/17 05:44 Monocytes % 5.3 % (2.0-10.0) 07/28/17 05:44 Eosinophils % 2.5 % (0.0-5.0) 07/28/17 05:44 Basophils % 0.1 % (0.0-2.0) 07/28/17 05:44 Sodium 137 mEq/L (136-145) 07/24/17 06:10 Potassium 3.8 mEq/L (3.5-5.1) 07/24/17 06:10 Chloride 99 mEq/L (98-107) 07/24/17 06:10 Carbon Dioxide 32.7 mEq/L (21.0-31.0) H 07/24/17 06:10 Anion Gap 9.1 (7.0-16.0) 07/24/17 06:10 BUN 20 mg/dL (7-25) 07/24/17 06:10 Creatinine 0.9 mg/dL (0.7-1.3) 07/24/17 06:10 Est GFR ( Amer) > 60.0 ml/min (>90) 07/24/17 06:10 Est GFR (Non-Af Amer) > 60.0 ml/min 07/24/17 06:10 BUN/Creatinine Ratio 22.2 07/24/17 06:10 Glucose 79 mg/dL (70-105) 07/24/17 06:10 POC Glucose 105 MG/DL (70 - 105) 07/24/17 11:52 Calcium 9.4 mg/dL (8.6-10.3) 07/24/17 06:10 Total Bilirubin 0.2 mg/dL (0.3-1.0) L 07/24/17 06:10 AST 19 U/L (13-39) 07/24/17 06:10 ALT 15 U/L (7-52) 07/24/17 06:10 Alkaline Phosphatase 49 U/L (34-104) 07/24/17 06:10 Total Protein 6.4 gm/dL (6.0-8.3) 07/24/17 06:10 Albumin 3.3 gm/dL (4.2-5.5) L 07/24/17 06:10 Globulin 3.1 gm/dL 07/24/17 06:10 Albumin/Globulin Ratio 1.1 (1.0-1.8) 07/24/17 06:10 - Physical Exam Vitals and I&O: Vital Signs Temp 96.9 F 07/29/17 12:00 Pulse 85 07/29/17 12:00 Resp 20 07/29/17 12:00 BP 143/114 07/29/17 12:00 Pulse Ox 97 07/29/17 12:00 Intake & Output 03/04/18 03/05/18 03/05/18 18:59 06:59 18:59 Intake Total 50 Balance 50 Weight (lbs) 56.563 kg 55.021 kg Intake: Intake, IV Amount 50 cefTRIAXone 1 gm In 50 Sodium Chloride 0.9% 50 ml @ 100 mls/hr IV Q24HR [facility] Rx#:[id number] Other: # Voids 4 Active Medications: Current Medications Acetaminophen (Tylenol) 650 mg PO Q6HR PRN PRN Reason: Fever > 101 Stop: 09/22/17 12:24 Aripiprazole (Abilify) 15 mg PO DAILY [facility] PRN Reason: Protocol Stop: 09/24/17 10:41 Last Admin: 07/29/17 10:10 Dose: 15 mg Clotrimazole (Lotrimin 1% Cream) 1 appl TP BID [facility] Stop: 08/21/17 18:44 Last Admin: 07/29/17 09:21 Dose: Not Given Divalproex Sodium (Depakote Sprinkle) 250 mg PO Q8HR [facility] PRN Reason: Protocol Stop: 09/22/17 15:59 Last Admin: 07/29/17 05:08 Dose: 250 mg Fluconazole (Diflucan) 100 mg PO DAILY [facility] Stop: 09/23/17 08:59 Last Admin: 07/29/17 10:11 Dose: 100 mg Ceftriaxone Sodium 1 gm/ (Sodium Chloride) 50 mls @ 100 mls/hr IV Q24HR [facility] Stop: 09/23/17 12:14 Last Admin: 07/29/17 12:53 Dose: 100 mls/hr Lactobacillus Rhamnosus (Culturelle 15b) 1 each PO DAILY [facility] Stop: 09/25/17 08:59 Last Admin: 07/29/17 10:09 Dose: 1 each Lorazepam (Ativan) 1 mg PO Q6HR PRN; Protocol PRN Reason: Anxiety Stop: 09/22/17 12:24 Last Admin: 07/29/17 10:29 Dose: 1 mg Losartan Potassium (Cozaar) 100 mg PO DAILY [facility] Stop: 09/23/17 08:59 Last Admin: 07/29/17 10:18 Dose: Not Given Mirtazapine (Remeron) 7.5 mg PO HS [facility] PRN Reason: Protocol Stop: 09/22/17 20:59 Last Admin: 07/28/17 21:12 Dose: 7.5 mg Miscellaneous (Probiotic Screen) 1 ea MC PRN PRN PRN Reason: PROTOCOL Stop: 09/24/17 17:27 Tramadol HCl (Ultram) 50 mg PO Q4HR PRN PRN Reason: Pain (Moderate) Stop: 09/22/17 12:24 Last Admin: 07/28/17 09:47 Dose: 50 mg General: Oriented x3, No acute distress HEENT: Atraumatic, EOMI Neck: Supple Cardiovascular: Regular rate, Normal S1, Normal S2 Lungs: Clear to auscultation Abdomen: Bowel sounds Extremities: no Clubbing, no Edema (no) Skin: Rash, Significant lesion (bilateral buttocks and scrotum), Other (B/L buttocks rash still red and warm to touch) Psych/Mental Status: Other (altered mentation, decresed comprehension, screams ' want to go home') - Procedures Procedures: Procedures Procedure Code Date EXCISION OF DUODENUM, ENDO, DIAGN [id number] 05/28/17 INSERTION OF FEEDING DEVICE INTO STOMACH, PERC APPROACH [id number] 05/28/17 Assessment/Plan - Problem List Patient Problems: All Active Problems Abscess or cellulitis of perineum (Acute) [id number] Tiera infection (Acute) B37.9 - Assessment Assessment: same as problem list - Plan Plan: continue present management. Abs as per ID Psych meds as per Psych Nutritional Asmnt/Malnutr-PDOC - Dietary Evaluation Malnutrition Findings (Please click <Entered> for more info): Nutritional Asmnt/Malnutrition Start: 07/25/17 12: 27 Text: Status: Complete Freq: Document 07/25/17 12:27 BRUCE (Rec: 07/25/17 12:32 [facility]) Nutritional Asmnt/Malnutrition Patient General Information Nutritional Screening High Risk Consult Diagnosis fungal infection Pertinent Medical Hx/Surgical Hx HTN, DM, CAD, CVA/TIA, dyslipidemia, dementia, encephalopathy Subjective Information Consult received for rash/ gungal infection/ cellulitis face/buttocks. Pt seen sleeping in bed at time of visit. Sitter at bedside. Per record PO intake 50% x 2 meals yesterday 07/24. Per nurse notes, GT clamped, pt yelling at times. Nurse reported pt consumed 70% of lunch today, saved Boost for later, tolerated regular diet. Current Diet Order/ Nutrition Support Regular Pertinent Medications remeron Pertinent Labs 07/24 Na 137, K 3.8, Cl 99, BUN 20, Cr 0.9, Glucose 79, POC 67-105, ALb 3.3 Nutritional Hx/Data Height 1.7 m Height (Calculated Centimeters) 170.2 Current Weight (lbs) 54.885 kg Weight (Calculated Kilograms) 54.9 Weight (Calculated Grams) 54088.7 [place] Body Weight 148 % [place] Body Weight 82 Body Mass Index (BMI) 18.9 Weight Status Approriate GI Symptoms GI Symptoms None Last BM 07/24 Difficult in: None Skin Integrity/Comment: Erythema and circular rashes to buttocks area and facial area Current %PO Fair (50-74%) Estimated Nutritional Goals BEE in Kcals: Using Current wt Calories/Kcals/Kg 27-32 Kcals Calculated 4133-4641 Protein: Using Current wt Protein g/k-1.2 Protein Calculated 55-66 Fluid: ml 1485-1760ml (1ml/kcal) Nutritional Problem 1. Problem Problem N/A Intervention/Recommendation Comments 1. Continue with current diet as ordered. 2. Monitor PO intake, wt, labs and skin integrity 3. F/U as low risk in 7 days, 08/01, PO check 07/29 Expected Outcomes/Goals Expected Outcomes/Goals 1. PO intake to meet at least 75% of nutritional needs. 2. Wt stability, skin to remain intact, labs to approach WNL.
[2017-07-29 21:25] VITALS: BP 157/90
--- NOTE | 2017-07-29 22:35 | Progress Notes ---
DATE: 07/29/2017 Case was discussed with staff of the patient. The patient on the medical floor, they are treating his medical condition. He continues to have episodes of get agitated and sleeping better, eating better. He is compliant with the medication with no side effects, no sedation, no nausea, no extrapyramidal symptoms. I did increase his Abilify to 15 mg a day. Thank you very much for allowing me to participate in the care of this most interesting gentleman. JOB# [id number]
[2017-07-30] MEDS: Multivitamin w/ Minerals Tab PO SCH (10:12)
[2017-07-30] MEDS: Lactobacillus Rhamnosus GG 15 Billion CFU CAP.SPRINK PO SCH (10:14)
[2017-07-30] MEDS: cefTRIAXone 1 GM in Sodium Chloride 0.9% 50 ML IV SCH (12:59)
--- NOTE | 2017-07-30 15:00 | General Progress Note ---
Subjective - Review of Systems Service Date: 07/30/17 Events since last encounter: Patient is not eating. nutritional support needed. He has g tube which is being used for medications. will start on gtube feedings. Dietary consult will be obtained Subjective: Patient is awake, not in distress. Refusing the food. Objective - Results Result Diagrams: 07/28/17 05:44 07/24/17 06:10 Recent Labs: Laboratory Last Values WBC 6.9 Th/cmm (4.8-10.8) D 07/28/17 05:44 RBC 4.61 Mil/cmm (4.30-5.70) 07/28/17 05:44 Hgb 12.7 gm/dL (12-16) 07/28/17 05:44 Hct 38.6 % (41.0-60) L 07/28/17 05:44 MCV 83.8 fl (80-99) 07/28/17 05:44 MCH 27.5 pg (26.0-30.0) 07/28/17 05:44 MCHC Differential 32.8 pg (28.0-36.0) 07/28/17 05:44 RDW 16.2 % (11.5-20.0) 07/28/17 05:44 Plt Count 365 Th/cmm (150-400) D 07/28/17 05:44 MPV 9.1 fl 07/28/17 05:44 Neutrophils % 63.5 % (40.0-80.0) 07/28/17 05:44 Lymphocytes % 28.6 % (20.0-50.0) 07/28/17 05:44 Monocytes % 5.3 % (2.0-10.0) 07/28/17 05:44 Eosinophils % 2.5 % (0.0-5.0) 07/28/17 05:44 Basophils % 0.1 % (0.0-2.0) 07/28/17 05:44 Sodium 137 mEq/L (136-145) 07/24/17 06:10 Potassium 3.8 mEq/L (3.5-5.1) 07/24/17 06:10 Chloride 99 mEq/L (98-107) 07/24/17 06:10 Carbon Dioxide 32.7 mEq/L (21.0-31.0) H 07/24/17 06:10 Anion Gap 9.1 (7.0-16.0) 07/24/17 06:10 BUN 20 mg/dL (7-25) 07/24/17 06:10 Creatinine 0.9 mg/dL (0.7-1.3) 07/24/17 06:10 Est GFR ( Amer) > 60.0 ml/min (>90) 07/24/17 06:10 Est GFR (Non-Af Amer) > 60.0 ml/min 07/24/17 06:10 BUN/Creatinine Ratio 22.2 07/24/17 06:10 Glucose 79 mg/dL (70-105) 07/24/17 06:10 POC Glucose 105 MG/DL (70 - 105) 07/24/17 11:52 Calcium 9.4 mg/dL (8.6-10.3) 07/24/17 06:10 Total Bilirubin 0.2 mg/dL (0.3-1.0) L 07/24/17 06:10 AST 19 U/L (13-39) 07/24/17 06:10 ALT 15 U/L (7-52) 07/24/17 06:10 Alkaline Phosphatase 49 U/L (34-104) 07/24/17 06:10 Total Protein 6.4 gm/dL (6.0-8.3) 07/24/17 06:10 Albumin 3.3 gm/dL (4.2-5.5) L 07/24/17 06:10 Globulin 3.1 gm/dL 07/24/17 06:10 Albumin/Globulin Ratio 1.1 (1.0-1.8) 07/24/17 06:10 - Physical Exam Vitals and I&O: Vital Signs Temp 98.2 F 07/30/17 04:00 Pulse 83 07/30/17 10:10 Resp 18 07/30/17 08:00 BP 167/93 07/30/17 10:10 Pulse Ox 95 07/30/17 04:00 Intake & Output 07/29/17 07/30/17 07/30/17 18:59 06:59 18:59 Intake Total 650 150 150 Balance 650 150 150 Weight (lbs) 54.885 kg 54.885 kg 54.885 kg Intake: Intake, IV Amount 50 cefTRIAXone 1 gm In 50 Sodium Chloride 0.9% 50 ml @ 100 mls/hr IV Q24HR [facility] Rx#:[id number] Oral 400 150 Other 200 150 Other: # Voids 3 2 # Bowel Movements 1 0 Stool Characteristics Soft Active Medications: Current Medications Acetaminophen (Tylenol) 650 mg PO Q6HR PRN PRN Reason: Fever > 101 Stop: 09/22/17 12:24 Aripiprazole (Abilify) 15 mg PO DAILY [facility] PRN Reason: Protocol Stop: 09/24/17 10:41 Last Admin: 07/30/17 10:11 Dose: 15 mg Clotrimazole (Lotrimin 1% Cream) 1 appl TP BID [facility] Stop: 08/21/17 18:44 Last Admin: 07/30/17 10:12 Dose: 1 appl Divalproex Sodium (Depakote Sprinkle) 250 mg PO Q8HR [facility] PRN Reason: Protocol Stop: 09/22/17 15:59 Last Admin: 07/30/17 13:02 Dose: 250 mg Fluconazole (Diflucan) 100 mg PO DAILY [facility] Stop: 09/23/17 08:59 Last Admin: 07/30/17 10:12 Dose: 100 mg Ceftriaxone Sodium 1 gm/ (Sodium Chloride) 50 mls @ 100 mls/hr IV Q24HR [facility] Stop: 09/23/17 12:14 Last Admin: 07/30/17 12:59 Dose: 100 mls/hr Lactobacillus Rhamnosus (Culturelle 15b) 1 each PO DAILY [facility] Stop: 09/25/17 08:59 Last Admin: 07/30/17 10:14 Dose: 1 each Lorazepam (Ativan) 1 mg PO Q6HR PRN; Protocol PRN Reason: Anxiety Stop: 09/22/17 12:24 Last Admin: 07/29/17 10:29 Dose: 1 mg Losartan Potassium (Cozaar) 100 mg PO DAILY [facility] Stop: 09/23/17 08:59 Last Admin: 07/30/17 10:10 Dose: 100 mg Mirtazapine (Remeron) 7.5 mg PO HS [facility] PRN Reason: Protocol Stop: 09/22/17 20:59 Last Admin: 07/29/17 22:15 Dose: 7.5 mg Miscellaneous (Probiotic Screen) 1 ea MC PRN PRN PRN Reason: PROTOCOL Stop: 09/24/17 17:27 Tramadol HCl (Ultram) 50 mg PO Q4HR PRN PRN Reason: Pain (Moderate) Stop: 09/22/17 12:24 Last Admin: 07/30/17 13:10 Dose: 50 mg General: Oriented x3, No acute distress HEENT: Atraumatic, EOMI Neck: Supple Cardiovascular: Regular rate, Normal S1, Normal S2 Lungs: Clear to auscultation Abdomen: Bowel sounds Extremities: no Clubbing, no Edema (no) Skin: Rash, Significant lesion (bilateral buttocks and scrotum), Other (B/L buttocks rash still red and warm to touch) Psych/Mental Status: Other (altered mentation, decresed comprehension, screams ' want to go home') - Procedures Procedures: Procedures Procedure Code Date EXCISION OF DUODENUM, ENDO, DIAGN [id number] 05/28/17 INSERTION OF FEEDING DEVICE INTO STOMACH, PERC APPROACH [id number] 05/28/17 Assessment/Plan - Problem List Patient Problems: All Active Problems Abscess or cellulitis of perineum (Acute) [id number] Tiera infection (Acute) B37.9 - Assessment Assessment: Abcess/cellulitis in the buttocks and scrotal area. Fungal infection Malnutrition Dementia Psychosis on treatment - Plan Plan: continue present management. start g tube feeding for nutrition Dietary consult Abs as per ID Psych meds as per Psych Nutritional Asmnt/Malnutr-PDOC - Dietary Evaluation Malnutrition Findings (Please click <Entered> for more info): Nutritional Asmnt/Malnutrition Start: 07/25/17 12: 27 Text: Status: Complete Freq: Document 07/25/17 12:27 ANGEL LUIS (Rec: 07/25/17 12:32 [id number] Nutritional Asmnt/Malnutrition Patient General Information Nutritional Screening High Risk Consult Diagnosis fungal infection Pertinent Medical Hx/Surgical Hx HTN, DM, CAD, CVA/TIA, dyslipidemia, dementia, encephalopathy Subjective Information Consult received for rash/ gungal infection/ cellulitis face/buttocks. Pt seen sleeping in bed at time of visit. Sitter at bedside. Per record PO intake 50% x 2 meals yesterday 07/24. Per nurse notes, GT clamped, pt yelling at times. Nurse reported pt consumed 70% of lunch today, saved Boost for later, tolerated regular diet. Current Diet Order/ Nutrition Support Regular Pertinent Medications remeron Pertinent Labs 07/24 Na 137, K 3.8, Cl 99, BUN 20, Cr 0.9, Glucose 79, POC 67-105, ALb 3.3 Nutritional Hx/Data Height 1.7 m Height (Calculated Centimeters) 170.2 Current Weight (lbs) 54.885 kg Weight (Calculated Kilograms) 54.9 Weight (Calculated Grams) 09456.7 [place] Body Weight 148 % [place] Body Weight 82 Body Mass Index (BMI) 18.9 Weight Status Approriate GI Symptoms GI Symptoms None Last BM 07/24 Difficult in: None Skin Integrity/Comment: Erythema and circular rashes to buttocks area and facial area Current %PO Fair (50-74%) Estimated Nutritional Goals BEE in Kcals: Using Current wt Calories/Kcals/Kg 27-32 Kcals Calculated 2767-1773 Protein: Using Current wt Protein g/k-1.2 Protein Calculated 55-66 Fluid: ml 1485-1760ml (1ml/kcal) Nutritional Problem 1. Problem Problem N/A Intervention/Recommendation Comments 1. Continue with current diet as ordered. 2. Monitor PO intake, wt, labs and skin integrity 3. F/U as low risk in 7 days, 08/01, PO check 07/29 Expected Outcomes/Goals Expected Outcomes/Goals 1. PO intake to meet at least 75% of nutritional needs. 2. Wt stability, skin to remain intact, labs to approach WNL.
--- NOTE | 2017-07-30 22:22 | Progress Notes ---
DATE: 07/30/2017 Case was discussed with staff of the patient, reviewed records. The patient continues to be confused, continues to be unable to participate in a meaningful conversation or make safe plan for self-care. He is still being treated for his fungal infection on the medical floor. Working on discharge planning to go to SNF facility; however, is having a problem with family and insurance as the family wanted to get discharged and places the insurance when is approved and so on and so far he is compliant with the medication, no side effects. Continues to have episodes of agitation, irritability, yelling, and screaming ____. No side effects with the medication, no sedation, no nausea, and no extrapyramidal symptoms. Thank you very much for allowing me to participate in the care of this patient. JOB# [id number]
[2017-07-31] MEDS: Multivitamin w/ Minerals Tab PO SCH (09:59)
[2017-07-31] MEDS: Lactobacillus Rhamnosus GG 15 Billion CFU CAP.SPRINK PO SCH (09:59)
[2017-07-31] MEDS: cefTRIAXone 1 GM in Sodium Chloride 0.9% 50 ML IV SCH (12:18)
--- NOTE | 2017-07-31 14:47 | General Progress Note ---
Subjective - Review of Systems Service Date: 07/31/17 Events since last encounter: sleeping, calm, on g-tube bolus feeding. RN Lindsey discontinued the regular diet, in the processof ordering the g tube feeding. Subjective: Patient is sleeping, not in distress. . Objective - Results Result Diagrams: 07/28/17 05:44 07/24/17 06:10 Recent Labs: Laboratory Last Values WBC 6.9 Th/cmm (4.8-10.8) D 07/28/17 05:44 RBC 4.61 Mil/cmm (4.30-5.70) 07/28/17 05:44 Hgb 12.7 gm/dL (12-16) 07/28/17 05:44 Hct 38.6 % (41.0-60) L 07/28/17 05:44 MCV 83.8 fl (80-99) 07/28/17 05:44 MCH 27.5 pg (26.0-30.0) 07/28/17 05:44 MCHC Differential 32.8 pg (28.0-36.0) 07/28/17 05:44 RDW 16.2 % (11.5-20.0) 07/28/17 05:44 Plt Count 365 Th/cmm (150-400) D 07/28/17 05:44 MPV 9.1 fl 07/28/17 05:44 Neutrophils % 63.5 % (40.0-80.0) 07/28/17 05:44 Lymphocytes % 28.6 % (20.0-50.0) 07/28/17 05:44 Monocytes % 5.3 % (2.0-10.0) 07/28/17 05:44 Eosinophils % 2.5 % (0.0-5.0) 07/28/17 05:44 Basophils % 0.1 % (0.0-2.0) 07/28/17 05:44 Sodium 137 mEq/L (136-145) 07/24/17 06:10 Potassium 3.8 mEq/L (3.5-5.1) 07/24/17 06:10 Chloride 99 mEq/L (98-107) 07/24/17 06:10 Carbon Dioxide 32.7 mEq/L (21.0-31.0) H 07/24/17 06:10 Anion Gap 9.1 (7.0-16.0) 07/24/17 06:10 BUN 20 mg/dL (7-25) 07/24/17 06:10 Creatinine 0.9 mg/dL (0.7-1.3) 07/24/17 06:10 Est GFR ( Amer) > 60.0 ml/min (>90) 07/24/17 06:10 Est GFR (Non-Af Amer) > 60.0 ml/min 07/24/17 06:10 BUN/Creatinine Ratio 22.2 07/24/17 06:10 Glucose 79 mg/dL (70-105) 07/24/17 06:10 POC Glucose 105 MG/DL (70 - 105) 07/24/17 11:52 Calcium 9.4 mg/dL (8.6-10.3) 07/24/17 06:10 Total Bilirubin 0.2 mg/dL (0.3-1.0) L 07/24/17 06:10 AST 19 U/L (13-39) 07/24/17 06:10 ALT 15 U/L (7-52) 07/24/17 06:10 Alkaline Phosphatase 49 U/L (34-104) 07/24/17 06:10 Total Protein 6.4 gm/dL (6.0-8.3) 07/24/17 06:10 Albumin 3.3 gm/dL (4.2-5.5) L 07/24/17 06:10 Globulin 3.1 gm/dL 07/24/17 06:10 Albumin/Globulin Ratio 1.1 (1.0-1.8) 07/24/17 06:10 - Physical Exam Vitals and I&O: Vital Signs Temp 98.3 F 07/31/17 04:00 Pulse 85 07/31/17 09:59 Resp 19 07/31/17 04:00 BP 145/93 07/31/17 09:59 Pulse Ox 99 07/30/17 20:00 Intake & Output 07/30/17 07/31/17 07/31/17 18:59 06:59 18:59 Intake Total 200 950 Balance 200 950 Weight (lbs) 54.885 kg 54.885 kg Intake: Intake, IV Amount 50 cefTRIAXone 1 gm In 50 Sodium Chloride 0.9% 50 ml @ 100 mls/hr IV Q24HR [facility] Rx#:[id number] Oral 500 Tube Feeding 450 Other 150 Other: # Voids 2 # Bowel Movements 1 Stool Characteristics Soft Soft Active Medications: Current Medications Acetaminophen (Tylenol) 650 mg PO Q6HR PRN PRN Reason: Fever > 101 Stop: 09/22/17 12:24 Aripiprazole (Abilify) 15 mg PO DAILY [facility] PRN Reason: Protocol Stop: 09/24/17 10:41 Last Admin: 07/31/17 10:00 Dose: 15 mg Clotrimazole (Lotrimin 1% Cream) 1 appl TP BID [facility] Stop: 08/21/17 18:44 Last Admin: 07/31/17 10:00 Dose: 1 appl Divalproex Sodium (Depakote Sprinkle) 250 mg PO Q8HR [facility] PRN Reason: Protocol Stop: 09/22/17 15:59 Last Admin: 07/31/17 12:20 Dose: 250 mg Ceftriaxone Sodium 1 gm/ (Sodium Chloride) 50 mls @ 100 mls/hr IV Q24HR [facility] Stop: 09/23/17 12:14 Last Admin: 07/31/17 12:18 Dose: 100 mls/hr Lactobacillus Rhamnosus (Culturelle 15b) 1 each PO DAILY [facility] Stop: 09/25/17 08:59 Last Admin: 07/31/17 09:59 Dose: 1 each Lorazepam (Ativan) 1 mg PO Q6HR PRN; Protocol PRN Reason: Anxiety Stop: 09/22/17 12:24 Last Admin: 07/31/17 12:27 Dose: 1 mg Losartan Potassium (Cozaar) 100 mg PO DAILY [facility] Stop: 09/23/17 08:59 Last Admin: 07/31/17 09:59 Dose: 100 mg Mirtazapine (Remeron) 7.5 mg PO HS [facility] PRN Reason: Protocol Stop: 09/22/17 20:59 Last Admin: 07/30/17 22:18 Dose: 7.5 mg Miscellaneous (Probiotic Screen) 1 ea [facility] PRN PRN PRN Reason: PROTOCOL Stop: 09/24/17 17:27 Tramadol HCl (Ultram) 50 mg PO Q4HR PRN PRN Reason: Pain (Moderate) Stop: 09/22/17 12:24 Last Admin: 07/31/17 09:59 Dose: 50 mg General: Oriented x3, No acute distress HEENT: Atraumatic, EOMI Neck: Supple Cardiovascular: Regular rate, Normal S1, Normal S2 Lungs: Clear to auscultation Abdomen: Bowel sounds Extremities: no Clubbing, no Edema (no) Skin: Rash, Significant lesion (bilateral buttocks and scrotum), Other ( erythema improved in the buttocks area and scrotal area is also getting better) Psych/Mental Status: Other (altered mentation, decresed comprehension, screams ' want to go home') - Procedures Procedures: Procedures Procedure Code Date EXCISION OF DUODENUM, ENDO, DIAGN [id number] 05/28/17 INSERTION OF FEEDING DEVICE INTO STOMACH, PERC APPROACH [id number] 05/28/17 Assessment/Plan - Problem List Patient Problems: All Active Problems Abscess or cellulitis of perineum (Acute) [id number] Tiera infection (Acute) B37.9 - Assessment Assessment: Abcess/cellulitis in the buttocks and scrotal area. Fungal infection Malnutrition Dementia Psychosis on treatment - Plan Plan: continue present management. start g tube feeding for nutrition Dietary consult Abs as per ID Psych meds as per Psych Nutritional Asmnt/Malnutr-PDOC - Dietary Evaluation Malnutrition Findings (Please click <Entered> for more info): Nutritional Asmnt/Malnutrition Start: 07/25/17 12: 27 Text: Status: Complete Freq: Document 07/25/17 12:27 ANGEL LUIS (Rec: 07/25/17 12:32 LCANGEL LUISG [email or web address]) Nutritional Asmnt/Malnutrition Patient General Information Nutritional Screening High Risk Consult Diagnosis fungal infection Pertinent Medical Hx/Surgical Hx HTN, DM, CAD, CVA/TIA, dyslipidemia, dementia, encephalopathy Subjective Information Consult received for rash/ gungal infection/ cellulitis face/buttocks. Pt seen sleeping in bed at time of visit. Sitter at bedside. Per record PO intake 50% x 2 meals yesterday 07/24. Per nurse notes, GT clamped, pt yelling at times. Nurse reported pt consumed 70% of lunch today, saved Boost for later, tolerated regular diet. Current Diet Order/ Nutrition Support Regular Pertinent Medications remeron Pertinent Labs 07/24 Na 137, K 3.8, Cl 99, BUN 20, Cr 0.9, Glucose 79, POC 67-105, ALb 3.3 Nutritional Hx/Data Height 1.7 m Height (Calculated Centimeters) 170.2 Current Weight (lbs) 54.885 kg Weight (Calculated Kilograms) 54.9 Weight (Calculated Grams) 23172.7 [place] Body Weight 148 % [place] Body Weight 82 Body Mass Index (BMI) 18.9 Weight Status Approriate GI Symptoms GI Symptoms None Last BM 07/24 Difficult in: None Skin Integrity/Comment: Erythema and circular rashes to buttocks area and facial area Current %PO Fair (50-74%) Estimated Nutritional Goals BEE in Kcals: Using Current wt Calories/Kcals/Kg 27-32 Kcals Calculated 5032-0388 Protein: Using Current wt Protein g/k-1.2 Protein Calculated 55-66 Fluid: ml 1485-1760ml (1ml/kcal) Nutritional Problem 1. Problem Problem N/A Intervention/Recommendation Comments 1. Continue with current diet as ordered. 2. Monitor PO intake, wt, labs and skin integrity 3. F/U as low risk in 7 days, 08/01, PO check 07/29 Expected Outcomes/Goals Expected Outcomes/Goals 1. PO intake to meet at least 75% of nutritional needs. 2. Wt stability, skin to remain intact, labs to approach WNL.
[2017-08-01 06:54] LABS: % BASOPHILS 1.2 % (0.0-2.0); % EOSINOPHILS 3.6 % (0.0-5.0); % LYMPHOCYTES 28.8 % (20.0-50.0); % MONOCYTES 8.4 % (2.0-10.0); BASOPHILE ABSOLUTE 0.1 Th/cumm (0-0.2); EOSINOPHILE ABSOLUTE 0.2 Th/cmm (0.1-0.4); HEMATOCRIT 36.2 % (41.0-60); HEMOGLOBIN 12.1 gm/dL (12-16); LYMPHOCYTE ABSOLUTE 1.7 Th/cmm (1.5-3.0); MEAN CELL VOLUME 82.7 fl (80-99); MEAN CORPUSCULAR HEMOGLOBIN 27.6 pg (26.0-30.0); MEAN CORPUSCULAR HGB CONC 33.3 pg (28.0-36.0); MONOCYTE ABSOLUTE 0.5 Th/cmm (0.3-1.0); NEUTROPHILE ABSOLUTE 3.4 Th/cmm (1.8-8.0); PLATELET COUNT 371 Th/cmm (150-400); RED BLOOD COUNT 4.37 Mil/cmm (4.30-5.70); RED CELL DISTRIBUTION WIDTH 16.2 % (11.5-20.0); WHITE BLOOD COUNT 5.9 Th/cmm (4.8-10.8)
[2017-08-01 07:16] LABS: ANION GAP 5.1 (7.0-16.0); BUN - UREA NITROGEN 15 mg/dL (7-25); CALCIUM SERUM 9.6 mg/dL (8.6-10.3); CARBON DIOXIDE 32.7 mEq/L (21.0-31.0); CHLORIDE 105 mEq/L (98-107); CREATININE - SERUM 0.8 mg/dL (0.7-1.3); GFR AFRICAN-AMERICAN > 60.0 ml/min (>90); GFR NON AFRICAN-AMERICAN > 60.0 ml/min; GLUCOSE 80 mg/dL (70-105); POTASSIUM SERUM 3.8 mEq/L (3.5-5.1); SODIUM SERUM 139 mEq/L (136-145)
[2017-08-01] MEDS: Lactobacillus Rhamnosus GG 15 Billion CFU CAP.SPRINK PO SCH (11:03)
[2017-08-01] MEDS: Multivitamin w/ Minerals Tab PO SCH (11:04)
--- NOTE | 2017-08-01 12:51 | General Progress Note ---
Subjective - Review of Systems Service Date: 08/01/17 Events since last encounter: Reviewed tjhe pictures of wound. slight improvement noted.on tube feeding and oral feeding. will count the calorie intake . Subjective: Patient is awake, not in distress. sitting at lunch table, not eating Objective - Results Result Diagrams: 08/01/17 06:11 08/01/17 06:11 Recent Labs: Laboratory Last Values WBC 5.9 Th/cmm (4.8-10.8) 08/01/17 06:11 RBC 4.37 Mil/cmm (4.30-5.70) 08/01/17 06:11 Hgb 12.1 gm/dL (12-16) 08/01/17 06:11 Hct 36.2 % (41.0-60) L 08/01/17 06:11 MCV 82.7 fl (80-99) 08/01/17 06:11 MCH 27.6 pg (26.0-30.0) 08/01/17 06:11 MCHC Differential 33.3 pg (28.0-36.0) 08/01/17 06:11 RDW 16.2 % (11.5-20.0) 08/01/17 06:11 Plt Count 371 Th/cmm (150-400) 08/01/17 06:11 MPV 8.0 fl 08/01/17 06:11 Neutrophils % 58.0 % (40.0-80.0) 08/01/17 06:11 Lymphocytes % 28.8 % (20.0-50.0) 08/01/17 06:11 Monocytes % 8.4 % (2.0-10.0) 08/01/17 06:11 Eosinophils % 3.6 % (0.0-5.0) 08/01/17 06:11 Basophils % 1.2 % (0.0-2.0) 08/01/17 06:11 Sodium 139 mEq/L (136-145) 08/01/17 06:11 Potassium 3.8 mEq/L (3.5-5.1) 08/01/17 06:11 Chloride 105 mEq/L (98-107) 08/01/17 06:11 Carbon Dioxide 32.7 mEq/L (21.0-31.0) H 08/01/17 06:11 Anion Gap 5.1 (7.0-16.0) L 08/01/17 06:11 BUN 15 mg/dL (7-25) 08/01/17 06:11 Creatinine 0.8 mg/dL (0.7-1.3) 08/01/17 06:11 Est GFR ( Amer) > 60.0 ml/min (>90) 08/01/17 06:11 Est GFR (Non-Af Amer) > 60.0 ml/min 08/01/17 06:11 BUN/Creatinine Ratio 18.8 08/01/17 06:11 Glucose 80 mg/dL (70-105) 08/01/17 06:11 POC Glucose 105 MG/DL (70 - 105) 07/24/17 11:52 Calcium 9.6 mg/dL (8.6-10.3) 08/01/17 06:11 Total Bilirubin 0.2 mg/dL (0.3-1.0) L 07/24/17 06:10 AST 19 U/L (13-39) 07/24/17 06:10 ALT 15 U/L (7-52) 07/24/17 06:10 Alkaline Phosphatase 49 U/L (34-104) 07/24/17 06:10 Total Protein 6.4 gm/dL (6.0-8.3) 07/24/17 06:10 Albumin 3.3 gm/dL (4.2-5.5) L 07/24/17 06:10 Globulin 3.1 gm/dL 07/24/17 06:10 Albumin/Globulin Ratio 1.1 (1.0-1.8) 07/24/17 06:10 - Physical Exam Vitals and I&O: Vital Signs Temp 98.2 F 08/01/17 04:37 Pulse 70 08/01/17 11:02 Resp 18 08/01/17 04:37 BP 170/97 08/01/17 11:02 Pulse Ox 94 08/01/17 04:37 Intake & Output 07/31/17 08/01/17 08/01/17 18:59 06:59 18:59 Intake Total 250 120 Balance 250 120 Weight (lbs) 54.885 kg 52.299 kg Intake: Oral 250 120 Other: # Voids 3 2 # Bowel Movements 1 0 Stool Characteristics Soft Active Medications: Current Medications Acetaminophen (Tylenol) 650 mg PO Q6HR PRN PRN Reason: Fever > 101 Stop: 09/22/17 12:24 Aripiprazole (Abilify) 15 mg PO DAILY [facility] PRN Reason: Protocol Stop: 09/24/17 10:41 Last Admin: 08/01/17 11:03 Dose: 15 mg Clotrimazole (Lotrimin 1% Cream) 1 appl TP BID [facility] Stop: 08/21/17 18:44 Last Admin: 08/01/17 10:39 Dose: 1 appl Divalproex Sodium (Depakote Sprinkle) 250 mg PO Q8HR [facility] PRN Reason: Protocol Stop: 09/22/17 15:59 Last Admin: 08/01/17 06:18 Dose: 250 mg Ceftriaxone Sodium 1 gm/ (Sodium Chloride) 50 mls @ 100 mls/hr IV Q24HR [facility] Stop: 09/23/17 12:14 Last Admin: 07/31/17 12:18 Dose: 100 mls/hr Lactobacillus Rhamnosus (Culturelle 15b) 1 each PO DAILY [facility] Stop: 09/25/17 08:59 Last Admin: 08/01/17 11:03 Dose: 1 each Lorazepam (Ativan) 1 mg PO Q6HR PRN; Protocol PRN Reason: Anxiety Stop: 09/22/17 12:24 Last Admin: 07/31/17 12:27 Dose: 1 mg Losartan Potassium (Cozaar) 100 mg PO DAILY [facility] Stop: 09/23/17 08:59 Last Admin: 08/01/17 11:02 Dose: 100 mg Mirtazapine (Remeron) 7.5 mg PO HS [facility] PRN Reason: Protocol Stop: 09/22/17 20:59 Last Admin: 07/31/17 20:54 Dose: 7.5 mg Miscellaneous (Probiotic Screen) 1 ea [facility] PRN PRN PRN Reason: PROTOCOL Stop: 09/24/17 17:27 Tramadol HCl (Ultram) 50 mg PO Q4HR PRN PRN Reason: Pain (Moderate) Stop: 09/22/17 12:24 Last Admin: 07/31/17 20:54 Dose: 50 mg General: Oriented x3, No acute distress HEENT: Atraumatic, EOMI Neck: Supple Cardiovascular: Regular rate, Normal S1, Normal S2 Lungs: Clear to auscultation Abdomen: Bowel sounds Extremities: no Clubbing, no Edema (no) Skin: Rash, Significant lesion (bilateral buttocks and scrotum), Other ( erythema improved in the buttocks area and scrotal area is also getting better) Psych/Mental Status: Other (altered mentation, decresed comprehension, screams ' want to go home') - Procedures Procedures: Procedures Procedure Code Date EXCISION OF DUODENUM, ENDO, DIAGN [id number] 05/28/17 INSERTION OF FEEDING DEVICE INTO STOMACH, PERC APPROACH [id number] 05/28/17 Assessment/Plan - Problem List Patient Problems: All Active Problems Abscess or cellulitis of perineum (Acute) [id number] Tiera infection (Acute) B37.9 - Assessment Assessment: Abcess/cellulitis in the buttocks and scrotal area. Fungal infection Malnutrition Dementia Psychosis on treatment - Plan Plan: continue present management. start g tube feeding for nutrition Dietary consult Abs as per ID Psych meds as per Psych Nutritional Asmnt/Malnutr-PDOC - Dietary Evaluation Malnutrition Findings (Please click <Entered> for more info): Nutritional Asmnt/Malnutrition Start: 07/25/17 12: 27 Text: Status: Complete Freq: Document 07/25/17 12:27 LCHENG (Rec: 07/25/17 12:32 LCHENG [email or web address]) Nutritional Asmnt/Malnutrition Patient General Information Nutritional Screening High Risk Consult Diagnosis fungal infection Pertinent Medical Hx/Surgical Hx HTN, DM, CAD, CVA/TIA, dyslipidemia, dementia, encephalopathy Subjective Information Consult received for rash/ gungal infection/ cellulitis face/buttocks. Pt seen sleeping in bed at time of visit. Sitter at bedside. Per record PO intake 50% x 2 meals yesterday 07/24. Per nurse notes, GT clamped, pt yelling at times. Nurse reported pt consumed 70% of lunch today, saved Boost for later, tolerated regular diet. Current Diet Order/ Nutrition Support Regular Pertinent Medications remeron Pertinent Labs 07/24 Na 137, K 3.8, Cl 99, BUN 20, Cr 0.9, Glucose 79, POC 67-105, ALb 3.3 Nutritional Hx/Data Height 1.7 m Height (Calculated Centimeters) 170.2 Current Weight (lbs) 54.885 kg Weight (Calculated Kilograms) 54.9 Weight (Calculated Grams) 83367.7 [place] Body Weight 148 % [place] Body Weight 82 Body Mass Index (BMI) 18.9 Weight Status Approriate GI Symptoms GI Symptoms None Last BM 07/24 Difficult in: None Skin Integrity/Comment: Erythema and circular rashes to buttocks area and facial area Current %PO Fair (50-74%) Estimated Nutritional Goals BEE in Kcals: Using Current wt Calories/Kcals/Kg 27-32 Kcals Calculated 0127-0249 Protein: Using Current wt Protein g/k-1.2 Protein Calculated 55-66 Fluid: ml 1485-1760ml (1ml/kcal) Nutritional Problem 1. Problem Problem N/A Intervention/Recommendation Comments 1. Continue with current diet as ordered. 2. Monitor PO intake, wt, labs and skin integrity 3. F/U as low risk in 7 days, 08/01, PO check 07/29 Expected Outcomes/Goals Expected Outcomes/Goals 1. PO intake to meet at least 75% of nutritional needs. 2. Wt stability, skin to remain intact, labs to approach WNL.
[2017-08-01] MEDS: cefTRIAXone 1 GM in Sodium Chloride 0.9% 50 ML IV SCH (14:40)
--- NOTE | 2017-08-01 19:28 | Consultation ---
DATE OF CONSULTATION: 08/01/2017 Case was discussed with staff of the patient, reviewed records. The patient continues to have episodes of agitation, acting out, but in general, he is doing the same. He has episodes where he is more agitated than the others. Still he is medically not well. They are working on placement for this patient, which was a big issue on the [facility] as they were unable to get him a placement for several issues including insurance and family not willing to accept him to go to any other place than what they want and so far no side effects from the medications, no sedation, no nausea, no extrapyramidal symptoms. Thank you very much for allowing me to participate in the care of this most interesting gentleman. JOB# [id number]
[2017-08-01] MEDS: NYSTATIN 100000 UNITS/GM POWD TP SCH (22:38)
[2017-08-02] MEDS: Multivitamin w/ Minerals Tab PO SCH (08:57)
[2017-08-02] MEDS: Lactobacillus Rhamnosus GG 15 Billion CFU CAP.SPRINK PO SCH (08:57)
[2017-08-02] MEDS: NYSTATIN 100000 UNITS/GM POWD TP SCH ×2 (08:58→16:21)
--- NOTE | 2017-08-02 12:14 | Infectious Disease Prog Note ---
Infectious Disease Subjective - Review of Systems Subjective: cc pneumonia hpi- pt schedule for discharge at [facility] ros nofevr o/e vss chest clear abd soft ext pulse dx pn psychosis plan rocephin stop on discharge Infectious Disease Objective - Results Result Diagrams: 08/01/17 06:11 08/01/17 06:11 Recent Labs: Laboratory Last Values WBC 5.9 Th/cmm (4.8-10.8) 08/01/17 06:11 RBC 4.37 Mil/cmm (4.30-5.70) 08/01/17 06:11 Hgb 12.1 gm/dL (12-16) 08/01/17 06:11 Hct 36.2 % (41.0-60) L 08/01/17 06:11 MCV 82.7 fl (80-99) 08/01/17 06:11 MCH 27.6 pg (26.0-30.0) 08/01/17 06:11 MCHC Differential 33.3 pg (28.0-36.0) 08/01/17 06:11 RDW 16.2 % (11.5-20.0) 08/01/17 06:11 Plt Count 371 Th/cmm (150-400) 08/01/17 06:11 MPV 8.0 fl 08/01/17 06:11 Neutrophils % 58.0 % (40.0-80.0) 08/01/17 06:11 Lymphocytes % 28.8 % (20.0-50.0) 08/01/17 06:11 Monocytes % 8.4 % (2.0-10.0) 08/01/17 06:11 Eosinophils % 3.6 % (0.0-5.0) 08/01/17 06:11 Basophils % 1.2 % (0.0-2.0) 08/01/17 06:11 Sodium 139 mEq/L (136-145) 08/01/17 06:11 Potassium 3.8 mEq/L (3.5-5.1) 08/01/17 06:11 Chloride 105 mEq/L (98-107) 08/01/17 06:11 Carbon Dioxide 32.7 mEq/L (21.0-31.0) H 08/01/17 06:11 Anion Gap 5.1 (7.0-16.0) L 08/01/17 06:11 BUN 15 mg/dL (7-25) 08/01/17 06:11 Creatinine 0.8 mg/dL (0.7-1.3) 08/01/17 06:11 Est GFR ( Amer) > 60.0 ml/min (>90) 08/01/17 06:11 Est GFR (Non-Af Amer) > 60.0 ml/min 08/01/17 06:11 BUN/Creatinine Ratio 18.8 08/01/17 06:11 Glucose 80 mg/dL (70-105) 08/01/17 06:11 POC Glucose 105 MG/DL (70 - 105) 07/24/17 11:52 Calcium 9.6 mg/dL (8.6-10.3) 08/01/17 06:11 Total Bilirubin 0.2 mg/dL (0.3-1.0) L 07/24/17 06:10 AST 19 U/L (13-39) 07/24/17 06:10 ALT 15 U/L (7-52) 07/24/17 06:10 Alkaline Phosphatase 49 U/L (34-104) 07/24/17 06:10 Total Protein 6.4 gm/dL (6.0-8.3) 07/24/17 06:10 Albumin 3.3 gm/dL (4.2-5.5) L 07/24/17 06:10 Globulin 3.1 gm/dL 07/24/17 06:10 Albumin/Globulin Ratio 1.1 (1.0-1.8) 07/24/17 06:10 - Physical Exam Vitals and I&O: Vital Signs Temp 98.5 F 08/02/17 08:00 Pulse 91 08/02/17 08:57 Resp 18 08/02/17 08:00 BP 131/79 08/02/17 08:57 Pulse Ox 95 08/02/17 08:00 Intake & Output 08/01/17 08/02/17 08/02/17 18:59 06:59 18:59 Intake Total 700 100 Balance 700 100 Weight (lbs) 52.299 kg 52.163 kg Intake: Oral 400 100 Tube Feeding 300 Other: # Voids 3 # Bowel Movements 1 Stool Characteristics Soft Soft Active Medications: Current Medications Acetaminophen (Tylenol) 650 mg PO Q6HR PRN PRN Reason: Fever > 101 Stop: 09/22/17 12:24 Aripiprazole (Abilify) 15 mg PO DAILY [facility] PRN Reason: Protocol Stop: 09/24/17 10:41 Last Admin: 08/02/17 08:56 Dose: 15 mg Ascorbic Acid (Vitamin C) 500 mg PO DAILY [facility] Stop: 10/01/17 08:59 Last Admin: 08/02/17 08:57 Dose: 500 mg Clotrimazole (Lotrimin 1% Cream) 1 appl TP BID [facility] Stop: 08/21/17 18:44 Last Admin: 08/02/17 08:57 Dose: 1 appl Divalproex Sodium (Depakote Sprinkle) 250 mg PO Q8HR [facility] PRN Reason: Protocol Stop: 09/22/17 15:59 Last Admin: 08/02/17 06:31 Dose: 250 mg Fluconazole (Diflucan) 100 mg PO BID [facility] Stop: 08/15/17 16:59 Last Admin: 08/02/17 08:57 Dose: 100 mg Ceftriaxone Sodium 1 gm/ (Sodium Chloride) 50 mls @ 100 mls/hr IV Q24HR [facility] Stop: 09/23/17 12:14 Last Admin: 08/01/17 14:40 Dose: 100 mls/hr Lactobacillus Rhamnosus (Culturelle 15b) 1 each PO DAILY [facility] Stop: 09/25/17 08:59 Last Admin: 08/02/17 08:57 Dose: 1 each Lorazepam (Ativan) 1 mg PO Q6HR PRN; Protocol PRN Reason: Anxiety Stop: 09/22/17 12:24 Last Admin: 08/01/17 15:37 Dose: 1 mg Losartan Potassium (Cozaar) 100 mg PO DAILY [facility] Stop: 09/23/17 08:59 Last Admin: 08/02/17 08:57 Dose: 100 mg Mirtazapine (Remeron) 7.5 mg PO HS [facility] PRN Reason: Protocol Stop: 09/22/17 20:59 Last Admin: 08/01/17 20:32 Dose: 7.5 mg Miscellaneous (Probiotic Screen) 1 ea MC PRN PRN PRN Reason: PROTOCOL Stop: 09/24/17 17:27 Nystatin (Nystop) 0 units TP BID [facility] Stop: 09/30/17 20:44 Last Admin: 08/02/17 08:58 Dose: Not Given Tramadol HCl (Ultram) 50 mg PO Q4HR PRN PRN Reason: Pain (Moderate) Stop: 09/22/17 12:24 Last Admin: 07/31/17 20:54 Dose: 50 mg Zinc Sulfate (Zinc Sulfate) 220 mg PO DAILY [facility] Stop: 10/01/17 08:59 Last Admin: 08/02/17 08:57 Dose: 220 mg - Procedures Procedures: Procedures Procedure Code Date EXCISION OF DUODENUM, ENDO, DIAGN [id number] 05/28/17 INSERTION OF FEEDING DEVICE INTO STOMACH, PERC APPROACH [id number] 05/28/17 Infectious Disease Assmt/Plan - Problem List Patient Problems: All Active Problems Abscess or cellulitis of perineum (Acute) [id number] Tiera infection (Acute) B37.9 Nutritional Asmnt/Malnutr-PDOC - Dietary Evaluation Malnutrition Findings (Please click <Entered> for more info): Nutritional Asmnt/Malnutrition Start: 07/25/17 12: 27 Text: Status: Complete Freq: Document 07/25/17 12:27 ANGEL LUIS (Rec: 07/25/17 12:32 LCHEN [email or web address]) Nutritional Asmnt/Malnutrition Patient General Information Nutritional Screening High Risk Consult Diagnosis fungal infection Pertinent Medical Hx/Surgical Hx HTN, DM, CAD, CVA/TIA, dyslipidemia, dementia, encephalopathy Subjective Information Consult received for rash/ gungal infection/ cellulitis face/buttocks. Pt seen sleeping in bed at time of visit. Sitter at bedside. Per record PO intake 50% x 2 meals yesterday 07/24. Per nurse notes, GT clamped, pt yelling at times. Nurse reported pt consumed 70% of lunch today, saved Boost for later, tolerated regular diet. Current Diet Order/ Nutrition Support Regular Pertinent Medications remeron Pertinent Labs 07/24 Na 137, K 3.8, Cl 99, BUN 20, Cr 0.9, Glucose 79, POC 67-105, ALb 3.3 Nutritional Hx/Data Height 1.7 m Height (Calculated Centimeters) 170.2 Current Weight (lbs) 54.885 kg Weight (Calculated Kilograms) 54.9 Weight (Calculated Grams) 19370.7 [place] Body Weight 148 % [place] Body Weight 82 Body Mass Index (BMI) 18.9 Weight Status Approriate GI Symptoms GI Symptoms None Last BM 07/24 Difficult in: None Skin Integrity/Comment: Erythema and circular rashes to buttocks area and facial area Current %PO Fair (50-74%) Estimated Nutritional Goals BEE in Kcals: Using Current wt Calories/Kcals/Kg 27-32 Kcals Calculated 8822-2318 Protein: Using Current wt Protein g/k-1.2 Protein Calculated 55-66 Fluid: ml 1485-1760ml (1ml/kcal) Nutritional Problem 1. Problem Problem N/A Intervention/Recommendation Comments 1. Continue with current diet as ordered. 2. Monitor PO intake, wt, labs and skin integrity 3. F/U as low risk in 7 days, 08/01, PO check 07/29 Expected Outcomes/Goals Expected Outcomes/Goals 1. PO intake to meet at least 75% of nutritional needs. 2. Wt stability, skin to remain intact, labs to approach WNL.
[2017-08-02] MEDS: cefTRIAXone 1 GM in Sodium Chloride 0.9% 50 ML IV SCH (12:56)
--- NOTE | 2017-08-02 13:27 | General Progress Note ---
Subjective - Review of Systems Service Date: 08/02/17 Events since last encounter: No issues. Subjective: Patient is awake, not in distress. confused Objective - Results Result Diagrams: 08/01/17 06:11 08/01/17 06:11 Recent Labs: Laboratory Last Values WBC 5.9 Th/cmm (4.8-10.8) 08/01/17 06:11 RBC 4.37 Mil/cmm (4.30-5.70) 08/01/17 06:11 Hgb 12.1 gm/dL (12-16) 08/01/17 06:11 Hct 36.2 % (41.0-60) L 08/01/17 06:11 MCV 82.7 fl (80-99) 08/01/17 06:11 MCH 27.6 pg (26.0-30.0) 08/01/17 06:11 MCHC Differential 33.3 pg (28.0-36.0) 08/01/17 06:11 RDW 16.2 % (11.5-20.0) 08/01/17 06:11 Plt Count 371 Th/cmm (150-400) 08/01/17 06:11 MPV 8.0 fl 08/01/17 06:11 Neutrophils % 58.0 % (40.0-80.0) 08/01/17 06:11 Lymphocytes % 28.8 % (20.0-50.0) 08/01/17 06:11 Monocytes % 8.4 % (2.0-10.0) 08/01/17 06:11 Eosinophils % 3.6 % (0.0-5.0) 08/01/17 06:11 Basophils % 1.2 % (0.0-2.0) 08/01/17 06:11 Sodium 139 mEq/L (136-145) 08/01/17 06:11 Potassium 3.8 mEq/L (3.5-5.1) 08/01/17 06:11 Chloride 105 mEq/L (98-107) 08/01/17 06:11 Carbon Dioxide 32.7 mEq/L (21.0-31.0) H 08/01/17 06:11 Anion Gap 5.1 (7.0-16.0) L 08/01/17 06:11 BUN 15 mg/dL (7-25) 08/01/17 06:11 Creatinine 0.8 mg/dL (0.7-1.3) 08/01/17 06:11 Est GFR ( Amer) > 60.0 ml/min (>90) 08/01/17 06:11 Est GFR (Non-Af Amer) > 60.0 ml/min 08/01/17 06:11 BUN/Creatinine Ratio 18.8 08/01/17 06:11 Glucose 80 mg/dL (70-105) 08/01/17 06:11 POC Glucose 105 MG/DL (70 - 105) 07/24/17 11:52 Calcium 9.6 mg/dL (8.6-10.3) 08/01/17 06:11 Total Bilirubin 0.2 mg/dL (0.3-1.0) L 07/24/17 06:10 AST 19 U/L (13-39) 07/24/17 06:10 ALT 15 U/L (7-52) 07/24/17 06:10 Alkaline Phosphatase 49 U/L (34-104) 07/24/17 06:10 Total Protein 6.4 gm/dL (6.0-8.3) 07/24/17 06:10 Albumin 3.3 gm/dL (4.2-5.5) L 07/24/17 06:10 Globulin 3.1 gm/dL 07/24/17 06:10 Albumin/Globulin Ratio 1.1 (1.0-1.8) 07/24/17 06:10 - Physical Exam Vitals and I&O: Vital Signs Temp 98.5 F 08/02/17 08:00 Pulse 91 08/02/17 08:57 Resp 18 08/02/17 08:00 BP 131/79 08/02/17 08:57 Pulse Ox 95 08/02/17 08:00 Intake & Output 08/01/17 08/02/17 08/02/17 18:59 06:59 18:59 Intake Total 750 100 Balance 750 100 Weight (lbs) 52.299 kg 52.163 kg Intake: Intake, IV Amount 50 cefTRIAXone 1 gm In 50 Sodium Chloride 0.9% 50 ml @ 100 mls/hr IV Q24HR [facility] Rx#:[id number] Oral 400 100 Tube Feeding 300 Other: # Voids 3 # Bowel Movements 1 Stool Characteristics Soft Soft Active Medications: Current Medications Acetaminophen (Tylenol) 650 mg PO Q6HR PRN PRN Reason: Fever > 101 Stop: 09/22/17 12:24 Aripiprazole (Abilify) 15 mg PO DAILY [facility] PRN Reason: Protocol Stop: 09/24/17 10:41 Last Admin: 08/02/17 08:56 Dose: 15 mg Ascorbic Acid (Vitamin C) 500 mg PO DAILY [facility] Stop: 10/01/17 08:59 Last Admin: 08/02/17 08:57 Dose: 500 mg Clotrimazole (Lotrimin 1% Cream) 1 appl TP BID [facility] Stop: 08/21/17 18:44 Last Admin: 08/02/17 08:57 Dose: 1 appl Divalproex Sodium (Depakote Sprinkle) 250 mg PO Q8HR [facility] PRN Reason: Protocol Stop: 09/22/17 15:59 Last Admin: 08/02/17 12:33 Dose: 250 mg Fluconazole (Diflucan) 100 mg PO BID [facility] Stop: 08/15/17 16:59 Last Admin: 08/02/17 08:57 Dose: 100 mg Ceftriaxone Sodium 1 gm/ (Sodium Chloride) 50 mls @ 100 mls/hr IV Q24HR [facility] Stop: 09/23/17 12:14 Last Admin: 08/02/17 12:56 Dose: 100 mls/hr Lactobacillus Rhamnosus (Culturelle 15b) 1 each PO DAILY [facility] Stop: 09/25/17 08:59 Last Admin: 08/02/17 08:57 Dose: 1 each Lorazepam (Ativan) 1 mg PO Q6HR PRN; Protocol PRN Reason: Anxiety Stop: 09/22/17 12:24 Last Admin: 08/02/17 12:35 Dose: 1 mg Losartan Potassium (Cozaar) 100 mg PO DAILY [facility] Stop: 09/23/17 08:59 Last Admin: 08/02/17 08:57 Dose: 100 mg Mirtazapine (Remeron) 7.5 mg PO HS [facility] PRN Reason: Protocol Stop: 09/22/17 20:59 Last Admin: 08/01/17 20:32 Dose: 7.5 mg Miscellaneous (Probiotic Screen) 1 ea MC PRN PRN PRN Reason: PROTOCOL Stop: 09/24/17 17:27 Nystatin (Nystop) 0 units TP BID [facility] Stop: 09/30/17 20:44 Last Admin: 08/02/17 08:58 Dose: Not Given Tramadol HCl (Ultram) 50 mg PO Q4HR PRN PRN Reason: Pain (Moderate) Stop: 09/22/17 12:24 Last Admin: 07/31/17 20:54 Dose: 50 mg Zinc Sulfate (Zinc Sulfate) 220 mg PO DAILY [facility] Stop: 10/01/17 08:59 Last Admin: 08/02/17 08:57 Dose: 220 mg General: Oriented x3, No acute distress HEENT: Atraumatic, EOMI Neck: Supple Cardiovascular: Regular rate, Normal S1, Normal S2 Lungs: Clear to auscultation Abdomen: Bowel sounds Extremities: no Clubbing, no Edema (no) Skin: Rash, Significant lesion (bilateral buttocks and scrotum), Other ( erythema improved in the buttocks area and scrotal area is also getting better) Psych/Mental Status: Other (altered mentation, decresed comprehension, screams ' want to go home') - Procedures Procedures: Procedures Procedure Code Date EXCISION OF DUODENUM, ENDO, DIAGN [id number] 05/28/17 INSERTION OF FEEDING DEVICE INTO STOMACH, PERC APPROACH [id number] 05/28/17 Assessment/Plan - Problem List Patient Problems: All Active Problems Abscess or cellulitis of perineum (Acute) [id number] Tiera infection (Acute) B37.9 - Assessment Assessment: Abcess/cellulitis in the buttocks and scrotal area. Fungal infection Malnutrition Dementia Psychosis on treatment - Plan Plan: continue present management. start g tube feeding for nutrition Dietary consult Abs as per ID Psych meds as per Psych Nutritional Asmnt/Malnutr-PDOC - Dietary Evaluation Malnutrition Findings (Please click <Entered> for more info): Nutritional Asmnt/Malnutrition Start: 07/25/17 12: 27 Text: Status: Complete Freq: Document 07/25/17 12:27 BRUCE (Rec: 07/25/17 12:32 BRUCE [email or web address]) Nutritional Asmnt/Malnutrition Patient General Information Nutritional Screening High Risk Consult Diagnosis fungal infection Pertinent Medical Hx/Surgical Hx HTN, DM, CAD, CVA/TIA, dyslipidemia, dementia, encephalopathy Subjective Information Consult received for rash/ gungal infection/ cellulitis face/buttocks. Pt seen sleeping in bed at time of visit. Sitter at bedside. Per record PO intake 50% x 2 meals yesterday 07/24. Per nurse notes, GT clamped, pt yelling at times. Nurse reported pt consumed 70% of lunch today, saved Boost for later, tolerated regular diet. Current Diet Order/ Nutrition Support Regular Pertinent Medications remeron Pertinent Labs 07/24 Na 137, K 3.8, Cl 99, BUN 20, Cr 0.9, Glucose 79, POC 67-105, ALb 3.3 Nutritional Hx/Data Height 1.7 m Height (Calculated Centimeters) 170.2 Current Weight (lbs) 54.885 kg Weight (Calculated Kilograms) 54.9 Weight (Calculated Grams) 75694.7 [place] Body Weight 148 % [place] Body Weight 82 Body Mass Index (BMI) 18.9 Weight Status Approriate GI Symptoms GI Symptoms None Last BM 07/24 Difficult in: None Skin Integrity/Comment: Erythema and circular rashes to buttocks area and facial area Current %PO Fair (50-74%) Estimated Nutritional Goals BEE in Kcals: Using Current wt Calories/Kcals/Kg 27-32 Kcals Calculated 5869-6364 Protein: Using Current wt Protein g/k-1.2 Protein Calculated 55-66 Fluid: ml 1485-1760ml (1ml/kcal) Nutritional Problem 1. Problem Problem N/A Intervention/Recommendation Comments 1. Continue with current diet as ordered. 2. Monitor PO intake, wt, labs and skin integrity 3. F/U as low risk in 7 days, 08/01, PO check / Expected Outcomes/Goals Expected Outcomes/Goals 1. PO intake to meet at least 75% of nutritional needs. 2. Wt stability, skin to remain intact, labs to approach WNL.
--- NOTE | 2017-08-03 01:15 | Progress Notes ---
DATE: 08/02/2017 SUBJECTIVE: Case was discussed with the staff of patient and reviewed records. The patient continues to be unpredictable, impulsive, needing redirection. He continues to have episodes where he gets agitated. He is sleeping better, eating better. OBJECTIVE: He is compliant with the medication with no side effects, no sedation, no nausea, no extrapyramidal symptoms. is working on placement, which took a while when we were trying to do it because of insurance reasons and family issues. Thank you very much for allowing me to participate in the care of this most interesting gentleman. JOB# [id number]
== END 2017-08-02 20:08 | DRG 602 ==
LOC: MSI 00:05
PROVIDERS: ADMIT General Practice; ATTEND General Practice
DX: L03.317 Cellulitis of buttock (principal); J18.9 Pneumonia, unspecified organism; E46 Unspecified protein-calorie malnutrition; B49 Unspecified mycosis; G30.9 Alzheimer's disease, unspecified; F02.80 Dementia in other diseases classified elsewhere, unspecified severity, without behavioral disturbance, psychotic disturbance, mood disturbance, and anxiety; Z68.1 Body mass index [BMI] 19.9 or less, adult; G40.909 Epilepsy, unspecified, not intractable, without status epilepticus; I25.10 Atherosclerotic heart disease of native coronary artery without angina pectoris; I10 Essential (primary) hypertension; E78.5 Hyperlipidemia, unspecified; Z86.73 Personal history of transient ischemic attack (TIA), and cerebral infarction without residual deficits; Z93.1 Gastrostomy status; F29 Unspecified psychosis not due to a substance or known physiological condition; L02.31 Cutaneous abscess of buttock; N49.2 Inflammatory disorders of scrotum
CPT/HCPCS: 36415-UA; 71045-TC; 80048-TC; 80053-TC; 82948-90; 85025-TC; 94760; 97530; J0696; J2185; X3904; Z7610